=== PATIENT | male | born 1930 | race Caucasian/White ===

== ENCOUNTER 2016-03-31 09:22 | Inpatient (IN) | payer OTHER ==
[~2016-03-31] VITALS: Ht 157.5 cm; Wt 61.2 kg
[2016-03-31 10:21] LABS: HEMATOCRIT 39.8 % (42.0-52.0); HEMOGLOBIN 13.2 g/dl (14.0-18.0); MEAN CORPUSCULAR HEMOGLOBIN 26.6 pg (29.0-33.0); MEAN CORPUSCULAR HGB CONC 33.1 g/dl (32.0-37.0); MEAN CORPUSCULAR VOLUME 80.3 fl (82.0-101.0); MEAN PLATELET VOLUME 7.6 fl (7.4-10.4); PLATELET COUNT 468 10^3/UL (140-440); RED BLOOD COUNT 4.96 10^6/ul (4.70-6.10); RED CELL DISTRIBUTION WIDTH 12.4 % (11.5-14.5); UNCORRECTED WBC 24.1 10^3/ul (4.8-10.8); WHITE BLOOD COUNT 24.1 10^3/ul (4.8-10.8)
[2016-03-31 10:23] LABS: CONDITION 1; LH ANALYZER COMMENTS 1; SUSPECT 1
[2016-03-31 10:31] LABS: ALBUMIN 3.6 g/dl (3.3-4.9)
[2016-03-31 10:32] LABS: POTASSIUM 4.2 mmol/L (3.5-5.1)
[2016-03-31 10:34] LABS: ALBUMIN/GLOBULIN RATIO 1.02; BILIRUBIN,INDIRECT 0.9 mg/dl (0-1.1); BILIRUBIN,TOTAL 0.9 mg/dl (0.2-1.3); CREATININE 0.63 mg/dl (0.61-1.24); TOTAL PROTEIN 7.1 g/dl (6.1-8.1)
--- NOTE | 2016-03-31 10:45 | RADRPT ---
PROCEDURE: XR Lumbar Spine. CLINICAL INDICATION: Low back pain. TECHNIQUE: Three views of the lumbar spine are available for review COMPARISON: None available FINDINGS: There is mild straightening of the lumbar lordosis. Alignment is intact. No acute fracture or dislo cation is seen. The vertebral body heights are all normal. There is moderate to severe disk heigh t loss with discogenic endplate changes at L5-S1 with marked facet arthropathy. There is moderate d isk height loss at L4-L5. The remainder of the intervertebral disk heights are preserved. Paraspino us soft tissues are grossly unremarkable. No radiopaque foreign body is identified. IMPRESSION: 1. No acute fracture or traumatic malalignment. 2. 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 Moderate discogenic diseas e at L5 RPTAT: BB .Nikki Berrios MD, Date Time Electronically viewed and signed by .Nikki Berrios MD, on 03/31/2016 10:45 .O/
--- NOTE | 2016-03-31 10:47 | RADRPT ---
PROCEDURE: XR Cervical Spine. CLINICAL INDICATION: Neck pain TECHNIQUE: 3 views of the cervical spine were performed. The images [facility]. COMPARISON: None. FINDINGS: There is straightening of the cervical lordosis. There is no acute fracture or traumatic malalignme nt. There is moderate disk height loss with endplate osteophytes at C5-C6 and C6-C7. Prominent unc overtebral spurring are seen at C5-C6 and C6-C7. There is no facet arthropathy. The uncovertebral tashia ints are unremarkable. The intervertebral disc spaces are well maintained. There are no abnormal rubén cifications. The prevertebral soft tissues are normal. No radiopaque foreign bodies are identified. IMPRESSION: 1. No acute fracture or traumatic malalignment. 2. Moderate degenerative changes at C5-C6 and C6-C7. RPTAT: BB .Nikki Berrios MD, MD Date Time Electronically viewed and signed by .Nikki Berrios MD, on 03/31/2016 10:46 .O/
--- NOTE | 2016-03-31 10:50 | RADRPT ---
PROCEDURE: XR Chest. CLINICAL INDICATION: Chest pain TECHNIQUE: Single frontal chest x-ray. COMPARISON: None. FINDINGS: There is approximately 6 cm opacity with central lucency which could represent central cavitation in the left mid lung. Several pulmonary nodules are seen in bilateral lungs. There is opacity in the left lung base with blunting of the left costophrenic angle. Left apical air space disease is also identified. There is no pneumothorax. There is aortic atherosclerosis. The osseous structures are intact. IMPRESSION: 1. Approximately 6 cm left hilar opacity with central lucency. Recommend CT chest for further evalu ation. 2. Several small bilateral pulmonary nodules. 3. Focal consolidation in the left lung base with small left pleural effusion. 4. Focal consolidation in the left lung apex. RPTAT: BB .Nikki Berrios MD, Date Time Electronically viewed and signed by .Nikki Berrios MD, on 03/31/2016 10:49 .O/
[2016-03-31 10:55] LABS: TROPONIN-I 0.215 ng/ml (0.00-0.12)
[2016-03-31 11:05] LABS: LYMPHOCYTES # 0.7 10^3/ul (0.8-2.9); MONOCYTE # 2.2 10^3/ul (0.3-0.9); NEUTROPHIL # 20.2 10^3/ul (1.6-7.5)
--- NOTE | 2016-03-31 11:18 | ERA ---
ER Documentation Chief Complaint Date/Time DATE: 03/31/16 TIME: 947 Chief Complaint LT SIDE UPPER BACK PAIN RADIATING TO LOWER BACK X 1 DAY HPI 85-year-old male presents to the emergency department with his son complaining of back pain. Patient was in his normal state of health until approximately 3 months ago which time he immigrated from [facility]. Since then, he has been off his diabetic medications. Patient has been complaining of difficulty breathing and pleuritic chest discomfort as well as a left upper back pain which became worse over the last 1 day. He denies fevers chills sputum production or hemoptysis. He has no significant weight loss. His pain is described as an 8 out of 10. There is no trauma involving the back. ROS All systems reviewed and are negative except as per history of present illness. Medications Home Meds No Active Prescriptions or Reported Meds Allergies Allergies: Coded Allergies: No Known Allergy (Unverified , 03/31/16) PMhx/Soc Hx Alcohol Use: No Hx Tobacco Use: No Smoking Status: Never smoker FmHx Noncontributory for chief complaint Physical Exam Vitals Vital Signs Date Time Temp Pulse Resp B/P Pulse Ox O2 Delivery O2 Flow Rate FiO2 03/31/16 10:06 Nasal Cannula 2 03/31/16 09:27 98.1 115 18 142/67 96 Physical Exam GENERAL: Patient is a thin cachectic ill-appearing gentleman HEENT: Pupils equal, round, and reactive to light. EOMI. There is no scleral icterus. NECK: C-spine is soft and supple, there is no meningismus. There is no cervical lymphadenopathy. LUNGS: Clear to auscultation bilaterally. There are no rales, wheezes or rhonchi. HEART: Regular rate and rhythm, no murmurs, clicks, rubs or gallops. ABDOMEN: Soft, non-tender, non-distended. There are bowel sounds in all four quadrants. No rebound or guarding. EXTREMITIES: There is no peripheral cyanosis or edema. No focal swelling or erythema. Back: No midline spinal tenderness in the cervical or lumbar spine NEURO: The patient moves all four extremities with 5/5 strength. Cranial nerves II - XII are intact. Normal gait. Alert and oriented SKIN: There is no apparent rash or petechiae. HEME/LYMPHATIC: There is no evidence of excessive bruising or lymphedema. PSYCHIATRIC: The patient does not appear anxious or depressed. Result Diagram: 03/31/16 1000 03/31/16 1000 Results 24 hrs Laboratory Tests Test 03/31/16 09:56 03/31/16 10:00 Bedside Glucose 339mg/dL Alanine Aminotransferase (ALT/SGPT) 19IU/L Albumin 3.6g/dl Albumin/Globulin Ratio 1.02 Alkaline Phosphatase 121IU/L Anion Gap 23 Aspartate Amino Transf (AST/SGOT) 20IU/L Band Neutrophils % 4.0% Basophils # 10^3/ul Basophils % % Blood Morphology Comment Blood Urea Nitrogen 19mg/dl Calcium Level 9.0mg/dl Carbon Dioxide Level 20mmol/L Chloride Level 94mmol/L Creatinine 0.63mg/dl Differential Comment MANUAL DIFF Direct Bilirubin 0.00mg/dl Eosinophils # 10^3/ul Eosinophils % % Globulin 3.50g/dl Glucose Level 316mg/dl Hematocrit 39.8% Hemoglobin 13.2g/dl Indirect Bilirubin 0.9mg/dl Lymphocytes # 0.710^3/ul Lymphocytes % 3.0% Mean Corpuscular Hemoglobin 26.6pg Mean Corpuscular Hemoglobin Concent 33.1g/dl Mean Corpuscular Volume 80.3fl Mean Platelet Volume 7.6fl Monocytes # 2.210^3/ul Monocytes % 9.0% Neutrophils # 20.210^3/ul Neutrophils % 84.0% Nucleated Red Blood Cells # 10^3/ul Nucleated Red Blood Cells % /100WBC Platelet Count 90176^3/UL Potassium Level 4.2mmol/L Red Blood Count 4.9610^6/ul Red Cell Distribution Width 12.4% Sodium Level 133mmol/L Total Bilirubin 0.9mg/dl Total Protein 7.1g/dl Troponin I 0.215ng/ml White Blood Count 24.110^3/ul Current Medications Medications (Trade) Dose Ordered Sig/Silvia Route PRN Reason Start Time Stop Time Status Last Admin Dose Admin Insulin Human Regular 4 unit 4 unit ONCE ONCE SC 03/31/16 11:30 03/31/16 11:31 Levofloxacin/ Dextrose 150 ml @ 100 mls/hr ONCE ONCE IVPB 03/31/16 11:30 03/31/16 12:59 Piperacillin Sod/ Tazobactam Sod (Zosyn 3.375gm/ 100 ml (Pmx)) 100 ml @ 200 mls/hr ONCE ONCE IVPB 03/31/16 11:30 03/31/16 11:59 Procedures/MDM Patient was taken to a room, seen and evaluated. Comfort measures were initiated. Diagnostic tests were ordered and reviewed. 3 LEAD RHYTHM STRIP: Sinus tachycardia EK lead EKG reviewed by myself: Sinus tachycardia Normal [place] and intervals Nonspecific ST and T-wave changes without ST elevation Impression: Nonspecific EKG RADIOLOGY: reviewed with the radiologist CONSULTATION: hospitalist was notified for admission REEVALUATION: Patient is remained hemodynamically stable MEDICAL DECISION MAKING: Elderly 85-year-old gentleman with uncontrolled diabetes presents to the emergency department with back pain. Although the differential diagnosis entertained include musculoskeletal complaints, ultimately the patient's evaluation seems indicative of a pulmonary process with referred pain. At this time, based on his chest x-ray, I am concerned over a possible tumor versus abscess versus tuberculosis. Patient has been placed in isolation with a mask. Patient has been covered with antibiotics for possible abscess as well as obvious pneumonia. Patient's blood sugar has been treated with insulin. Patient will require further diagnostic testing with CT scanning as well as further treatment based on that result. Ultimately, patient is obviously high risk and will require admission to the hospital for observation monitoring and treatment. Departure Diagnosis: Primary Impression: Pneumonia Condition: LASHA Tate Mar 31, 2016 11:18
[2016-03-31] MEDS ORDERED: SOD CHLORIDE 0.9% 100 ML ONE (11:19)
[2016-03-31] MEDS ORDERED: IODIXANOL LOCM 100 ML BTL ONE (11:19)
[2016-03-31] MEDS ORDERED: SOD CHLORIDE 0.9% 1,000 ML IV ONE (11:30)
[2016-03-31] MEDS ORDERED: INSULIN REGULAR, HUMAN 100 UNIT/1 ML 3ML VIAL SC ONE (11:30)
[2016-03-31] MEDS ORDERED: PIPER-TAZO 3.375 GM IV (PMX) 100 ML IVPB ONE (11:30)
[2016-03-31] MEDS ORDERED: LEVOFLOXACIN 750MG/D5W (PMX) 150 ML IVPB ONE (11:30)
[2016-03-31] MEDS ORDERED: NACL 0.9% 3 ML SYG IV SCH (12:00)
[2016-03-31] MEDS ORDERED: ACETAMINOPHEN 650 MG SUPP PR PRN (12:00)
[2016-03-31] MEDS ORDERED: ONDANSETRON 4 MG TAB PO PRN (12:00)
[2016-03-31] MEDS ORDERED: DOCUSATE SODIUM 100 MG CAP PO PRN (12:00)
[2016-03-31] MEDS ORDERED: BISACODYL (EC) 5 MG TAB PO PRN (12:00)
[2016-03-31] MEDS: INSULIN ASPART [NOVOLOG] 3 ML PEN SC SCH ×3 (12:00→21:55)
--- NOTE | 2016-03-31 12:09 | RADRPT ---
PROCEDURE: CT Chest With Contrast CLINICAL INDICATION: Possible pulmonary mass TECHNIQUE: Volumetric acquisition of the thorax was performed following the intravenous administra tion of contrast. One or more of the following dose reduction techniques were used: - Automated exposure control. - Adjustment of the mA and/or kV according to patient size. - Use of iterative reconstruction technique. Radiation Dose: CTDI = 6.84 mGy; DLP = 284.99 mGy-cm. COMPARISON: None. FINDINGS: Lung hussein: There is consolidation and volume loss within the left upper lobe most extensive entry manager iorly within the apical posterior segment containing air bronchograms and a 2 cm area of cavitation. There is a smaller area of nodular infiltrate within the left lower lobe containing air bronchogra ms and extending to the posterior lateral pleura. Within the posterior segment of the right upper l obe there is a 1.2 cm noncalcified nodule. There is a 2.4 cm nodular focus with air bronchograms se en within the posterior segment of the right upper lobe. There are also several smaller nodular den sities on the order of 7 and 5 mm within the posterior segment of the right upper lobe. The pleural spaces: There is a moderate water density left pleural fluid accumulation most of which gravitating posteriorly. There is also loculated left pleural fluid accumulation seen anterior medi ally adjacent to the mediastinum. No pneumothorax is evident. Lymph nodes: No pathologically enlarged nodes are evident. Cardiovascular structures: The heart is normal in size. There is a small pericardial effusion. The aorta appears intact and normal in caliber. The central pulmonary arteries appear patent. Thyroid: Unremarkable. Superior abdominal structures: The liver appears fatty infiltrated. No adrenal mass is evident. A 2 cm cyst is seen at the medial superior pole right kidney. There is a small hiatal hernia. A smal l accessory spleen is evident. Osseous structures: Moderate diffuse degenerative spine changes are identified. There are cortical step off this involving the sternum which more likely represent motion artifact then fractures. Cli nical correlation is indicated. A 1 cm hemangioma is seen within the T7 vertebral body. IMPRESSION: 1. There is consolidation and volume loss with air bronchograms involving the left upper lobe parti cularly involving the apical posterior segment. There is an area of necrosis approximate 2 cm in di ameter seen at the posterior lateral aspect of this consolidation. 2. There is a nodular area of consolidation adjacent to the posterior lateral pleural with in the l eft lower lobe containing air bronchograms. 3. A similar nodular infiltrate containing air bronchograms is seen within the posterior segment of the right upper lobe measuring approximately 2.4 cm in diameter. There is also 1.2 cm nodular infi ltrate within the posterior segment of the right upper lobe along with several smaller noncalcified nodular densities on the order of 7-5 mm. These could be inflammatory or neoplastic in etiology. 4. Moderate sized water density left pleural fluid accumulation most of which gravitating posterior ly but there is a loculated component seen along the mediastinum at the medial left upper lung zone. 5. No adenopathy is evident 6. Small pericardial effusion with a normal sized heart. 7. Fatty infiltrated liver with no focal lesion. There is a 2 cm cyst at the medial superior pole right kidney and a small hiatal hernia. 8. Diffuse degenerative spine changes with a 1 cm hemangioma within the T7 vertebral body. Cortica l disruption is seen within the sternum which more likely represents respiratory motion artifact and fractures in view of the lack of surrounding hematoma. Clinical correlation is indicated. Physician Enrique Date Time Electronically viewed and signed by Physician Enrique on 03/31/2016 12:09 /
[2016-03-31 14:06] LABS: CK-MB 2.2 ng/ml (0.0-2.4); TROPONIN-I 0.256 ng/ml (0.00-0.12)
[2016-03-31] MEDS: ASPIRIN 81 MG TAB PO SCH (14:34)
[2016-03-31] MEDS: CEFTRIAXONE 1 GM/50 ML (PMX) 50 ML IVPB SCH (14:34)
[2016-03-31] MEDS: METOPROLOL 25 MG TAB PO SCH ×2 (14:50→21:53)
--- NOTE | 2016-03-31 15:03 | CONS ---
Date/Time of Note Date/Time of Note DATE: 03/31/16 TIME: 14:57 Assessment/Plan Assessment/Plan Additional Assessment/Plan Pneumonia Mildly elevated troponin Diabetes -Patient with CT evidence of pneumonia, effusions. Appears infectious etiology. Troponins are minimally elevated, ECG with no significant ischemic abnormalities , unlikely ACS. Would continue aspirin therapy, obtain echocardiogram, serial cardiac enzymes. Infectious disease and pulmonary evaluation. Consultation Date/Type/Reason Admit Date/Time Type of Consultation: cv Reason for Consultation Elevated troponin Hx of Present Illness This is an 85-year-old male with past medical history of diabetes who recently came here from [facility]. Patient has not taken his diabetic medications for over a month. He came to the emergency room with symptoms of left sided back and chest pain, cough and fatigue. Symptoms have been progressing over the past few days. He denies any fevers but has been having chills. Complains of chest pain with cough and with deep inspiration. He denies exertional chest pain. 12 point review of systems was performed with all pertinent positives and negatives mentioned above and all else is negative Past Medical History Medical History: diabetes Family History Significant Family History: no pertinent family hx Social History Alcohol Use: none Smoking Status: Never smoker Exam/Review of Systems Vital Signs Vitals Vital Signs Date Time Temp Pulse Resp B/P Pulse Ox O2 Delivery O2 Flow Rate FiO2 03/31/16 14:53 108 20 127/64 95 Room Air 03/31/16 10:06 2 03/31/16 09:27 98.1 Exam No apparent distress Constitutional: alert, frail, oriented Head: normocephalic Neck: supple Respiratory: other (course breath sounds bilaterally, no wheezing, mild rhonchi left mid lung base) Cardiovascular: other (S1 and S2 heard), regular rate and rhythm Gastrointestinal: bowel sounds, non-tender, other (no guarding), soft Extremities: other (no edema) Results Result Diagram: 03/31/16 1000 03/31/16 1000 Results 24 hrs Laboratory Tests Test 03/31/16 09:56 03/31/16 10:00 03/31/16 13:08 03/31/16 13:30 Bedside Glucose 339 H 252 H Alanine Aminotransferase (ALT/SGPT) 19 Albumin 3.6 Albumin/Globulin Ratio 1.02 Alkaline Phosphatase 121 Anion Gap 23 H Aspartate Amino Transf (AST/SGOT) 20 Band Neutrophils % 4.0 Basophils # Basophils % Blood Morphology Comment Blood Urea Nitrogen 19 Calcium Level 9.0 Carbon Dioxide Level 20 L Chloride Level 94 L Creatine Kinase 109 171 Creatinine 0.63 Differential Comment MANUAL DIFF Direct Bilirubin 0.00 Eosinophils # Eosinophils % Globulin 3.50 H Glucose Level 316 H Hematocrit 39.8 L Hemoglobin 13.2 L Indirect Bilirubin 0.9 Lymphocytes # 0.7 L Lymphocytes % 3.0 L Mean Corpuscular Hemoglobin 26.6 L Mean Corpuscular Hemoglobin Concent 33.1 Mean Corpuscular Volume 80.3 L Mean Platelet Volume 7.6 Monocytes # 2.2 H Monocytes % 9.0 Neutrophils # 20.2 H Neutrophils % 84.0 H Nucleated Red Blood Cells # Nucleated Red Blood Cells % Platelet Count 468 H Potassium Level 4.2 Red Blood Count 4.96 Red Cell Distribution Width 12.4 Sodium Level 133 L Total Bilirubin 0.9 Total Protein 7.1 Troponin I 0.215 *H 0.256 *H White Blood Count 24.1 H Creatine Kinase Index 1.3 Creatinine Kinase MB (Mass) 2.20 Lactic Acid Level 2.1 Test 03/31/16 14:42 Bedside Glucose 254 H Medications Medications Current Medications Ceftriaxone Sodium 50 ml @ 100 mls/hr Q24H IVPB Last administered on t 14:34; Admin Dose 100 MLS/HR; Start 03/31/16 at 12:00 Levofloxacin/ Dextrose (Levaquin 500mg/ D5W 100 ml (Pmx)) 100 ml @ 100 mls/hr Q24H IVPB ; Start 04/01/16 at 12:00 Ondansetron HCl (Zofran Tab) 4 mg Q6H PRN PO NAUSEA AND/OR VOMITING; Start at 12:00 Acetaminophen (Tylenol Tab) 650 mg Q6H PRN PO PAIN LEVEL 1-3 OR FEVER; Start at 12:00 Acetaminophen (Tylenol Supp) 650 mg Q6H PRN FL PAIN LEVEL 1-3 OR FEVER; Start 03/31/16 at 12:00 Docusate Sodium (Colace) 100 mg Q12H PRN PO CONSTIPATION; Start 03/31/16 at 12: 00 Bisacodyl (Dulcolax) 5 mg DAILY PRN PO CONSTIPATION; Start 03/31/16 at 12:00 Famotidine (Pepcid) 20 mg Q12 PO ; Start 03/31/16 at 21:00 Insulin Glargine (Lantus) 5 unit QPM SC ; Start 03/31/16 at 21:00 Metoprolol Tartrate (Lopressor) 25 mg BID PO Last administered on 03/31/16 14: 50; Admin Dose 25 MG; Start 03/31/16 at 12:00 Aspirin (Aspirin) 81 mg DAILY PO Last administered on 03/31/16 14:34; Admin Dose 81 MG; Start 03/31/16 at 12:00 Procedures Procedures ECG demonstrates sinus tachycardia, nonspecific STT wave abnormalities Juan Lowery DO Mar 31, 2016 15:03
--- NOTE | 2016-03-31 17:05 | CONS ---
DATE OF ADMISSION: 03/31/2016 DATE OF CONSULTATION: 03/31/2016 TYPE OF CONSULTATION: Infectious Disease. REASON FOR CONSULTATION: Antibiotic management. HISTORY OF PRESENT ILLNESS: The patient is an 85-year-old male who presents to the emergen cy room with left-sided upper back pain radiating to lower back of 1 day's duration. The patient im migrated from [facility] 3 months ago. Since then he has been off his diabetic medications and has been complaining of difficulty breathing with pleuritic chest pain and discomfort as well as left u pper back pain which became worse over the last day. Denies fever, chills, sputum production or hem optysis. He has no significant weight loss. His pain is described as 8/10. On admission, his whit e count was 24.1, H and H of 13.2 and 39.8, platelet count 468,000. BUN and creatinine 19/0.63, glu cose random is . Chest x-ray and lumbar spine x-ray which showed no acute fracture or traumati c malalignment, moderate to severe discogenic disease with facet arthropathy at L5-S1, moderate disc ogenic disease at L5. CT scan of the chest there is consolidation and volume loss with air broncho grams involving left upper lobe, particularly involving the apical posterior segment. There is an a jennifer of necrosis approximately 2 cm in diameter seen at the posterior lateral aspect of this consolid ation. There is a nodular area of consolidation adjacent to the posterior lateral pleura within the left lower lobe containing air bronchograms. A similar nodular infiltrate containing air bronchogr ams is seen within the posterior segment of the right upper lobe measuring approximately 2.4 cm in d iameter. There was also a 1.2 cm nodular infiltrate within the posterior segment of the right upper lobe along with several smaller noncalcified nodular densities on the order of 7 to 5 mm. These co uld be inflammatory or neoplastic in etiology, moderate sized water density left pleural fluid accum ulation, most of which is gravitating posteriorly. There is loculated component seen along the medi astinum at the medial left upper lung zone, no adenopathy present. Small pericardial effusion, norm al heart size, fatty infiltration of the liver, 2 cm cyst in the medial superior pole of the right k idney and a small hiatal hernia, diffuse degenerative spine changes with a 1 cm hemangioma within th e T7 vertebral body, cortical disruption is seen within the sternum which more likely represents res piratory motion artifact and fractures. In view of the lack of surrounding hematoma, a cervical spi ne x-ray shows no acute fractures, moderate degenerative changes at C5-C6 and C6-C7. A chest x-ray approximately 6 cm left hilar opacity with central lucency, several small bilateral pulmonary nodule s, focal consolidation in the left lung base with small pleural effusions, focal consolidation in th e left lung apex. The patient was begun in the emergency room on Zosyn and then changed to Levaquin and ceftriaxone. His troponin was elevated at 0.215. AFB cultures and smears were ordered. He remains on ceftriaxone and Levaquin. I do not see culture s done. PAST MEDICAL HISTORY: Operations as outlined. FAMILY HISTORY: Noncontributory. SOCIAL HISTORY: He does not smoke, drink or abuse drugs. ALLERGIES: NONE TO PENICILLIN, SULFA OR FOODS. MEDICATIONS: Per chart. REVIEW OF SYSTEMS: As per HPI. PHYSICAL EXAMINATION: GENERAL: The patient is a thin, cachectic, ill-appearing male who is awake, responsive, in no acute distress. VITAL SIGNS: Stable. He is afebrile. SKIN: Without generalized rash or icterus. HEENT: Within normal limits. NECK: Supple. LYMPH NODES: None palpable. CHEST: Decreased breath sounds at both bases. HEART: Without murmur or gallop. ABDOMEN: Soft, nontender, without organosplenomegaly or masses. EXTREMITIES: Without cyanosis, clubbing, or edema. RECTAL AND GENITAL: Deferred. NEUROLOGIC: No focal neurological abnormalities. IMPRESSION AND PLAN: The patient for the time being has community-acquired pneumonia with consolida tion and effusion, he should be seen by pulmonary. We should probably get a thoracentesis diagnosti c. In addition, we should get cultures of his sputum and blood. I do not see urinalysis either. I will dictate my findings to the hospitalist. Dictated By: BECKI MORLEY MD, JD/RAISA Conf#: [id number] DID#: [id number]
[2016-03-31 17:33] LABS: ADD UMIC NO; URINE BILIRUBIN (Dip) NEGATIVE (NEGATIVE); URINE BLOOD (Dip) NEGATIVE (NEGATIVE); URINE COLOR LT. YELLOW (YELLOW); URINE KETONES (Dip) 3+ (NEGATIVE); URINE LEUKOCYTE ESTERASE (Dip) NEGATIVE (NEGATIVE); URINE NITRITE (Dip) NEGATIVE (NEGATIVE); URINE TOTAL PROTEIN (Dip) NEGATIVE (NEGATIVE); URINE UROBILINOGEN (Dip) 0.2 E.U./dL (0.1-1.0)
[2016-03-31 17:46] LABS: CK-MB 2.42 ng/ml (0.0-2.4)
[2016-03-31 17:49] LABS: TROPONIN-I 0.311 ng/ml (0.00-0.12)
--- NOTE | 2016-03-31 17:54 | HP ---
DATE OF ADMISSION: 03/31/2016 CONSULTANTS: 1. Infectious disease. 2. Technical Publications Writer. 3. Cardiology. CHIEF COMPLAINT: Cough, congestion and upper back pain. HISTORY OF PRESENT ILLNESS: This is an 85-year-old gentleman with past medical history of diabetes mellitus, noncompliant with his medication, who has traveled to [facility] from [facility]. Abo ut 2 months ago has been having 3 weeks of cough and congestion and upper back pain since yesterday. The cough started about 3 weeks ago, not accompanied with any shortness of breath with sputum. Co ugh is productive. No evidence of hematemesis, hematochezia, hematemesis. No night sweats. No lise nge in his activity or strain. He denies having any abdominal pain, nausea, vomiting, diarrhea. No headache, dizziness, lightheadedness. No change in visual acuity, diplopia, photophobia. No neck pain, no restricted range of motion in upper and lower extremity or any other discomfort except what was stated above. The patient does not recall the medication that he was on when he was in [facility], although he has not taken his diabetic medications since he has been in the [facility]. He is planning to travel back to [facility] about a month from now. At this time he resides with his family member, there is no sick contact, nobody else has the above signs and symptoms. Also there is no one in the family is complaining of having cough with shortness of breath. PAST MEDICAL AND SURGICAL HISTORY: Diabetes mellitus. FAMILY HISTORY: Noncontributory. SOCIAL HISTORY: No history of smoking, no alcohol, no illicit drug. Recent travel history from [facility]. MEDICATIONS: Unknown. ALLERGIES: NO KNOWN DRUG ALLERGIES. REVIEW OF SYSTEMS: As above per HPI, otherwise 12 review of systems has been found to be negative. PHYSICAL EXAMINATION: VITAL SIGNS: Temperature 98.1, pulse 108, respiration rate 20, blood pressure 127/64, oxygen 95%. GENERAL APPEARANCE: Patient is lying in bed comfortably without any distress. He is awake, alert, oriented. He is able to answer my questions properly. He is not using any accessory muscles for br eathing. Body habitus within normal limits with a BMI of 23.3. EYES AND ENT: Conjunctivae and lids are normal. Pupils are normal. Extraocular normal. Hearing g rossly normal. Lips, teeth and gums are normal. Oral mucosa is moist. NECK: Supple. Trachea is midline. No lymphadenopathy. RESPIRATORY: Effort is normal. Clear to auscultation bilaterally. CARDIOVASCULAR: Normal S1, S2. Regular rhythm and rate. No murmur, no bruits, no edema. Peripher al pulses, radial pulses palpable. Cap refill is normal. CHEST: Normal expansion of thorax during inspiration. GASTROINTESTINAL: Abdomen is soft, nontender, not distended. Bowel sounds present. No guarding or rebound. GENITOURINARY: Deferred. MUSCULOSKELETAL: Upper and lower extremities within normal limits. There is no CVA tenderness. NEUROLOGIC: Cranial nerves II through XII are grossly intact. PSYCHIATRIC: Normal judgment and insight. Alert and oriented x3. Mood and affect is normal. LABORATORY WORK AND IMAGING: Sodium 133, potassium 4.2, chloride 94, bicarbonate 20, BUN 19, creati nine 0.63, glucose 316, lactic acid 2.1. LFTs all within normal limits. Troponin 0.215 and 0.256. Total protein 7.1, albumin 3.6. WBC 24.1, hemoglobin 13.3, hematocrit 39.8, MCV 80.3, platelets 468. Chest x-ray was approximately 6 cm in left hilar opacity with central lucency. Several small bilateral pulmonary nodules. Focal consolidation left lung base with a small pleural effusion, focal consolidation in left lung apex. CT of the chest with contrast demonstrated there is consolidation and volume loss with air bronchogr ams involving the left upper lobe, particularly involving and apicoposterior segment. There is an a jennifer of necrosis approximately 2 cm in diameter seen at the posterior lateral aspect of this constell ation. There is a nodule area of consolidation, adjacent to posterior lateral pleura within the lef t lower lobe. Continue air bronchograms. This is similar nodular infiltrate continue bronchogram i s seen within the posterior segment of the left upper lobe measuring approximately 2.4 cm in diamete r. There is also a 1.2 cm nodular infiltrates within the posterior segment of the right upper lobe along with several smaller noncalcified nodular density in the order of 7 to 5 mm. This could be in flammatory or neoplastic etiology. Moderate sized wide density left pleural fluid accumulation whi ch is most gravitating posteriorly but does localize component seen along the mediastinum at the med ial left upper lung zone, no other adenopathy is evident. Fatty infiltrate of liver with focal lesi on. There is a 2 cm cyst in the medial superior pole of the right kidney, small hiatal hernia, diff use degenerative spine changes with a 1 cm hemangioma within T7 vertebral body. Cervical spine x-r ay, no acute fracture or traumatic or malalignment, moderate degenerative changes at C5-C6 to C6-C7. ASSESSMENT AND PLAN: 1. Left lower lobe pneumonia/pleural effusion, raw stock machine loader has been consulted. Patient has been placed on Rocephin and Levaquin. We will follow up his recommendations. 2. Several pulmonary nodules seen in bilateral lung. Pulmonology has been consulted. Follow his r ecommendation regarding possible CT-guided biopsy. 3. Uncontrolled diabetes mellitus. Patient has been started on low carbohydrate diet, insulin slid ing scale, Lantus. Follow up hemoglobin A1c in a.m. 4. Microcytic anemia. Follow up iron panel. 5. Non-ST myocardial infarction. Cardiology has been consulted. Patient has been started on aspir in. Follow up lipid panel. Follow cardiology recommendation. We will obtain 2D echocardiogram. 6. Mild hypernatremia. Follow up electrolytes in a.m. 7. For deep venous thrombosis prophylaxis, on sequential compression devices. 8. For gastrointestinal prophylaxis, on Pepcid. 9. We will continue to monitor patient closely. Further recommendations, management and treatment as per clinical course. Total amount of time was spent for evaluation of patient and admission workup 55 minutes. Dictated By: DEBBY CARTER MD PN/NTS Conf#: [id number] DID#: [id number]
[2016-03-31] MEDS ORDERED: INSULIN GLARGINE [LANtus] 3 ML PEN SC SCH (21:00)
[2016-03-31] MEDS: FAMOTIDINE 20 MG TAB PO SCH (21:53)
[2016-03-31 22:00] VITALS: TEMP 98.1
[2016-03-31 22:35] VITALS: PULSE 92
[2016-03-31 22:45] VITALS: BP 115/62; PULSE 101; RESP 18
[2016-03-31 23:18] VITALS: Ht 157.5 cm; Wt 61.2 kg
[2016-04-01] VITALS (15 sets, daily range): BP systolic 100–142; BP diastolic 55–78; PULSE 80–126; RESP 18–20
[2016-04-01 00:34] LABS: CK-MB 1.52 ng/ml (0.0-2.4); TROPONIN-I 0.253 ng/ml (0.00-0.12)
[2016-04-01] MEDS: ACETAMINOPHEN 325 MG TAB PO PRN ×2 (01:17→17:19)
[2016-04-01] MEDS ORDERED: AMIODARONE 150 MG INJ IV STA (05:22)
[2016-04-01] MEDS ORDERED: SOD CHLORIDE 0.9% 250 ML IV ONE (05:30)
[2016-04-01] MEDS ORDERED: AMIODARONE 150MG/D5W BOLUS 100 ML IV ONE (05:30)
[2016-04-01] MEDS ORDERED: AMIODARONE 900 MG in DEXTROSE 5% 482 ML IV SCH (05:40)
[2016-04-01] MEDS: FAMOTIDINE 20 MG TAB PO SCH ×2 (08:12→21:06)
[2016-04-01] MEDS: METOPROLOL 25 MG TAB PO SCH ×2 (08:12→21:06)
[2016-04-01] MEDS: ASPIRIN 81 MG TAB PO SCH (08:12)
[2016-04-01] MEDS: INSULIN ASPART [NOVOLOG] 3 ML PEN SC SCH ×4 (08:40→21:00)
[2016-04-01 10:02] LABS: BASOPHILS % 0.1 % (0.0-2.0); HEMOGLOBIN 13.6 g/dl (14.0-18.0); LYMPHOCYTES # 1.1 10^3/ul (0.8-2.9); LYMPHOCYTES % 4.3 % (15.0-51.0); MEAN CORPUSCULAR HEMOGLOBIN 26.4 pg (29.0-33.0); MEAN CORPUSCULAR HGB CONC 32.4 g/dl (32.0-37.0); MEAN CORPUSCULAR VOLUME 81.5 fl (82.0-101.0); MEAN PLATELET VOLUME 8.1 fl (7.4-10.4); MONOCYTE # 2.5 10^3/ul (0.3-0.9); MONOCYTES % 10.3 % (0.0-11.0); NEUTROPHILS % 85.3 % (39.0-77.0); PLATELET COUNT 404 10^3/UL (140-440); RED BLOOD COUNT 5.15 10^6/ul (4.70-6.10); RED CELL DISTRIBUTION WIDTH 12.3 % (11.5-14.5); UNCORRECTED WBC 24.6 10^3/ul (4.8-10.8); WHITE BLOOD COUNT 24.6 10^3/ul (4.8-10.8)
[2016-04-01 10:13] LABS: CREATININE 0.63 mg/dl (0.61-1.24)
[2016-04-01 10:14] LABS: CALCIUM 8.7 mg/dl (8.4-10.2); CHOL/HDL RATIO 4.5 RATIO
[2016-04-01 10:26] LABS: CONDITION 1; LH ANALYZER COMMENTS 1; SUSPECT 1
[2016-04-01 11:18] LABS: THYROID STIMULATING HORMONE 1.98 MIU/L (0.465-4.680)
--- NOTE | 2016-04-01 11:50 | PN ---
Date/Time of Note Date/Time of Note DATE: 04/01/16 TIME: 11:38 Assessment/Plan VTE Prophylaxis VTE Prophylaxis Intervention: SCD's Lines/Catheters IV Catheter Type (from [facility]): Saline Lock Urinary Cath still in place: No Assessment/Plan Chief Complaint/Hosp Course ASSESSMENT AND PLAN: 1. 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 Patient has been placed on Rocephin and Levaquin. Plan for ultrasound-guided thoracocentesis, follow up cytology, and pleural studies, follow-up AFB 2. Several pulmonary nodules seen in bilateral lung. Pulmonology has been consulted. Follow his recommendation 3. Uncontrolled diabetes mellitus. Patient has been started on low carbohydrate diet, insulin sliding scale, Lantus. 4. Microcytic anemia. Stable 5. Elevated troponin. Cardiology has been consulted. Continue aspirin. lipid panel are in acceptable range. Follow cardiology recommendation. Follow- up 2D echocardiogram. 6. Mild hypernatremia. Follow up electrolytes in a.m. 7. For deep venous thrombosis prophylaxis, on sequential compression devices. 8. For gastrointestinal prophylaxis, on Pepcid. We will continue to monitor patient closely. Further recommendations, management and treatment as per clinical course. Problems: Subjective 24 Hr Interval Summary Free Text/Dictation No acute changes She denies of any chest pain or shortness of breath No nausea vomiting diarrhea Decrease in frequency of cough No hemoptysis Exam/Review of Systems Vital Signs Vitals Vital Signs Date Time Temp Pulse Resp B/P Pulse Ox O2 Delivery O2 Flow Rate FiO2 04/01/16 09:23 89 04/01/16 07:22 97.9 18 142/78 95 04/01/16 04:40 Room Air 03/31/16 10:06 2 Intake and Output 03/31/16 03/31/16 04/01/16 15:00 23:00 07:00 Intake Total 360 ml Output Total 300 ml Balance 60 ml Exam General: The patient is well-developed, Not in acute distress. HEENT: Atraumatic, normocephalic. The pupils are equal and round . Neck: Supple with full range of motion. Chest: Normal expansion of the thorax during inspiration Lungs: Decreased breath sounds in left lower lung field, otherwise no crackles rales or wheezing Heart: Normal S1-S2, Regular rhythm and rate. Abdomen: Soft , nontender, nondistended , bowel sounds are present. Extremities: Normal to inspection, no edema no cyanosis Neurologic: Normal mental status,The patient is awake, alert and oriented . Results Result Diagram: 04/01/16 0920 04/01/16 0920 Results 24 hrs Laboratory Tests Test 03/31/16 13:08 03/31/16 13:30 03/31/16 14:42 03/31/16 17:15 Bedside Glucose 252 H 254 H Creatine Kinase 171 148 Creatine Kinase Index 1.3 1.6 Creatinine Kinase MB (Mass) 2.20 2.42 H Lactic Acid Level 2.1 Troponin I 0.256 *H 0.311 *H Urine Bilirubin NEGATIVE Urine Clarity CLEAR Urine Color LT. YELLOW Urine Glucose 0.5% H Urine Hemoglobin NEGATIVE Urine Ketones 3+ H Urine Leukocyte Esterase NEGATIVE Urine Nitrite NEGATIVE Urine Specific [place] 1.020 Urine Total Protein NEGATIVE Urine Urobilinogen 0.2 E.U./dL Urine pH 5.0 Test 03/31/16 21:05 03/31/16 23:37 04/01/16 02:53 04/01/16 08:10 Bedside Glucose 214 293 H 234 H Creatine Kinase 179 Creatine Kinase Index 0.8 Creatinine Kinase MB (Mass) 1.52 Troponin I 0.253 *H Test 04/01/16 09:20 Anion Gap 19 H Basophils # 0.0 Basophils % 0.1 Blood Morphology Comment Blood Urea Nitrogen 20 Calcium Level 8.7 Carbon Dioxide Level 21 Chloride Level 98 Cholesterol Level 95 L Cholesterol/HDL Ratio 4.5 Creatinine 0.63 Eosinophils # 0.0 Eosinophils % 0.0 Glucose Level 279 H HDL Cholesterol 21 L Hematocrit 42.0 Hemoglobin 13.6 L LDL Cholesterol, Calculated 59 Lymphocytes # 1.1 Lymphocytes % 4.3 L Magnesium Level 2.0 Mean Corpuscular Hemoglobin 26.4 L Mean Corpuscular Hemoglobin Concent 32.4 Mean Corpuscular Volume 81.5 L Mean Platelet Volume 8.1 Monocytes # 2.5 H Monocytes % 10.3 Neutrophils # 21.0 H Neutrophils % 85.3 H Nucleated Red Blood Cells # 0.0 Nucleated Red Blood Cells % 0.0 Platelet Count 404 Potassium Level 4.0 Red Blood Count 5.15 Red Cell Distribution Width 12.3 Sodium Level 134 L Thyroid Stimulating Hormone (TSH) 1.980 Triglycerides Level 77 White Blood Count 24.6 H Medications Medications Current Medications Ceftriaxone Sodium 50 ml @ 100 mls/hr Q24H IVPB Last administered on 14:34; Admin Dose 100 MLS/HR; Start 03/31/16 at 12:00 Levofloxacin/ Dextrose (Levaquin 500mg/ D5W 100 ml (Pmx)) 100 ml @ 100 mls/hr Q24H IVPB ; Start 04/01/16 at 12:00 Ondansetron HCl (Zofran Tab) 4 mg Q6H PRN PO NAUSEA AND/OR VOMITING; Start at 12:00 Acetaminophen (Tylenol Tab) 650 mg Q6H PRN PO PAIN LEVEL 1-3 OR FEVER Last administered on 04/01/16 01:17; Admin Dose 650 MG; Start 03/31/16 at 12:00 Acetaminophen (Tylenol Supp) 650 mg Q6H PRN [place] PAIN LEVEL 1-3 OR FEVER; Start 03/31/16 at 12:00 Docusate Sodium (Colace) 100 mg Q12H PRN PO CONSTIPATION; Start 03/31/16 at 12: 00 Bisacodyl (Dulcolax) 5 mg DAILY PRN PO CONSTIPATION; Start 03/31/16 at 12:00 Famotidine (Pepcid) 20 mg Q12 PO Last administered on 04/01/16 08:12; Admin Dose 20 MG; Start 03/31/16 at 21:00 Insulin Glargine (Lantus) 5 unit QPM SC Last administered on 03/31/16 21:56; Admin Dose 5 UNIT; Start 03/31/16 at 21:00 Metoprolol Tartrate (Lopressor) 25 mg BID PO Last administered on 04/01/16 08: 12; Admin Dose 25 MG; Start 03/31/16 at 12:00 Aspirin (Aspirin) 81 mg DAILY PO Last administered on 04/01/16 08:12; Admin Dose 81 MG; Start 03/31/16 at 12:00 Influenza Virus Vaccine 0.5 ml 0.5 ml ONCE ONCE IM* ; Start 04/03/16 at 09:00; Stop 04/03/16 at 09:01 Amiodarone HCl/ Dextrose (Cordarone Iv/ D5W) 500 ml @ 0 mls/hr Q0M IV Last administered on 04/01/16 06:48; Admin Dose 33.4 MLS/HR; Start 04/01/16 at 05:40 ; Stop 04/02/16 at 05:39 DEBBY CARTER MD Apr 01, 2016 11:50
[2016-04-01] MEDS ORDERED: LEVOFLOXACIN 500MG/D5W (PMX) 100 ML IVPB SCH (12:00)
[2016-04-01] MEDS: CEFTRIAXONE 1 GM/50 ML (PMX) 50 ML IVPB SCH (12:08)
[2016-04-01 12:33] LABS: INR 1.37; PROTIME 16.9 Sec (12.2-14.2); PT RATIO 1.3
[2016-04-01 12:34] LABS: PARTIAL THROMBOPLASTIN TIME 31.7 Sec (25.0-35.0)
--- NOTE | 2016-04-01 14:13 | RADRPT ---
Echocardiogram Report Patient Name: ELENA MADISON Gender: Male Date: 1930 Study Date: 01-Apr-2016 Harness Builder: [facility] Location: [id number] Ref. Physician: DEBBY CARTER Quality: Technically Difficult Study Procedures: Transthoracic echocardiogram with complete 2D, M-Mode, and doppler examination. Indications: Shortness of breath. 2D/M Mode Doppler Measurement Value Normal Ranges Measurement Value Normal Ranges LVIDd 2D 3.9 3.5 - 5.6 cm AV Peak Home 1.3 m/sec LVIDs 2D 3.4 2.1 - 4.1 cm AV Peak PG 6.0 mmHg FS 2D 14.0 % AI Peak PG 39.0 mmHg LVPWd 2D 1.2 0.6 - 1.1 cm AI Peak Home 3.1 m/sec IVSd 2D 1.3 0.6 - 1.1 cm AI PHT 438.0 msec IVS/LVPW 2D 1.1 LVOT Peak Home 0.9 m/sec AoR Diam 2D 2.7 2.0 - 3.7 cm LVOT Peak PG 3.0 mmHg LA/Ao 2D 1 0 - 1 MV E Peak Home 0.9 m/sec EDV 2D 61.2 cm3 ESV 2D 39.0 cm3 LA Dimen 2D 2.7 2.3 - 4.0 cm Findings Left Ventricle: Normal left ventricular cavity size. Left ventricular wall thickness upper limits of normal. Moderate to severe left ventricular systolic dysfunction. Ejection fraction is visually estimated at 35 %. Abnormal Diastolic Function. Right Ventricle: Normal right ventricular size. Normal right ventricular systolic function. Left Atrium: Upper limit of normal left atrial size. Right Atrium: The right atrium is normal in size. Mitral Valve: Normal appearance of the mitral valve. Mild mitral valve regurgitation. Aortic Valve: Aortic valve not well visualized. No hemodynamically significant aortic stenosis by doppler. Trace aortic valve regurgitation. Tricuspid Valve: Normal appearance and function of the tricuspid valve with trace physiologic regurgitation. Pulmonic Valve: Pulmonic valve not well visualized. There is trace pulmonic regurgitation. Pericardium: Trivial pericardial effusion. Left pleural effusion seen. Aorta: Normal aortic root. IVC: Normal size and normal respiratory collapse consistent with normal right atrial pressure. Pulmonary Artery: Not well visualized. Conclusions Normal left ventricular cavity size. Left ventricular wall thickness upper limits of normal. Moderate to severe left ventricular systolic dysfunction. Ejection fraction is visually estimated at 35 %. Abnormal Diastolic Function. Normal right ventricular size. Normal right ventricular systolic function. Upper limit of normal left atrial size. The right atrium is normal in size. Normal appearance of the mitral valve. Mild mitral valve regurgitation. No significant valvular stenosis or regurgitation seen of remaining visualized valves. Trivial pericardial effusion. Left pleural effusion seen. Electronically Signed By: Juan Lowery 01-Apr-2016 14:12:36 -0800 Patient Name: ELENA MADISON Study Date: 01-Apr-[id number]
--- NOTE | 2016-04-01 14:21 | CONS ---
Date/Time of Note Date/Time of Note DATE: 04/01/16 TIME: 14:16 Assessment/Plan Assessment/Plan Additional Assessment/Plan Pneumonia Cardiomyopathy with ejection fraction 35% New-onset atrial fibrillation Mildly elevated troponin Diabetes -Patient with atrial fibrillation new onset this morning, started IV amiodarone and converted to sinus rhythm. Would continue IV amiodarone until tomorrow and start by mouth amiodarone to help maintain sinus rhythm. Given decreased ejection fraction noted on echocardiogram, will start DIAN inhibitor and beta melissa. Consultation Date/Type/Reason Admit Date/Time Mar 31, 2016 at 11:48 Initial Consult Date Type of Consultation: cv 24 HR Interval Summary Free Text/Dictation Patient denies chest pain today, shortness of breath is better and cough Exam/Review of Systems Vital Signs Vitals Vital Signs Date Time Temp Pulse Resp B/P Pulse Ox O2 Delivery O2 Flow Rate FiO2 04/01/16 12:10 80 04/01/16 11:00 98.8 19 140/67 91 04/01/16 08:00 Nasal Cannula 3.0 Intake and Output 03/31/16 03/31/16 04/01/16 15:00 23:00 07:00 Intake Total 360 ml Output Total 300 ml Balance 60 ml Exam No apparent distress Constitutional: alert, frail, oriented Head: normocephalic Neck: supple Respiratory: other (course breath sounds bilaterally with left-sided rhonchi, no wheezing) Cardiovascular: other (S1-S2 heard), regular rate and rhythm Gastrointestinal: bowel sounds, non-tender, soft Extremities: other (no edema) Results Result Diagram: 04/01/16 0920 04/01/16 0920 Results 24 hrs Laboratory Tests Test 03/31/16 14:42 03/31/16 17:15 03/31/16 21:05 03/31/16 23:37 Bedside Glucose 254 H 214 Creatine Kinase 148 179 Creatine Kinase Index 1.6 0.8 Creatinine Kinase MB (Mass) 2.42 H 1.52 Troponin I 0.311 *H 0.253 *H Urine Bilirubin NEGATIVE Urine Clarity CLEAR Urine Color LT. YELLOW Urine Glucose 0.5% H Urine Hemoglobin NEGATIVE Urine Ketones 3+ H Urine Leukocyte Esterase NEGATIVE Urine Nitrite NEGATIVE Urine Specific [place] 1.020 Urine Total Protein NEGATIVE Urine Urobilinogen 0.2 E.U./dL Urine pH 5.0 Test 04/01/16 02:53 1/18/17 08:10 04/01/16 09:20 04/01/16 12:02 Bedside Glucose 293 H 234 H 350 H Anion Gap 19 H Basophils # 0.0 Basophils % 0.1 Blood Morphology Comment Blood Urea Nitrogen 20 Calcium Level 8.7 Carbon Dioxide Level 21 Chloride Level 98 Cholesterol Level 95 L Cholesterol/HDL Ratio 4.5 Creatinine 0.63 Eosinophils # 0.0 Eosinophils % 0.0 Glucose Level 279 H HDL Cholesterol 21 L Hematocrit 42.0 Hemoglobin 13.6 L LDL Cholesterol, Calculated 59 Lymphocytes # 1.1 Lymphocytes % 4.3 L Magnesium Level 2.0 Mean Corpuscular Hemoglobin 26.4 L Mean Corpuscular Hemoglobin Concent 32.4 Mean Corpuscular Volume 81.5 L Mean Platelet Volume 8.1 Monocytes # 2.5 H Monocytes % 10.3 Neutrophils # 21.0 H Neutrophils % 85.3 H Nucleated Red Blood Cells # 0.0 Nucleated Red Blood Cells % 0.0 Platelet Count 404 Potassium Level 4.0 Red Blood Count 5.15 Red Cell Distribution Width 12.3 Sodium Level 134 L Thyroid Stimulating Hormone (TSH) 1.980 Triglycerides Level 77 White Blood Count 24.6 H Test 04/01/16 12:10 Activated Partial Thromboplast Time 31.7 INR International Normalized Ratio 1.37 Prothrombin Time 16.9 H Prothrombin Time Ratio 1.3 Medications Medications Current Medications Ceftriaxone Sodium 50 ml @ 100 mls/hr Q24H IVPB Last administered on 12:08; Admin Dose 100 MLS/HR; Start 03/31/16 at 12:00 Levofloxacin/ Dextrose (Levaquin 500mg/ D5W 100 ml (Pmx)) 100 ml @ 100 mls/hr Q24H IVPB Last administered on 04/01/16 12:08; Admin Dose 100 MLS/HR; Start at 12:00 Ondansetron HCl (Zofran Tab) 4 mg Q6H PRN PO NAUSEA AND/OR VOMITING; Start at 12:00 Acetaminophen (Tylenol Tab) 650 mg Q6H PRN PO PAIN LEVEL 1-3 OR FEVER Last administered on 04/01/16 01:17; Admin Dose 650 MG; Start 03/31/16 at 12:00 Acetaminophen (Tylenol Supp) 650 mg Q6H PRN [place] PAIN LEVEL 1-3 OR FEVER; Start 03/31/16 at 12:00 Docusate Sodium (Colace) 100 mg Q12H PRN PO CONSTIPATION; Start 03/31/16 at 12: 00 Bisacodyl (Dulcolax) 5 mg DAILY PRN PO CONSTIPATION; Start 03/31/16 at 12:00 Famotidine (Pepcid) 20 mg Q12 PO Last administered on 04/01/16 08:12; Admin Dose 20 MG; Start 03/31/16 at 21:00 Insulin Glargine (Lantus) 5 unit QPM SC Last administered on 03/31/16 21:56; Admin Dose 5 UNIT; Start 03/31/16 at 21:00 Metoprolol Tartrate (Lopressor) 25 mg BID PO Last administered on 04/01/16 08: 12; Admin Dose 25 MG; Start 03/31/16 at 12:00 Aspirin (Aspirin) 81 mg DAILY PO Last administered on 04/01/16 08:12; Admin Dose 81 MG; Start 03/31/16 at 12:00 Influenza Virus Vaccine 0.5 ml 0.5 ml ONCE ONCE IM* ; Start 04/03/16 at 09:00; Stop 04/03/16 at 09:01 Amiodarone HCl/ Dextrose (Cordarone Iv/ D5W) 500 ml @ 0 mls/hr Q0M IV Last administered on 04/01/16 06:48; Admin Dose 33.4 MLS/HR; Start 04/01/16 at 05:40 ; Stop 04/02/16 at 05:39 Juan Lowery DO Apr 01, 2016 14:21
[2016-04-01] MEDS ORDERED: MAGNESIUM SULFATE 1 GM/D5W 100 ML IVPB ONE (14:30)
--- NOTE | 2016-04-01 17:36 | CONS ---
DATE OF ADMISSION: 03/31/2016 DATE OF CONSULTATION: 04/01/2016 TYPE OF CONSULTATION: Pulmonary. REASON FOR CONSULTATION: Abnormal chest CT, fever, chills. HISTORY OF PRESENT ILLNESS: This is an 85-year-old gentleman, multiple medical problems, admitted [facility] for cough, congestion, increasing productive sputum. Denies any nausea, vomiting. He has recently traveled from [facility] several months ago, has a history of diabetes mellitus but per ch art appears somewhat noncompliant. No hemoptysis or hematemesis. Objective fever, generalized arth ralgia but no recent weight loss. PAST MEDICAL HISTORY: As above. SOCIAL HISTORY: The patient is a nonsmoker. No alcohol, no history of drug use. Recent travel fro [facility]. ALLERGIES: NO KNOWN ALLERGIES. PHYSICAL EXAMINATION: GENERAL: Chronically ill-appearing elderly gentleman, appears comfortable at rest. No acute distre ss. No accessory muscle use. VITAL SIGNS: Temperature 98, pulse is 80, blood pressure 140/67, O2 saturation 96% on 3 L nasal can nula. NECK: Supple. No JVD or lymphadenopathy. CARDIAC: S1, S2. No added sounds or murmurs. CHEST: Diminished air entry, left lung. ABDOMEN: Soft, nontender. No guarding or rebound. EXTREMITIES: No cyanosis, clubbing, edema. NEUROLOGIC: Generalized weakness. LABORATORIES: White count 24.6, hemoglobin 13.6, platelets of 404. BUN 20, creatinine 0.63. INR 1 .37. 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 No significant mediastinal adenopathy. IMPRESSION AND PLAN: Significant radiographic abnormalities concerning for either infection and/or malignant process in the left upper lobe in a patient who has recently arrived from [facility]. The patient will need: 1. Respiratory isolation and serial sputum studies to rule out TB. 2. QuantiFERON Gold. 3. Place PPD. 4. Check coccidioidomycosis. 5. Pleural fluid analysis with cytology to rule out malignancy, which would be both diagnostic and confirm staging if positive for malignancy. 6. If no resolution of infiltrate and/or dense left upper lobe process, will require bronchoscopy w ith biopsies. Dictated By: CHRISTOPHER RAMOS/RAISA Conf#: [id number] [facility]#: [id number]
--- NOTE | 2016-04-01 17:49 | PN ---
DATE: 04/01/2016 INFECTIOUS DISEASE PROGRESS NOTE SUBJECTIVE: No acute changes overnight. The patient is lying comfortably in bed, complaining of le ft-sided rib pain, no fevers. WBC today 24.6, platelets 404, neutrophils 85.3. BUN 20, creatinine 0.63. MICROBIOLOGY: Urine culture negative. ANTIMICROBIALS: The patient is on Levaquin and Rocephin. He is also on amiodarone. DIAGNOSTICS: Chest x-ray yesterday revealed 6 cm left hilar opacity with focal consolidation. CT o f the chest showed again consolidation volume loss with air bronchograms involving left upper lobe, particularly involving the apical posterior segment with an area of necrosis approximately 2 cm in d iameter. OBJECTIVE: GENERAL: This is a chronically ill-appearing, fragile, elderly man who is awake, in no distress. HEENT: Head atraumatic, normocephalic. Sclerae anicteric. Buccal mucosa dry. CHEST: Rise symmetrical. Breath sounds diminished to bases. HEART: S1, S2. ABDOMEN: Soft, bowel tones present. EXTREMITIES: Without cyanosis. ASSESSMENT: 1. Pneumonia with necrotic mass, rule out malignancy. 2. Poorly controlled diabetes. 3. Cardiomyopathy with elevated troponin and new onset of atrial fibrillation, remains on amiodaron e. PLAN: The patient remains stable. Plan for thoracentesis. He is being followed by multiple consul tants. We will discontinue Levaquin secondary to interaction with amiodarone, keep him on Rocephin, and await final workup. Dictated By: KEITH MENDOZA CARDIOVASCULAR SONOGRAPHER for BECKI PAREDES/RAISA Conf#: [id number] DID#: [id number]
[2016-04-01] MEDS ORDERED: INSULIN ASPART [NOVOLOG] 3 ML PEN SC ONE (21:00)
[2016-04-01] MEDS: LISINOPRIL 5 MG TAB PO SCH (21:06)
[2016-04-01] MEDS: INSULIN GLARGINE [LANtus] 3 ML PEN SC SCH (21:16)
[2016-04-02] VITALS (13 sets, daily range): BP systolic 111–137; BP diastolic 56–78; PULSE 69–93; RESP 18–20
[2016-04-02] MEDS: ACETAMINOPHEN 325 MG TAB PO PRN ×2 (00:06→21:26)
[2016-04-02] MEDS: ACCUCHECK XX SCH (01:56)
[2016-04-02] MEDS: AMIODARONE 200 MG TAB PO SCH ×4 (06:08→20:20)
[2016-04-02 08:10] LABS: HEMATOCRIT 36.8 % (42.0-52.0); MEAN CORPUSCULAR HEMOGLOBIN 26.7 pg (29.0-33.0); MEAN CORPUSCULAR HGB CONC 32.6 g/dl (32.0-37.0); MEAN CORPUSCULAR VOLUME 81.8 fl (82.0-101.0); MEAN PLATELET VOLUME 7.4 fl (7.4-10.4); PLATELET COUNT 425 10^3/UL (140-440); RED CELL DISTRIBUTION WIDTH 12.3 % (11.5-14.5); UNCORRECTED WBC 20.8 10^3/ul (4.8-10.8); WHITE BLOOD COUNT 20.8 10^3/ul (4.8-10.8)
[2016-04-02 08:15] LABS: CONDITION 1; LH ANALYZER COMMENTS 1; SUSPECT 1
[2016-04-02 08:30] LABS: POTASSIUM 4.1 mmol/L (3.5-5.1)
[2016-04-02 08:33] LABS: CREATININE 0.51 mg/dl (0.61-1.24)
[2016-04-02 08:34] LABS: CALCIUM 8.6 mg/dl (8.4-10.2)
[2016-04-02] MEDS: FAMOTIDINE 20 MG TAB PO SCH ×2 (08:47→20:19)
[2016-04-02] MEDS: METOPROLOL 25 MG TAB PO SCH ×2 (08:48→20:18)
[2016-04-02] MEDS: INSULIN ASPART [NOVOLOG] 3 ML PEN SC SCH ×7 (08:59→20:35)
[2016-04-02] MEDS: ASPIRIN 81 MG TAB PO SCH ×2 (10:07→11:23)
[2016-04-02 10:35] LABS: EOSINOPHILS # 0.2 10^3/ul (0.0-0.5); LYMPHOCYTES # 1.2 10^3/ul (0.8-2.9); MICROCYTOSIS 1+; NEUTROPHIL # 18.3 10^3/ul (1.6-7.5)
[2016-04-02 10:36] LABS: HYPOCHROMASIA 2+
[2016-04-02] MEDS: LISINOPRIL 5 MG TAB PO SCH ×2 (10:53→20:18)
--- NOTE | 2016-04-02 12:39 | CONS ---
Date/Time of Note Date/Time of Note DATE: 04/02/16 TIME: 12:37 Assessment/Plan Assessment/Plan Additional Assessment/Plan Pneumonia Cardiomyopathy with ejection fraction 35% New-onset atrial fibrillation Mildly elevated troponin Diabetes -Patient converted back to sinus rhythm yesterday and recurrent atrial fibrillation this morning once IV amiodarone was stopped. Increase dose of by mouth amiodarone, one dose of Cardizem IV. Patient plan for possible procedures , would hold off on initiation of anticoagulation at the current time. Consultation Date/Type/Reason Admit Date/Time Mar 31, 2016 at 11:48 Type of Consultation: cv 24 HR Interval Summary Free Text/Dictation Shortness of breath is better, cough is better, denies palpitations or chest pain Exam/Review of Systems Vital Signs Vitals Vital Signs Date Time Temp Pulse Resp B/P Pulse Ox O2 Delivery O2 Flow Rate FiO2 04/02/16 12:21 93 04/02/16 12:04 98.0 18 129/70 98 04/02/16 11:17 Nasal Cannula 2.0 Intake and Output 04/01/16 04/01/16 04/02/16 14:59 22:59 06:59 Intake Total 50 ml 1000 ml 680 ml Output Total 1200 ml 1025 ml Balance 50 ml -200 ml -345 ml Exam Constitutional: alert, frail, oriented Head: normocephalic Neck: supple Respiratory: other (course breath sounds bilaterally, rhonchi left lung hussein) Cardiovascular: irregular rhythm, other (S1-S2 heard) Gastrointestinal: bowel sounds, non-tender, soft Extremities: other (no edema) Results Result Diagram: 04/02/16 0740 04/02/16 0740 Results 24 hrs Laboratory Tests Test 04/01/16 17:22 04/01/16 20:20 04/02/16 01:53 04/02/16 07:40 Bedside Glucose 340 H 392 H 264 H Anion Gap 14 Basophils # Basophils % Blood Morphology Comment Blood Urea Nitrogen 21 H Calcium Level 8.6 Carbon Dioxide Level 24 Chloride Level 97 Creatinine 0.51 L Eosinophils # 0.2 Eosinophils % 1.0 Glucose Level 235 H Hematocrit 36.8 L Hemoglobin 12.0 L Hypochromasia 2+ Lymphocytes # 1.2 Lymphocytes % 6.0 L Mean Corpuscular Hemoglobin 26.7 L Mean Corpuscular Hemoglobin Concent 32.6 Mean Corpuscular Volume 81.8 L Mean Platelet Volume 7.4 Microcytosis 1+ Monocytes # 1.0 H Monocytes % 5.0 Neutrophils # 18.3 H Neutrophils % 88.0 H Nucleated Red Blood Cells # Nucleated Red Blood Cells % 0.0 Platelet Count 425 Potassium Level 4.1 Red Blood Count 4.50 L Red Cell Distribution Width 12.3 Sodium Level 131 L White Blood Count 20.8 H Test 04/02/16 07:43 04/02/16 12:21 Bedside Glucose 235 H 256 H Medications Medications Current Medications Ceftriaxone Sodium (Rocephin) 50 ml @ 100 mls/hr Q24H IVPB Last administered on 04/01/16 12:08; Admin Dose 100 MLS/HR; Start 03/31/16 at 12:00 Ondansetron HCl (Zofran Tab) 4 mg Q6H PRN PO NAUSEA AND/OR VOMITING; Start at 12:00 Acetaminophen (Tylenol Tab) 650 mg Q6H PRN PO PAIN LEVEL 1-3 OR FEVER Last administered on 04/02/16 00:06; Admin Dose 650 MG; Start 03/31/16 at 12:00 Acetaminophen (Tylenol Supp) 650 mg Q6H PRN [place] PAIN LEVEL 1-3 OR FEVER; Start 03/31/16 at 12:00 Docusate Sodium (Colace) 100 mg Q12H PRN PO CONSTIPATION; Start 03/31/16 at 12: 00 Bisacodyl (Dulcolax) 5 mg DAILY PRN PO CONSTIPATION; Start 03/31/16 at 12:00 Famotidine (Pepcid) 20 mg Q12 PO Last administered on 04/02/16 08:47; Admin Dose 20 MG; Start 03/31/16 at 21:00 Metoprolol Tartrate (Lopressor) 25 mg BID PO Last administered on 04/02/16 08: 48; Admin Dose 25 MG; Start 03/31/16 at 12:00 Influenza Virus Vaccine (Fluzone) 0.5 ml ONCE ONCE IM* ; Start 04/03/16 at 09:00 ; Stop 04/03/16 at 09:01 Lisinopril (Zestril) 2.5 mg BID PO Last administered on 04/02/16 10:53; Admin Dose 2.5 MG; Start 04/01/16 at 21:00 Carvedilol (Coreg) 6.25 mg BID PO Last administered on 04/02/16 08:48; Admin Dose 6.25 MG; Start 04/01/16 at 21:00 Amiodarone HCl (Cordarone) 200 mg BID PO Last administered on 04/02/16 08:49; Admin Dose 200 MG; Start 04/02/16 at 06:00 Aspirin (Aspirin) 81 mg DAILY PO Last administered on 04/02/16 10:07; Admin Dose 81 MG; Start 04/02/16 at 09:00 Insulin Glargine (Lantus) 15 unit HS SC Last administered on 04/01/16 21:16; Admin Dose 15 UNIT; Start 04/01/16 at 21:00 Diagnostic Test (Pha) (Accucheck) 1 ea 02 XX Last administered on 04/02/16 01: 56; Admin Dose 1 EA; Start 04/02/16 at 02:00 Juan Lowery DO Apr 02, 2016 12:39
[2016-04-02] MEDS: CEFTRIAXONE 1 GM/50 ML (PMX) 50 ML IVPB SCH (12:45)
--- NOTE | 2016-04-02 13:22 | PN ---
DATE: 04/02/2016 SUBJECTIVE: The patient remains stable overnight, no new events. PHYSICAL EXAMINATION: VITAL SIGNS: Temperature 97, pulse 81, blood pressure 131/67, O2 saturation 98% on room air. NECK: Supple. No JVD or lymphadenopathy. CARDIAC: S1, S2, no added sounds or murmurs. CHEST: Diminished air entry bilaterally. ABDOMEN: Soft, nontender. No guarding or rebound. EXTREMITIES: No cyanosis, clubbing, edema. NEUROLOGIC: Grossly intact. No focal deficits. IMPRESSION: 1. Dense multifocal pneumonia, left upper lobe. 2. Cavitating lesion with evidence of mycetoma, left lingula. 3. Left lower lobe pleural effusion. PLAN: 1. Pending ultrasound-guided thoracentesis with pleural fluid studies including cytology. 2. Continue broad-spectrum antibiotic coverage. 3. Sputum studies to rule out AFB. 4. Bronchoscopy if AFB studies are negative. Dictated By: CHRISTOPHER RAMOS/RAISA Conf#: [id number] DID#: [id number]
[2016-04-02] MEDS ORDERED: DILTIAZEM 25 MG INJ IV ONE (13:30)
--- NOTE | 2016-04-02 14:21 | CONS ---
Date/Time of Note Date/Time of Note DATE: 04/02/16 TIME: 14:18 Consult Date/Type/Reason Admit Date/Time Mar 31, 2016 at 11:48 Initial Consult Date Type of Consultation: ID Subjective alert, eating lunch, no fevers, nad Objective Vital Signs Date Time Temp Pulse Resp B/P Pulse Ox O2 Delivery O2 Flow Rate FiO2 04/02/16 12:21 93 04/02/16 12:04 98.0 18 129/70 98 04/02/16 11:17 Nasal Cannula 2.0 Intake and Output 04/01/16 04/01/16 04/02/16 15:00 23:00 07:00 Intake Total 50 ml 1000 ml 680 ml Output Total 1200 ml 1025 ml Balance 50 ml -200 ml -345 ml Results/Medications Result Diagram: 04/02/16 0740 04/02/16 0740 Results 24 hrs Laboratory Tests Test 04/01/16 17:22 04/01/16 20:20 04/02/16 01:53 04/02/16 07:40 Bedside Glucose 340 H 392 H 264 H Anion Gap 14 Basophils # Basophils % Blood Morphology Comment Blood Urea Nitrogen 21 H Calcium Level 8.6 Carbon Dioxide Level 24 Chloride Level 97 Creatinine 0.51 L Eosinophils # 0.2 Eosinophils % 1.0 Glucose Level 235 H Hematocrit 36.8 L Hemoglobin 12.0 L Hypochromasia 2+ Lymphocytes # 1.2 Lymphocytes % 6.0 L Mean Corpuscular Hemoglobin 26.7 L Mean Corpuscular Hemoglobin Concent 32.6 Mean Corpuscular Volume 81.8 L Mean Platelet Volume 7.4 Microcytosis 1+ Monocytes # 1.0 H Monocytes % 5.0 Neutrophils # 18.3 H Neutrophils % 88.0 H Nucleated Red Blood Cells # Nucleated Red Blood Cells % 0.0 Platelet Count 425 Potassium Level 4.1 Red Blood Count 4.50 L Red Cell Distribution Width 12.3 Sodium Level 131 L White Blood Count 20.8 H Test 04/02/16 07:43 04/02/16 12:21 Bedside Glucose 235 H 256 H Medications Current Medications Ceftriaxone Sodium (Rocephin) 50 ml @ 100 mls/hr Q24H IVPB Last administered on 04/02/16t 12:45; Admin Dose 100 MLS/HR; Start 03/31/16 at 12:00 Ondansetron HCl (Zofran Tab) 4 mg Q6H PRN PO NAUSEA AND/OR VOMITING; Start at 12:00 Acetaminophen (Tylenol Tab) 650 mg Q6H PRN PO PAIN LEVEL 1-3 OR FEVER Last administered on 04/02/16 00:06; Admin Dose 650 MG; Start 03/31/16 at 12:00 Acetaminophen (Tylenol Supp) 650 mg Q6H PRN [place] PAIN LEVEL 1-3 OR FEVER; Start 03/31/16 at 12:00 Docusate Sodium (Colace) 100 mg Q12H PRN PO CONSTIPATION; Start 03/31/16 at 12: 00 Bisacodyl (Dulcolax) 5 mg DAILY PRN PO CONSTIPATION; Start 03/31/16 at 12:00 Famotidine (Pepcid) 20 mg Q12 PO Last administered on 04/02/16 08:47; Admin Dose 20 MG; Start 03/31/16 at 21:00 Metoprolol Tartrate (Lopressor) 25 mg BID PO Last administered on 04/02/16 08: 48; Admin Dose 25 MG; Start 03/31/16 at 12:00 Influenza Virus Vaccine (Fluzone) 0.5 ml ONCE ONCE IM* ; Start 04/03/16 at 09:00 ; Stop 04/03/16 at 09:01 Lisinopril (Zestril) 2.5 mg BID PO Last administered on 04/02/16 10:53; Admin Dose 2.5 MG; Start 04/01/16 at 21:00 Carvedilol (Coreg) 6.25 mg BID PO Last administered on 04/02/16 08:48; Admin Dose 6.25 MG; Start 04/01/16 at 21:00 Aspirin (Aspirin) 81 mg DAILY PO Last administered on 04/02/16 10:07; Admin Dose 81 MG; Start 04/02/16 at 09:00 Insulin Glargine (Lantus) 15 unit HS SC Last administered on 04/01/16 21:16; Admin Dose 15 UNIT; Start 04/01/16 at 21:00 Diagnostic Test (Pha) (Accucheck) 1 ea 02 XX Last administered on 04/02/16 01: 56; Admin Dose 1 EA; Start 04/02/16 at 02:00 Amiodarone HCl (Cordarone) 400 mg TID PO Last administered on 04/02/16t 13:52; Admin Dose 400 MG; Start 04/02/16 at 13:30 Assessment/Plan Chief Complaint/Hosp Course ANTIMICROBIALS: Rocephin GENERAL: This is a chronically ill-appearing, fragile, elderly man who is awake , in no distress. HEENT: Head atraumatic, normocephalic. Sclerae anicteric. Buccal mucosa dry. CHEST: Rise symmetrical. Breath sounds diminished to bases. HEART: S1, S2. ABDOMEN: Soft, bowel tones present. EXTREMITIES: Without cyanosis. ASSESSMENT: 1. Pneumonia with cavitary mass and LLL pleural effusion, rule out TB/ malignancy. 2. Poorly controlled diabetes. 3. Cardiomyopathy with elevated troponin and new onset of atrial fibrillation, remains on amiodarone. PLAN: Clinically stable. Plan for thoracentesis. Pending AFB smears, pending cocci serology, f/u pulmonary/card rec-s, continue abx [facility] staff Problems: KEITH MENDOZA NP Apr 02, 2016 14:21
--- NOTE | 2016-04-02 14:35 | PN ---
Date/Time of Note Date/Time of Note DATE: 04/02/16 TIME: 14:33 Assessment/Plan VTE Prophylaxis VTE Prophylaxis Intervention: SCD's Lines/Catheters IV C[facility]ter Type (from [facility]): Peripheral IV Urinary Cath still in place: No Assessment/Plan Chief Complaint/Hosp Course ASSESSMENT AND PLAN: 1. Left lower lobe pneumonia/pleural effusion, ophthalmic aide has been consulted. Continue Rocephin and Levaquin. Status post ultrasound-guided thoracocentesis, follow up cytology, and pleural studies, follow-up AFB 2. Several pulmonary nodules seen in bilateral lung. Pulmonology has been consulted. Follow his recommendation 3. Uncontrolled diabetes mellitus. Patient has been started on low carbohydrate diet, insulin sliding scale, Lantus. 4. Microcytic anemia. Stable 5. Elevated troponin. Cardiology has been consulted. Continue aspirin. lipid panel are in acceptable range. Follow cardiology recommendation. Follow- up 2D echocardiogram. 6. Mild hypernatremia. Follow up electrolytes in a.m. 7. For deep venous thrombosis prophylaxis, on sequential compression devices. 8. For gastrointestinal prophylaxis, on Pepcid. We will continue to monitor patient closely. Further recommendations, management and treatment as per clinical course. Problems: Subjective 24 Hr Interval Summary Free Text/Dictation Patient denies of any chest pain or shortness of breath No nausea vomiting diarrhea Tolerating oral intake Exam/Review of Systems Vital Signs Vitals Vital Signs Date Time Temp Pulse Resp B/P Pulse Ox O2 Delivery O2 Flow Rate FiO2 04/02/16 12:21 93 04/02/16 12:04 98.0 18 129/70 98 04/02/16 11:17 Nasal Cannula 2.0 Intake and Output 04/01/16 04/01/16 04/02/16 15:00 23:00 07:00 Intake Total 50 ml 1000 ml 680 ml Output Total 1200 ml 1025 ml Balance 50 ml -200 ml -345 ml Exam General: The patient is well-developed, Not in acute distress. HEENT: Atraumatic, normocephalic. The pupils are equal and round . Neck: Supple with full range of motion. Chest: Normal expansion of the thorax during inspiration Lungs: Clear to auscultation bilaterally Heart: Normal S1-S2, Regular rhythm and rate. Abdomen: Soft , nontender, nondistended , bowel sounds are present. Extremities: Normal to inspection, no edema no cyanosis Neurologic: Normal mental status,The patient is awake, alert and oriented . Results Result Diagram: 04/02/16 0740 04/02/16 0740 Results 24 hrs Laboratory Tests Test 04/01/16 17:22 04/01/16 20:20 04/02/16 01:53 04/02/16 07:40 Bedside Glucose 340 H 392 H 264 H Anion Gap 14 Basophils # Basophils % Blood Morphology Comment Blood Urea Nitrogen 21 H Calcium Level 8.6 Carbon Dioxide Level 24 Chloride Level 97 Creatinine 0.51 L Eosinophils # 0.2 Eosinophils % 1.0 Glucose Level 235 H Hematocrit 36.8 L Hemoglobin 12.0 L Hypochromasia 2+ Lymphocytes # 1.2 Lymphocytes % 6.0 L Mean Corpuscular Hemoglobin 26.7 L Mean Corpuscular Hemoglobin Concent 32.6 Mean Corpuscular Volume 81.8 L Mean Platelet Volume 7.4 Microcytosis 1+ Monocytes # 1.0 H Monocytes % 5.0 Neutrophils # 18.3 H Neutrophils % 88.0 H Nucleated Red Blood Cells # Nucleated Red Blood Cells % 0.0 Platelet Count 425 Potassium Level 4.1 Red Blood Count 4.50 L Red Cell Distribution Width 12.3 Sodium Level 131 L White Blood Count 20.8 H Test 04/02/16 07:43 04/02/16 12:21 Bedside Glucose 235 H 256 H Medications Medications Current Medications Ceftriaxone Sodium (Rocephin) 50 ml @ 100 mls/hr Q24H IVPB Last administered on 04/02/16 12:45; Admin Dose 100 MLS/HR; Start 03/31/16 at 12:00 Ondansetron HCl (Zofran Tab) 4 mg Q6H PRN PO NAUSEA AND/OR VOMITING; Start at 12:00 Acetaminophen (Tylenol Tab) 650 mg Q6H PRN PO PAIN LEVEL 1-3 OR FEVER Last administered on 04/02/16 00:06; Admin Dose 650 MG; Start 03/31/16 at 12:00 Acetaminophen (Tylenol Supp) 650 mg Q6H PRN [place] PAIN LEVEL 1-3 OR FEVER; Start 03/31/16 at 12:00 Docusate Sodium (Colace) 100 mg Q12H PRN PO CONSTIPATION; Start 03/31/16 at 12: 00 Bisacodyl (Dulcolax) 5 mg DAILY PRN PO CONSTIPATION; Start 03/31/16 at 12:00 Famotidine (Pepcid) 20 mg Q12 PO Last administered on 04/02/16 08:47; Admin Dose 20 MG; Start 03/31/16 at 21:00 Metoprolol Tartrate (Lopressor) 25 mg BID PO Last administered on 04/02/16 08: 48; Admin Dose 25 MG; Start 03/31/16 at 12:00 Influenza Virus Vaccine (Fluzone) 0.5 ml ONCE ONCE IM* ; Start 04/03/16 at 09:00 ; Stop 04/03/16 at 09:01 Lisinopril (Zestril) 2.5 mg BID PO Last administered on 04/02/16 10:53; Admin Dose 2.5 MG; Start 04/01/16 at 21:00 Carvedilol (Coreg) 6.25 mg BID PO Last administered on 04/02/16 08:48; Admin Dose 6.25 MG; Start 04/01/16 at 21:00 Aspirin (Aspirin) 81 mg DAILY PO Last administered on 04/02/16 10:07; Admin Dose 81 MG; Start 04/02/16 at 09:00 Insulin Glargine (Lantus) 15 unit HS SC Last administered on 04/01/16 21:16; Admin Dose 15 UNIT; Start 04/01/16 at 21:00 Diagnostic Test (Pha) (Accucheck) 1 ea 02 XX Last administered on 04/02/16 01: 56; Admin Dose 1 EA; Start 04/02/16 at 02:00 Amiodarone HCl (Cordarone) 400 mg TID PO Last administered on 04/02/16 13:52; Admin Dose 400 MG; Start 04/02/16 at 13:30 DEBBY CARTER MD Apr 02, 2016 14:34
[2016-04-02] MEDS ORDERED: LIDOCAINE 1% (MPF) 5 ML VIAL ONE (16:00)
--- NOTE | 2016-04-02 17:01 | RADRPT ---
PROCEDURE: XR Chest. CLINICAL INDICATION: Shortness of breath. Post left thoracentesis. TECHNIQUE: Single frontal view. COMPARISON: 03/31/2016. FINDINGS: There is a cavitary lesion in the mid left lung as seen on prior chest radiograph and CT scan. Patc hy air space disease is present throughout the lungs with left worse than right, also unchanged. The heart is enlarged. There is shift of the mediastinum to the left. A left pleural effusion is unchanged. There is no pneumothorax. IMPRESSION: 1. No pneumothorax following left thoracentesis. 2. No other change from 03/31/2016. RPTAT: QQ .Hipolito Tian MD, MD Date Time Electronically viewed and signed by .Hipolito Tian MD, MD on 04/02/2016 17:01 .R/
--- NOTE | 2016-04-02 17:20 | RADRPT ---
PROCEDURE: US guided left thoracentesis. CLINICAL INDICATION: Shortness of breath. Left pleural effusion. TECHNIQUE: Prior to the procedure, informed consent was obtained. The risks, benefits, and alternatives were e xplained to the patient or the patient's family, including but not limited to bleeding, infection, p ain, visceral or vascular damage, shock, pneumothorax, chest tube placement, air embolism, and . The patient or the patient's family understood the risks and the alternatives and wished to proce ed with the study. Informed written consent was obtained. A procedural pause was performed. The patient's name, date of , and procedure to be performed were verified. Ultrasound of the left hemithorax was performed in the axial and sagittal planes. A left pleural eff usion is noted. Utilizing ultrasound guidance, optimal location for entry to the pleural cavity was ascertained. The overlying skin was prepped and draped in the usual sterile fashion. Approximately 10 ml of 1% Xylocaine was injected locally for pain control. Using ultrasound guidance, a 5-[place] Yueh catheter was introduced into the left pleural space without difficulty. Fluid was aspirated. COMPARISON: None. FINDINGS: Initial ultrasound demonstrates multiloculated fluid in the left pleural space. Approximately 0.175 liters of serous fluid was aspirated and sent to the laboratory. A large amount of multiloculated f luid remains in the left hemithorax following the left thoracentesis. IMPRESSION: 1. Satisfactory ultrasound-guided left thoracentesis. 2. Multiloculated left pleural effusion. RPTAT: QQ .Hipolito Tian MD, MD Date Time Electronically viewed and signed by .Hipolito Tian MD, on 04/02/2016 17:19 .R/
[2016-04-02 17:36] LABS: FLUID TOTAL PROTEIN 4.5 g/dl; FLUID TYPE THORACENTESIS FLUID
[2016-04-02 17:39] LABS: FLUID GLUCOSE 127 mg/dl; FLUID TYPE THORACENTESIS FLUID
[2016-04-02 17:58] LABS: FLUID LD 2753 U/L
[2016-04-02 18:46] LABS: FLUID APPEARANCE CLOUDY; FLUID LYMPHOCYTES 1 %; FLUID NEUTROPHILS 99 %; FLUID RBC EST 1+; FLUID TYPE PLEURAL; FLUID WBC'S 2645 /cmm
[2016-04-02] MEDS: INSULIN GLARGINE [LANtus] 3 ML PEN SC SCH (20:43)
[2016-04-02 22:49] LABS: TIME 2200
[2016-04-03] VITALS (13 sets, daily range): BP systolic 82–133; BP diastolic 50–64; PULSE 64–88; RESP 15–22
[2016-04-03] MEDS: ACCUCHECK XX SCH (01:43)
[2016-04-03] MEDS ORDERED: INFLUENZA VIRUS VACCINE 0.5 ML SYG IM* ONE (09:00)
[2016-04-03] MEDS: AMIODARONE 200 MG TAB PO SCH ×3 (09:01→22:13)
[2016-04-03] MEDS: LISINOPRIL 5 MG TAB PO SCH (09:02)
[2016-04-03] MEDS: METOPROLOL 25 MG TAB PO SCH (09:02)
[2016-04-03] MEDS: FAMOTIDINE 20 MG TAB PO SCH ×2 (09:02→22:13)
[2016-04-03] MEDS: ASPIRIN 81 MG TAB PO SCH (09:02)
[2016-04-03] MEDS: INSULIN ASPART [NOVOLOG] 3 ML PEN SC SCH ×7 (09:09→21:00)
[2016-04-03 09:21] LABS: BASOPHILS % 0.2 % (0.0-2.0); EOSINOPHILS % 0.1 % (0.0-7.0); HEMATOCRIT 36.7 % (42.0-52.0); LYMPHOCYTES # 0.7 10^3/ul (0.8-2.9); MEAN CORPUSCULAR HEMOGLOBIN 26.4 pg (29.0-33.0); MEAN CORPUSCULAR HGB CONC 32.7 g/dl (32.0-37.0); MEAN CORPUSCULAR VOLUME 80.7 fl (82.0-101.0); MEAN PLATELET VOLUME 7.6 fl (7.4-10.4); MONOCYTE # 1.9 10^3/ul (0.3-0.9); MONOCYTES % 10.4 % (0.0-11.0); NEUTROPHIL # 15.5 10^3/ul (1.6-7.5); NEUTROPHILS % 85.3 % (39.0-77.0); PLATELET COUNT 419 10^3/UL (140-440); RED BLOOD COUNT 4.55 10^6/ul (4.70-6.10); RED CELL DISTRIBUTION WIDTH 12.5 % (11.5-14.5); UNCORRECTED WBC 18.2 10^3/ul (4.8-10.8); WHITE BLOOD COUNT 18.2 10^3/ul (4.8-10.8)
[2016-04-03 09:26] LABS: CONDITION 1; LH ANALYZER COMMENTS 1
[2016-04-03 09:33] LABS: POTASSIUM 3.8 mmol/L (3.5-5.1)
[2016-04-03 09:36] LABS: CREATININE 0.61 mg/dl (0.61-1.24)
[2016-04-03 09:37] LABS: CALCIUM 8.5 mg/dl (8.4-10.2)
[2016-04-03] MEDS: CEFTRIAXONE 1 GM/50 ML (PMX) 50 ML IVPB SCH (12:22)
[2016-04-03] MEDS: ACETAMINOPHEN 325 MG TAB PO PRN (12:22)
[2016-04-03] MEDS: LACTOBACILLUS CHEW TAB PO SCH ×2 (13:39→21:00)
[2016-04-03] MEDS: PIPER-TAZO 3.375 GM IV (PMX) 100 ML IVPB SCH ×2 (13:39→22:14)
--- NOTE | 2016-04-03 13:40 | PN ---
DATE: 04/03/2016 SUBJECTIVE: Chart reviewed. Events noted. Patient underwent an ultrasound-guided thoracentesis . PHYSICAL EXAMINATION: VITAL SIGNS: Blood pressure 103/63, pulse 85, respiration 18, temperature 98. Currently on 2 liter s O2 nasal cannula, saturating 98%. HEENT: Pupils are equal and reactive to light. NECK: Supple, no JVD noted, no cervical adenopathy, no carotid bruits heard. LUNGS: Scattered rhonchi. Decreased breath sounds at the left base. CARDIOVASCULAR: S1, S2 normal. ABDOMEN: Soft, nontender. No organomegaly or masses noted. EXTREMITIES: No clubbing or cyanosis noted. NEUROLOGIC: Awake and alert. LABORATORY DATA: Sodium 132, potassium 3.8, chloride 96, CO2 23, BUN 24, creatinine 0.61, glucose 2 65. WBC 18.2, hemoglobin 12, hematocrit 36.7, platelets 419. Pleural fluid shows a glucose of 127, total protein 4.5, LDH of 2753, is pending. IMPRESSION: 1. Multifocal pneumonia with evidence of cavitation. 2. Left pleural effusion, status post thoracentesis. 3. Pleural effusion is clearly exudative in nature. RECOMMENDATIONS: 1. Check pleural fluid Gram stain and AFB smear. 2. Continue current antibiotics as per ID recommendations. 3. Check all cultures. Dictated By: SERGIO ARORA MD, MA/RAISA Conf#: [id number] DID#: [id number]
[2016-04-03] MEDS ORDERED: POTASSIUM CHLORIDE (SR) 20 MEQ TAB PO STA (13:45)
--- NOTE | 2016-04-03 13:54 | CONS ---
Date/Time of Note Date/Time of Note DATE: 04/03/16 TIME: 13:51 Assessment/Plan Assessment/Plan Additional Assessment/Plan Pneumonia Cardiomyopathy with ejection fraction 35% New-onset atrial fibrillation Mildly elevated troponin Diabetes -Patient with paroxysmal H of fibrillation, currently sinus rhythm, would continue amiodarone, decrease dose of Coreg elicitable given lower blood pressure with holding parameters. Maintain potassium above 4.0 and magnesium above 2.0. If patient not planned for any further procedures, would consider starting anticoagulation if no contraindication. Consultation Date/Type/Reason Admit Date/Time Mar 31, 2016 at 11:48 Type of Consultation: cv 24 HR Interval Summary Free Text/Dictation Patient denies shortness of breath or chest pain or palpitations Exam/Review of Systems Vital Signs Vitals Vital Signs Date Time Temp Pulse Resp B/P Pulse Ox O2 Delivery O2 Flow Rate FiO2 04/03/16 13:33 80 04/03/16 12:22 98.0 18 103/63 98 04/03/16 10:22 Nasal Cannula 2.0 Intake and Output 04/02/16 04/02/16 04/03/16 14:59 22:59 06:59 Intake Total 50 ml 700 ml 300 ml Output Total 1175 ml 300 ml Balance 50 ml -475 ml 0 ml Exam Constitutional: alert, frail, oriented Head: normocephalic Neck: supple Respiratory: other (course breath sounds bilaterally, no wheezing) Cardiovascular: other (S1 and S2 heard), regular rate and rhythm Gastrointestinal: bowel sounds, non-tender, soft Extremities: other (no edema) Results Result Diagram: 04/03/16 0830 04/03/16 0830 Results 24 hrs Laboratory Tests Test 04/02/16 16:00 04/02/16 17:00 04/02/16 20:28 04/02/16 22:00 Body Fluid Appearance CLOUDY Body Fluid Color YELLOW Body Fluid Glucose 127 Body Fluid Lactate Dehydrogenase 2753 Body Fluid Lymphocytes (%) 1 Body Fluid Neutrophils % 99 Body Fluid RBC 1+ Body Fluid Total Protein 4.5 Body Fluid Type THORACENTESIS FLUID Body Fluid Volume 190.0 Body Fluid WBC 2645 Bedside Glucose 234 H 277 H TB Skin Test Administer Date 04/02/16 TB Skin Test Administer Time 2200 TB Skin Test Induration Pending TB Skin Test Injection Site Left Upper Forearm Test 04/03/16 01:35 04/03/16 07:54 04/03/16 08:30 04/03/16 11:52 Bedside Glucose 274 H 278 H 355 H Anion Gap 17 H Basophils # 0.0 Basophils % 0.2 Blood Morphology Comment Blood Urea Nitrogen 24 H Calcium Level 8.5 Carbon Dioxide Level 23 Chloride Level 96 L Creatinine 0.61 Eosinophils # 0.0 Eosinophils % 0.1 Glucose Level 265 H Hematocrit 36.7 L Hemoglobin 12.0 L Lymphocytes # 0.7 L Lymphocytes % 4.0 L Mean Corpuscular Hemoglobin 26.4 L Mean Corpuscular Hemoglobin Concent 32.7 Mean Corpuscular Volume 80.7 L Mean Platelet Volume 7.6 Monocytes # 1.9 H Monocytes % 10.4 Neutrophils # 15.5 H Neutrophils % 85.3 H Nucleated Red Blood Cells # 0.0 Nucleated Red Blood Cells % 0.0 Platelet Count 419 Potassium Level 3.8 Red Blood Count 4.55 L Red Cell Distribution Width 12.5 Sodium Level 132 L White Blood Count 18.2 H Medications Medications Current Medications Ondansetron HCl (Zofran Tab) 4 mg Q6H PRN PO NAUSEA AND/OR VOMITING; Start at 12:00 Acetaminophen (Tylenol Tab) 650 mg Q6H PRN PO PAIN LEVEL 1-3 OR FEVER Last administered on 04/03/16 12:22; Admin Dose 650 MG; Start 03/31/16 at 12:00 Acetaminophen (Tylenol Supp) 650 mg Q6H PRN [place] PAIN LEVEL 1-3 OR FEVER; Start 03/31/16 at 12:00 Docusate Sodium (Colace) 100 mg Q12H PRN PO CONSTIPATION; Start 03/31/16 at 12: 00 Bisacodyl (Dulcolax) 5 mg DAILY PRN PO CONSTIPATION; Start 03/31/16 at 12:00 Famotidine (Pepcid) 20 mg Q12 PO Last administered on 04/03/16 09:02; Admin Dose 20 MG; Start 03/31/16 at 21:00 Metoprolol Tartrate (Lopressor) 25 mg BID PO Last administered on 04/03/16 09: 02; Admin Dose 25 MG; Start 03/31/16 at 12:00 Aspirin (Aspirin) 81 mg DAILY PO Last administered on 04/03/16 09:02; Admin Dose 81 MG; Start 04/02/16 at 09:00 Insulin Glargine (Lantus) 15 unit HS SC Last administered on 04/02/16 20:43; Admin Dose 15 UNIT; Start 04/01/16 at 21:00 Diagnostic Test (Pha) 1 ea 1 ea 02 XX Last administered on 04/03/16 01:43; Admin Dose 1 EA; Start 04/02/16 at 02:00 Piperacillin Sod/ Tazobactam Sod (Zosyn 3.375gm/ 100 ml (Pmx)) 100 ml @ 200 mls /hr Q8 IVPB Last administered on 04/03/16 13:39; Admin Dose 200 MLS/HR; Start 04/03/16 at 14:00 Lactobacillus Acidoph/Bulgaricus (Floranex) 1 tab TID PO Last administered on 13:39; Admin Dose 1 TAB; Start 04/03/16 at 13:00 Amiodarone HCl (Cordarone) 200 mg TID PO ; Start 04/03/16 at 21:00; Status UNV Carvedilol (Coreg) 3.25 mg BID PO ; Start 04/03/16 at 21:00; Status UNV Lisinopril (Zestril) 2.5 mg DAILY PO ; Start 04/04/16 at 09:00; Status UNV Juan Lowery DO Apr 03, 2016 13:54
--- NOTE | 2016-04-03 14:03 | PN ---
DATE: 04/03/2016 SUBJECTIVE: Patient is alert, looks comfortable, no fevers. LABORATORY: WBC today 18.2, neutrophils 85.3, BUN 24, creatinine 0.61. MICROBIOLOGY: Pleural fluid cultures pending. Blood culture on admission was negative. DIAGNOSTICS: Chest x-ray post-thoracentesis revealed no pneumothorax. ANTIMICROBIALS: Rocephin. PHYSICAL EXAMINATION: GENERAL: This is well-developed, elderly man who is awake, in no distress. HEENT: Head atraumatic, normocephalic. Sclerae anicteric. Buccal mucosa dry. NECK: Supple, trachea midline. CHEST: Rise symmetrical. Breath sounds with scattered rhonchi. HEART: S1, S2. ABDOMEN: Soft, bowel tones present. EXTREMITIES: No cyanosis. ASSESSMENT: 1. Multifocal pneumonia with cavitary lesion. 2. Pleural effusion left lower lobe status post thoracentesis with pleural cytology consistent with exudate, cultures pending. 3. Poorly controlled diabetes. 4. Cardiomyopathy. PLAN: The patient remains stable pending final workup, pending sputum for AFB smear, pending cocci serology and final pleural fluid cultures. We will change Rocephin to Zosyn. Await for final cultu res and cytology. Follow pulmonary, cardiology recommendations. Dictated By: KEITH MENDOZA PRINCIPAL ANDROID DEVELOPER for BECKI PAREDES/RAISA Conf#: [id number] DID#: [id number]
--- NOTE | 2016-04-03 14:45 | PN ---
Date/Time of Note Date/Time of Note DATE: 04/03/16 TIME: 14:29 Assessment/Plan VTE Prophylaxis VTE Prophylaxis Intervention: LMWH Lines/Catheters [facility] Saline Lock Urinary Cath still in place: No Assessment/Plan Chief Complaint/Hosp Course Hospitalist Coverage: S- no distress. 4 sputum's sent. O- a fib PE No pallor/ jvd/ adenopathy. cachexia s1s2 irreg; no m r g diminished bs bilat bs+ nt nd no r r g; no edema/ Laurent's A/P 1) Multi- lobar Pneumonia. stable, ro TB/ underlying malignancy. ppd done; 4 afb 's sent. 2) Pl effusion; sp thoracentesis 3) Dm/ metabolic syndrome 4) Cardiomyopathy; EF =35%; ischemic? medical management 5) A Fib; new. start lovenox 6) Left sided Collapse 7) Abn Troponin/ demand ischemia? Problems: Exam/Review of Systems Vital Signs Vitals Vital Signs Date Time Temp Pulse Resp B/P Pulse Ox O2 Delivery O2 Flow Rate FiO2 04/03/16 13:33 80 04/03/16 12:22 98.0 18 103/63 98 04/03/16 10:22 Nasal Cannula 2.0 Intake and Output 04/02/16 04/02/16 04/03/16 15:00 23:00 07:00 Intake Total 50 ml 700 ml 300 ml Output Total 1175 ml 300 ml Balance 50 ml -475 ml 0 ml Results Result Diagram: 04/03/16 0830 04/03/16 0830 Results 24 hrs Laboratory Tests Test 04/02/16 16:00 04/02/16 17:00 04/02/16 20:28 04/02/16 22:00 Body Fluid Appearance CLOUDY Body Fluid Color YELLOW Body Fluid Glucose 127 Body Fluid Lactate Dehydrogenase 2753 Body Fluid Lymphocytes (%) 1 Body Fluid Neutrophils % 99 Body Fluid RBC 1+ Body Fluid Total Protein 4.5 Body Fluid Type THORACENTESIS FLUID Body Fluid Volume 190.0 Body Fluid WBC 2645 Bedside Glucose 234 H 277 H TB Skin Test Administer Date 04/02/16 TB Skin Test Administer Time 2200 TB Skin Test Induration Pending TB Skin Test Injection Site Left Upper Forearm Test 04/03/16 01:35 04/03/16 07:54 04/03/16 08:30 04/03/16 11:52 Bedside Glucose 274 H 278 H 355 H Anion Gap 17 H Basophils # 0.0 Basophils % 0.2 Blood Morphology Comment Blood Urea Nitrogen 24 H Calcium Level 8.5 Carbon Dioxide Level 23 Chloride Level 96 L Creatinine 0.61 Eosinophils # 0.0 Eosinophils % 0.1 Glucose Level 265 H Hematocrit 36.7 L Hemoglobin 12.0 L Lymphocytes # 0.7 L Lymphocytes % 4.0 L Mean Corpuscular Hemoglobin 26.4 L Mean Corpuscular Hemoglobin Concent 32.7 Mean Corpuscular Volume 80.7 L Mean Platelet Volume 7.6 Monocytes # 1.9 H Monocytes % 10.4 Neutrophils # 15.5 H Neutrophils % 85.3 H Nucleated Red Blood Cells # 0.0 Nucleated Red Blood Cells % 0.0 Platelet Count 419 Potassium Level 3.8 Red Blood Count 4.55 L Red Cell Distribution Width 12.5 Sodium Level 132 L White Blood Count 18.2 H Medications Medications Current Medications Ondansetron HCl (Zofran Tab) 4 mg Q6H PRN PO NAUSEA AND/OR VOMITING; Start at 12:00 Acetaminophen (Tylenol Tab) 650 mg Q6H PRN PO PAIN LEVEL 1-3 OR FEVER Last administered on 04/03/16 12:22; Admin Dose 650 MG; Start 03/31/16 at 12:00 Acetaminophen (Tylenol Supp) 650 mg Q6H PRN [place] PAIN LEVEL 1-3 OR FEVER; Start 03/31/16 at 12:00 Docusate Sodium (Colace) 100 mg Q12H PRN PO CONSTIPATION; Start 03/31/16 at 12: 00 Bisacodyl (Dulcolax) 5 mg DAILY PRN PO CONSTIPATION; Start 03/31/16 at 12:00 Metoprolol Tartrate (Lopressor) 25 mg BID PO Last administered on 04/03/16 09: 02; Admin Dose 25 MG; Start 03/31/16 at 12:00 Aspirin (Aspirin) 81 mg DAILY PO Last administered on 04/03/16 09:02; Admin Dose 81 MG; Start 04/02/16 at 09:00 Diagnostic Test (Pha) 1 ea 1 ea 02 XX Last administered on 04/03/16 01:43; Admin Dose 1 EA; Start 04/02/16 at 02:00 Piperacillin Sod/ Tazobactam Sod (Zosyn 3.375gm/ 100 ml (Pmx)) 100 ml @ 200 mls /hr Q8 IVPB Last administered on 04/03/16 13:39; Admin Dose 200 MLS/HR; Start 04/03/16 at 14:00 Lactobacillus Acidoph/Bulgaricus (Floranex) 1 tab TID PO Last administered on 13:39; Admin Dose 1 TAB; Start 04/03/16 at 13:00 Amiodarone HCl (Cordarone) 200 mg TID PO ; Start 04/03/16 at 21:00 Carvedilol (Coreg) 3.125 mg BID PO ; Start 04/03/16 at 21:00 Lisinopril (Zestril) 2.5 mg DAILY PO ; Start 04/04/16 at 09:00 Famotidine (Pepcid) 20 mg QPM PO ; Start 04/03/16 at 21:00 Insulin Glargine (Lantus) 20 unit HS SC ; Start 04/03/16 at 21:00 KATE LINDSEY MD Apr 03, 2016 14:39
[2016-04-03] MEDS ORDERED: IPRATROPIUM (HFA) 12.9 GM INHALER INH PRN (15:00)
[2016-04-03] MEDS ORDERED: GUAIFENESIN/DM 5ML CUP PO PRN (15:00)
[2016-04-03] MEDS: SOD CHLORIDE 0.9% 1,000 ML IV SCH (15:30)
[2016-04-03] MEDS: ENOXAPARIN 100 MG/ML SYG SC SCH ×2 (16:31→22:32)
[2016-04-03] MEDS: INSULIN GLARGINE [LANtus] 3 ML PEN SC SCH (21:00)
[2016-04-03] MEDS: DOCUSATE SODIUM 100 MG CAP PO SCH (22:13)
[2016-04-04] VITALS (13 sets, daily range): BP systolic 103–135; BP diastolic 53–69; PULSE 64–74; RESP 16–20
[2016-04-04] MEDS: SOD CHLORIDE 0.9% 1,000 ML IV SCH ×3 (01:00→13:35)
[2016-04-04] MEDS: ACCUCHECK XX SCH (02:00)
[2016-04-04] MEDS: PIPER-TAZO 3.375 GM IV (PMX) 100 ML IVPB SCH ×3 (06:13→22:04)
[2016-04-04 07:23] LABS: ALBUMIN 2.5 g/dl (3.3-4.9)
[2016-04-04 07:24] LABS: POTASSIUM 3.6 mmol/L (3.5-5.1)
[2016-04-04 07:26] LABS: ALBUMIN/GLOBULIN RATIO 0.8; BILIRUBIN,INDIRECT 0.2 mg/dl (0-1.1); BILIRUBIN,TOTAL 0.2 mg/dl (0.2-1.3); CREATININE 0.55 mg/dl (0.61-1.24); TOTAL PROTEIN 5.6 g/dl (6.1-8.1)
[2016-04-04 07:27] LABS: CALCIUM 8.2 mg/dl (8.4-10.2)
[2016-04-04] MEDS: ACETAMINOPHEN 325 MG TAB PO PRN ×2 (07:37→22:04)
[2016-04-04 08:19] LABS: THYROID STIMULATING HORMONE 2.01 MIU/L (0.465-4.680)
[2016-04-04] MEDS: AMIODARONE 200 MG TAB PO SCH ×3 (08:22→22:04)
[2016-04-04] MEDS: ASPIRIN 81 MG TAB PO SCH (08:22)
[2016-04-04] MEDS: LISINOPRIL 5 MG TAB PO SCH (08:23)
[2016-04-04] MEDS: LACTOBACILLUS CHEW TAB PO SCH ×3 (08:23→22:03)
[2016-04-04] MEDS: INSULIN ASPART [NOVOLOG] 3 ML PEN SC SCH ×7 (08:25→21:00)
[2016-04-04] MEDS: ENOXAPARIN 100 MG/ML SYG SC SCH ×2 (08:35→22:07)
--- NOTE | 2016-04-04 11:29 | PN ---
Date/Time of Note Date/Time of Note DATE: 04/04/16 TIME: 11:27 Assessment/Plan VTE Prophylaxis VTE Prophylaxis Intervention: LMWH Lines/Catheters [facility] Peripheral IV Urinary Cath still in place: No Assessment/Plan Chief Complaint/Hosp Course Hospitalist Coverage: S- 04/03 no distress. 4 sputum's sent. 04/04 no distress. No dyspnea diarrhea. Appetite good. O- a fib; 4L nc/ -2 AFBs are negative. PE No pallor. cachexia s1s2 irreg; no m r g diminished bs bilat bs+ nt nd no r r g; no edema A/P 1) Multi- lobar Pneumonia. stable, ro TB/ underlying malignancy. ppd done; 4 afb 's sent. 2) Pl effusion; sp thoracentesis; pathology pending 3) Dm/ metabolic syndrome; stable improved 4) Cmy; EF =35%; ischemic? medical mngmnt 5) A Fib; new. started lovenox 6) Left sided Collapse 7) Abn Troponin/ demand ischemia? 8) Acute hypoxic respiratory failure; taper O2. May need home O2. 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 Problems: Exam/Review of Systems Vital Signs Vitals Vital Signs Date Time Temp Pulse Resp B/P Pulse Ox O2 Delivery O2 Flow Rate FiO2 04/04/16 11:17 97.9 74 18 115/57 95 04/03/16 20:45 Nasal Cannula 2.0 Intake and Output 04/03/16 04/03/16 04/04/16 15:00 23:00 07:00 Intake Total 1050 ml 1500 ml Output Total 500 ml Balance 550 ml 1500 ml Results Result Diagram: 04/03/16 0830 04/04/16 0514 Results 24 hrs Laboratory Tests Test 04/03/16 11:52 04/03/16 17:01 04/03/16 22:11 04/04/16 05:14 Bedside Glucose 355 H 238 H 189 Acetone Level (Chemistry) NEGATIVE Alanine Aminotransferase (ALT/SGPT) 39 Albumin 2.5 L Albumin/Globulin Ratio 0.80 Alkaline Phosphatase 121 Anion Gap 14 Aspartate Amino Transf (AST/SGOT) 49 H Blood Urea Nitrogen 19 Calcium Level 8.2 L Carbon Dioxide Level 25 Chloride Level 99 Creatinine 0.55 L Direct Bilirubin 0.00 Globulin 3.10 Glucose Level 182 Hemoglobin A1c Indirect Bilirubin 0.2 Lactic Acid Level 1.1 Potassium Level 3.6 Sodium Level 134 L Thyroid Stimulating Hormone (TSH) 2.010 Total Bilirubin 0.2 Total Protein 5.6 L Test 04/04/16 07:35 Bedside Glucose 169 Medications Medications Current Medications Ondansetron HCl (Zofran Tab) 4 mg Q6H PRN PO NAUSEA AND/OR VOMITING; Start at 12:00 Acetaminophen (Tylenol Tab) 650 mg Q6H PRN PO PAIN LEVEL 1-3 OR FEVER Last administered on 04/04/16 07:37; Admin Dose 650 MG; Start 03/31/16 at 12:00 Acetaminophen (Tylenol Supp) 650 mg Q6H PRN [place] PAIN LEVEL 1-3 OR FEVER; Start 03/31/16 at 12:00 Bisacodyl (Dulcolax) 5 mg DAILY PRN PO CONSTIPATION; Start 03/31/16 at 12:00 Aspirin (Aspirin) 81 mg DAILY PO Last administered on 04/04/16 08:22; Admin Dose 81 MG; Start 04/02/16 at 09:00 Diagnostic Test (Pha) 1 ea 1 ea 02 XX Last administered on 04/03/16 01:43; Admin Dose 1 EA; Start 04/02/16 at 02:00 Piperacillin Sod/ Tazobactam Sod (Zosyn 3.375gm/ 100 ml (Pmx)) 100 ml @ 200 mls /hr Q8 IVPB Last administered on 04/04/16 06:13; Admin Dose 200 MLS/HR; Start 04/03/16 at 14:00 Lactobacillus Acidoph/Bulgaricus (Floranex) 1 tab TID PO Last administered on 08:23; Admin Dose 1 TAB; Start 04/03/16 at 13:00 Amiodarone HCl (Cordarone) 200 mg TID PO Last administered on 04/04/16 08:22; Admin Dose 200 MG; Start 04/03/16 at 21:00 Carvedilol (Coreg) 3.125 mg BID PO Last administered on 04/04/16 08:23; Admin Dose 3.125 MG; Start 04/03/16 at 21:00 Lisinopril (Zestril) 2.5 mg DAILY PO Last administered on 04/04/16 08:23; Admin Dose 2.5 MG; Start 04/04/16 at 09:00 Famotidine (Pepcid) 20 mg QPM PO Last administered on 04/03/16 22:13; Admin Dose 20 MG; Start 04/03/16 at 21:00 Insulin Glargine (Lantus) 20 unit HS SC Last administered on 04/03/16 21:00; Admin Dose 20 UNIT; Start 04/03/16 at 21:00 Docusate Sodium (Colace) 100 mg HS PO Last administered on 04/03/16 22:13; Admin Dose 100 MG; Start 04/03/16 at 21:00 Enoxaparin Sodium (Lovenox) 60 mg Q12 SC Last administered on 04/04/16 08:35; Admin Dose 60 MG; Start 04/03/16 at 15:00 Guaifenesin/ Dextromethorphan 10 ml 10 ml Q4H PRN PO COUGH; Start 04/03/16 at 15:00 Sodium Chloride (NS) 1,000 ml @ 100 mls/hr Q10H IV Last administered on 01:00; Admin Dose 100 MLS/HR; Start 04/03/16 at 15:00 Influenza Virus Vaccine (Fluzone) 0.5 ml ONCE ONCE IM* ; Start 04/06/16 at 09:00 ; Stop 04/06/16 at 09:01 KATE LINDSEY MD Apr 04, 2016 11:29
--- NOTE | 2016-04-04 16:30 | PN ---
DATE: 04/04/2016 PULMONARY FOLLOW UP SUBJECTIVE: Chart reviewed. Events noted. Patient currently on 2 liters nasal cannula, saturating 99%. PHYSICAL EXAMINATION: VITAL SIGNS: Blood pressure 115/57, pulse 74, respirations 18, temperature 97.9. HEENT: Pupils are equal and reactive to light. NECK: Supple, no JVD noted, no cervical adenopathy noted, no carotid bruits heard. LUNGS: Decreased breath sounds at the bases. CARDIOVASCULAR: S1, S2 normal. ABDOMEN: Soft, nontender. No organomegaly or masses noted. EXTREMITIES: No clubbing, cyanosis noted. NEUROLOGICAL: Awake. LABORATORY DATA: Sodium 134, potassium 3.6, chloride 99, CO2 of 25, BUN 19, creatinine 0.55, glucos e 182. IMPRESSION: 1. Multifocal pneumonia with evidence of cavitation. 2. Exudative pleural effusion, likely parapneumonic. 3. Status post thoracentesis. RECOMMENDATIONS: 1. Check pleural fluid cultures. 2. Antibiotics per ID. 3. Consultants noted. Dictated By: SERGIO ARORA MD, MA/RAISA Conf#: [id number] DID#: [id number]
[2016-04-04 19:15] LABS: TB-NIL 0.22 IU/mL
[2016-04-04] MEDS: INSULIN GLARGINE [LANtus] 3 ML PEN SC SCH (21:00)
--- NOTE | 2016-04-04 21:22 | PN ---
DATE: 04/04/2016 SUBJECTIVE: Patient is awake, looks comfortable. Denies pain; no fevers. Still has some cough on and off. WBC today 18.2, with H and H 12 and 36.7, platelets 419, neutrophils 85.3, BUN 19, creatin ine 0.55. MICROBIOLOGY: Sputum for AFB smear was negative x2 sets. Pleural fluid with thoracentesis smear fo r AFB was also negative. Pleural fluid cultures came back negative, preliminary. ANTIMICROBIALS: Patient is on Zosyn. Status post Rocephin. PHYSICAL EXAMINATION GENERAL: A fragile, elderly man in no distress. HEENT: Head atraumatic, normocephalic. Sclerae are anicteric. Buccal mucosa dry. NECK: Supple. CHEST: Rise symmetrical. Breath sounds with scattered rhonchi. HEART: S1, S2. ABDOMEN: Soft. Bowel tones present. EXTREMITIES: Without cyanosis. ASSESSMENT 1. Multifocal pneumonia with evidence of cavitation. 2. Exudative pleural effusion, status post thoracentesis. 3. Systemic inflammatory response syndrome with leukocytosis, secondary to above. 4. Cardiomyopathy, status post rapid atrial fibrillation. 5. Diabetes, poorly controlled. PLAN: Patient remains stable. White blood cell count tracing down. She is being seen by multiple consultants. We are awaiting 3rd sputum smear for AFB. Follow pathology report of his pleural flui d. Dictated By: KEITH MENDOZA PLEATING MACHINE OPERATOR for BECKI PAREDES/RAISA Conf#: [id number] DID#: [id number]
[2016-04-04 21:45] LABS: FORTY EIGHT HOUR READING 0 mm (0-9)
[2016-04-04] MEDS: FAMOTIDINE 20 MG TAB PO SCH (22:03)
[2016-04-04] MEDS: DOCUSATE SODIUM 100 MG CAP PO SCH (22:03)
[2016-04-05] VITALS (12 sets, daily range): BP systolic 115–139; BP diastolic 56–68; PULSE 60–95; RESP 16–20
[2016-04-05] MEDS: ACCUCHECK XX SCH (02:00)
[2016-04-05] MEDS: PIPER-TAZO 3.375 GM IV (PMX) 100 ML IVPB SCH ×3 (05:45→22:00)
[2016-04-05] MEDS: SOD CHLORIDE 0.9% 1,000 ML IV SCH (05:45)
[2016-04-05 07:07] LABS: BASOPHILS % 0.4 % (0.0-2.0); EOSINOPHILS # 0.1 10^3/ul (0.0-0.5); EOSINOPHILS % 0.6 % (0.0-7.0); HEMATOCRIT 31.2 % (42.0-52.0); HEMOGLOBIN 10.4 g/dl (14.0-18.0); LYMPHOCYTES # 0.8 10^3/ul (0.8-2.9); LYMPHOCYTES % 6.6 % (15.0-51.0); MEAN CORPUSCULAR HEMOGLOBIN 26.5 pg (29.0-33.0); MEAN CORPUSCULAR HGB CONC 33.2 g/dl (32.0-37.0); MEAN CORPUSCULAR VOLUME 79.7 fl (82.0-101.0); MEAN PLATELET VOLUME 7.6 fl (7.4-10.4); MONOCYTE # 1.7 10^3/ul (0.3-0.9); MONOCYTES % 13.9 % (0.0-11.0); NEUTROPHIL # 9.5 10^3/ul (1.6-7.5); NEUTROPHILS % 78.5 % (39.0-77.0); PLATELET COUNT 449 10^3/UL (140-440); RED BLOOD COUNT 3.92 10^6/ul (4.70-6.10); RED CELL DISTRIBUTION WIDTH 12.6 % (11.5-14.5); UNCORRECTED WBC 12.1 10^3/ul (4.8-10.8); WHITE BLOOD COUNT 12.1 10^3/ul (4.8-10.8)
[2016-04-05 07:10] LABS: CONDITION 1; LH ANALYZER COMMENTS 1
[2016-04-05 07:24] LABS: MAGNESIUM 2.1 mg/dl (1.7-2.5); PHOSPHORUS 3.1 mg/dl (2.5-4.9)
[2016-04-05] MEDS: LACTOBACILLUS CHEW TAB PO SCH ×3 (08:11→20:40)
[2016-04-05] MEDS: AMIODARONE 200 MG TAB PO SCH ×3 (08:11→20:40)
[2016-04-05] MEDS: ASPIRIN 81 MG TAB PO SCH (08:11)
[2016-04-05] MEDS: LISINOPRIL 5 MG TAB PO SCH (08:11)
[2016-04-05] MEDS: ENOXAPARIN 100 MG/ML SYG SC SCH ×2 (08:13→20:57)
[2016-04-05] MEDS: ACETAMINOPHEN 325 MG TAB PO PRN ×2 (08:14→20:40)
[2016-04-05] MEDS: INSULIN ASPART [NOVOLOG] 3 ML PEN SC SCH ×7 (08:18→20:58)
[2016-04-05 08:34] LABS: POTASSIUM 3.5 mmol/L (3.5-5.1)
[2016-04-05 08:36] LABS: CREATININE 0.51 mg/dl (0.61-1.24)
[2016-04-05 08:37] LABS: CALCIUM 7.8 mg/dl (8.4-10.2)
--- NOTE | 2016-04-05 11:42 | PN ---
Date/Time of Note Date/Time of Note DATE: 04/05/16 TIME: 11:40 Assessment/Plan VTE Prophylaxis VTE Prophylaxis Intervention: LMWH Lines/Catheters IV [facility] Type [facility]from [facility] Saline Lock Urinary Cath still in place: No Assessment/Plan Chief Complaint/Hosp Course Hospitalist Coverage: S- 04/03 no distress. 4 sputum's sent. 04/04 no distress. No dyspnea diarrhea. Appetite good. 04/05 were stable. No hemoptysis. Heart rate improved stable O- a fib; off nc? Low-grade fever remains -3 AFBs are negative. 04/01 & 2 from 04/02 PE No pallor s1s2 irreg; no m r g diminished bs bilat bs+ nt nd no r r g; no edema A/P 1) Multi- lobar Pneumonia. stable, ro TB/ malignancy. ppd done; 4 afb's sent. 2) Pl effusion; sp thoracentesis; path pending 3) Dm/ metabolic syndrome; stable improved 4) Cmy; EF =35%; ischemic? medical mngmnt; Medsurg transfer once stable 5) A Fib; new. Rate improved. Started lovenox 6) Left sided Collapse 7) Abn Troponin/ demand ischemia? 8) Resp failure; taper O2. May need home O2. 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 Problems: Exam/Review of Systems Vital Signs Vitals Vital Signs Date Time Temp Pulse Resp B/P Pulse Ox O2 Delivery O2 Flow Rate FiO2 04/05/16 11:00 98.7 71 16 115/56 94 04/03/16 20:45 Nasal Cannula 2.0 Intake and Output 04/04/16 04/04/16 04/05/16 15:00 23:00 07:00 Intake Total 850 ml 1100 ml Output Total 2000 ml Balance -1150 ml 1100 ml Results Result Diagram: 04/05/16 0544 04/05/16 0544 Results 24 hrs Laboratory Tests Test 04/04/16 11:58 04/04/16 17:29 04/04/16 22:00 04/05/16 05:44 Bedside Glucose 305 H 85 127 Anion Gap 12 Basophils # 0.0 Basophils % 0.4 Blood Morphology Comment Blood Urea Nitrogen 13 Calcium Level 7.8 L Carbon Dioxide Level 26 Chloride Level 103 Creatinine 0.51 L Eosinophils # 0.1 Eosinophils % 0.6 Glucose Level 123 # Hematocrit 31.2 L Hemoglobin 10.4 L Lymphocytes # 0.8 Lymphocytes % 6.6 L Magnesium Level 2.1 Mean Corpuscular Hemoglobin 26.5 L Mean Corpuscular Hemoglobin Concent 33.2 Mean Corpuscular Volume 79.7 L Mean Platelet Volume 7.6 Monocytes # 1.7 H Monocytes % 13.9 H Neutrophils # 9.5 H Neutrophils % 78.5 H Nucleated Red Blood Cells # 0.0 Nucleated Red Blood Cells % 0.0 Phosphorus Level 3.1 Platelet Count 449 H Potassium Level 3.5 Red Blood Count 3.92 L Red Cell Distribution Width 12.6 Sodium Level 137 White Blood Count 12.1 #H Test 04/05/16 07:30 Bedside Glucose 142 Medications Medications Current Medications Ondansetron HCl (Zofran Tab) 4 mg Q6H PRN PO NAUSEA AND/OR VOMITING; Start at 12:00 Acetaminophen (Tylenol Tab) 650 mg Q6H PRN PO PAIN LEVEL 1-3 OR FEVER Last administered on 04/05/16 08:14; Admin Dose 650 MG; Start 03/31/16 at 12:00 Acetaminophen (Tylenol Supp) 650 mg Q6H PRN [place] PAIN LEVEL 1-3 OR FEVER; Start 03/31/16 at 12:00 Bisacodyl (Dulcolax) 5 mg DAILY PRN PO CONSTIPATION; Start 03/31/16 at 12:00 Aspirin (Aspirin) 81 mg DAILY PO Last administered on 04/05/16 08:11; Admin Dose 81 MG; Start 04/02/16 at 09:00 Diagnostic Test (Pha) 1 ea 1 ea 02 XX Last administered on 04/03/16 01:43; Admin Dose 1 EA; Start 04/02/16 at 02:00 Piperacillin Sod/ Tazobactam Sod (Zosyn 3.375gm/ 100 ml (Pmx)) 100 ml @ 200 mls /hr Q8 IVPB Last administered on 04/05/16 05:45; Admin Dose 200 MLS/HR; Start 04/03/16 at 14:00 Lactobacillus Acidoph/Bulgaricus (Floranex) 1 tab TID PO Last administered on 08:11; Admin Dose 1 TAB; Start 04/03/16 at 13:00 Amiodarone HCl (Cordarone) 200 mg TID PO Last administered on 04/05/16 08:11; Admin Dose 200 MG; Start 04/03/16 at 21:00 Carvedilol (Coreg) 3.125 mg BID PO Last administered on 04/05/16 08:11; Admin Dose 3.125 MG; Start 04/03/16 at 21:00 Lisinopril (Zestril) 2.5 mg DAILY PO Last administered on 04/05/16 08:11; Admin Dose 2.5 MG; Start 04/04/16 at 09:00 Famotidine (Pepcid) 20 mg QPM PO Last administered on 04/04/16 22:03; Admin Dose 20 MG; Start 04/03/16 at 21:00 Insulin Glargine (Lantus) 20 unit HS SC Last administered on 04/04/16 21:00; Admin Dose 20 UNIT; Start 04/03/16 at 21:00 Docusate Sodium (Colace) 100 mg HS PO Last administered on 04/04/16 22:03; Admin Dose 100 MG; Start 04/03/16 at 21:00 Enoxaparin Sodium (Lovenox) 60 mg Q12 SC Last administered on 04/05/16 08:13; Admin Dose 60 MG; Start 04/03/16 at 15:00 Guaifenesin/ Dextromethorphan 10 ml 10 ml Q4H PRN PO COUGH; Start 04/03/16 at 15:00 Sodium Chloride (NS) 1,000 ml @ 50 mls/hr Q20H IV Last administered on 05:45; Admin Dose 50 MLS/HR; Start 04/03/16 at 15:00 Influenza Virus Vaccine (Fluzone) 0.5 ml ONCE ONCE IM* ; Start 04/06/16 at 09:00 ; Stop 04/06/16 at 09:01 KATE LINDSEY MD Apr 05, 2016 11:42
[2016-04-05] MEDS: POTASSIUM CHLORIDE 20 MEQ POWDER FOR ORAL SOLN PO SCH ×2 (12:45→20:42)
--- NOTE | 2016-04-05 17:55 | PN ---
DATE: 04/05/2016 PULMONARY FOLLOWUP SUBJECTIVE: Chart reviewed. Events noted. The patient saturating 94%. The patient does not have any hemoptysis today. Two sputum smears are negative for AFB. Also pleural fluid smear is negative for AFB. PHYSICAL EXAMINATION: VITAL SIGNS: Blood pressure 115/56, pulse 71, respirations 16, temperature 98.7. HEENT: Pupils are equal and reactive to light. NECK: Supple. No JVD noted, no cervical adenopathy, no carotid bruits heard. LUNGS: Fair breath sounds bilaterally. CARDIOVASCULAR: S1, S2 normal. ABDOMEN: Soft, nontender. No organomegaly or masses noted. EXTREMITIES: No clubbing or cyanosis noted. NEUROLOGICAL: Awake. LABORATORY DATA: WBC 12.1, hemoglobin 10.4, hematocrit 31.2, platelets 449. Sodium 137, potassium 3.5, chloride 103, CO2 of 26, BUN 13, creatinine 0.51, glucose 123. IMPRESSION: 1. Multifocal pneumonia with evidence of cavitation. 2. Exudative pleural effusion, likely parapneumonic. 3. Status post thoracentesis. 4. So far, AFB smears are negative. RECOMMENDATIONS: 1. Continue current antibiotics per ID. 2. Check third sputum for AFB. 3. Consultants noted. Dictated By: SERGIO ARORA MD, MA/RAISA Conf#: [id number] DID#: [id number]
--- NOTE | 2016-04-05 18:42 | PN ---
DATE: SUBJECTIVE: No acute changes. The patient is alert, looks comfortable, no fevers. VITAL SIGNS: Stable. LABORATORY DATA: WBC today 12.1 with platelets 449, neutrophils 78.5. BUN 13, creatinine 0.51. MICROBIOLOGY: Sputum for AFB smear pending third set. The first 2 were negative. Thoracentesis fl uid culture had been negative. ANTIMICROBIALS: The patient is on Zosyn. PHYSICAL EXAMINATION: GENERAL: Well-developed, fragile, elderly man who is awake, in no distress. HEENT: Head atraumatic, normocephalic. Sclerae anicteric. Buccal mucosa dry. NECK: Supple. CHEST: Rise symmetrical. Breath sounds diminished to bases with scattered crackles. HEART: S1, S2. ABDOMEN: Soft, bowel sounds present. EXTREMITIES: No cyanosis. ASSESSMENT: 1. Multifocal cavitating pneumonia. 2. Exudative pleural effusion, status post thoracentesis. 3. Systemic inflammatory response syndrome secondary to above. 4. Cardiomyopathy status post rapid atrial fibrillation, on amiodarone. 5. Poorly controlled diabetes. PLAN: The patient remains stable. WBC tracing down. He is on appropriate antimicrobials, pending third sputum for AFB smear. Follow cardiology and pulmonary recommendations. Dictated By: KEITH MENDOZA AGRONOMY RESEARCH MANAGER for BECKI MORLEY MD NI/NTS Conf#: [id number] DID#: [id number] CC: DEBBY CARTER MD;*EndCC*
[2016-04-05] MEDS: DOCUSATE SODIUM 100 MG CAP PO SCH (20:40)
[2016-04-05] MEDS: FAMOTIDINE 20 MG TAB PO SCH (20:41)
[2016-04-05] MEDS: INSULIN GLARGINE [LANtus] 3 ML PEN SC SCH (20:57)
[2016-04-05 21:11] LABS: SEVENTY TWO HOUR READING 0 mm (0-9)
[2016-04-06] VITALS (11 sets, daily range): BP systolic 142–155; BP diastolic 64–76; PULSE 62–82; RESP 14–20
[2016-04-06] MEDS: ACCUCHECK XX SCH (01:17)
[2016-04-06] MEDS: PIPER-TAZO 3.375 GM IV (PMX) 100 ML IVPB SCH ×3 (05:13→21:23)
[2016-04-06 07:41] LABS: BASOPHILS % 0.2 % (0.0-2.0); EOSINOPHILS # 0.1 10^3/ul (0.0-0.5); EOSINOPHILS % 0.6 % (0.0-7.0); HEMATOCRIT 32.5 % (42.0-52.0); HEMOGLOBIN 10.8 g/dl (14.0-18.0); LYMPHOCYTES # 0.7 10^3/ul (0.8-2.9); LYMPHOCYTES % 6.4 % (15.0-51.0); MEAN CORPUSCULAR HEMOGLOBIN 26.9 pg (29.0-33.0); MEAN CORPUSCULAR HGB CONC 33.3 g/dl (32.0-37.0); MEAN CORPUSCULAR VOLUME 80.8 fl (82.0-101.0); MEAN PLATELET VOLUME 7.1 fl (7.4-10.4); MONOCYTE # 1.8 10^3/ul (0.3-0.9); MONOCYTES % 17.2 % (0.0-11.0); NEUTROPHILS % 75.6 % (39.0-77.0); PLATELET COUNT 500 10^3/UL (140-440); RED BLOOD COUNT 4.02 10^6/ul (4.70-6.10); RED CELL DISTRIBUTION WIDTH 12.7 % (11.5-14.5); UNCORRECTED WBC 10.5 10^3/ul (4.8-10.8); WHITE BLOOD COUNT 10.5 10^3/ul (4.8-10.8)
[2016-04-06 07:42] LABS: CONDITION 1; LH ANALYZER COMMENTS 1
[2016-04-06 07:43] LABS: POTASSIUM 3.7 mmol/L (3.5-5.1)
[2016-04-06 07:45] LABS: CREATININE 0.47 mg/dl (0.61-1.24)
[2016-04-06 07:46] LABS: PHOSPHORUS 3.1 mg/dl (2.5-4.9)
[2016-04-06] MEDS ORDERED: INFLUENZA VIRUS VACCINE 0.5 ML SYG IM* ONE (09:00)
[2016-04-06] MEDS: INSULIN ASPART [NOVOLOG] 3 ML PEN SC SCH ×7 (10:14→21:38)
[2016-04-06] MEDS: LACTOBACILLUS CHEW TAB PO SCH ×3 (10:16→21:23)
[2016-04-06] MEDS: ENOXAPARIN 100 MG/ML SYG SC SCH ×2 (10:16→21:39)
[2016-04-06] MEDS: ASPIRIN 81 MG TAB PO SCH (10:17)
[2016-04-06] MEDS: LISINOPRIL 5 MG TAB PO SCH (10:18)
[2016-04-06] MEDS: AMIODARONE 200 MG TAB PO SCH ×3 (10:18→21:23)
[2016-04-06] MEDS: POTASSIUM CHLORIDE 20 MEQ POWDER FOR ORAL SOLN PO SCH ×2 (10:19→21:22)
--- NOTE | 2016-04-06 12:40 | PN ---
Date/Time of Note Date/Time of Note DATE: 04/06/16 TIME: 12:27 Assessment/Plan VTE Prophylaxis VTE Prophylaxis Intervention: LMWH Lines/Catheters IV C[facility]ter Type (from [facility]): Saline Lock Urinary Cath still in place: No Assessment/Plan Assessment/Plan 1. Multilobar cavitating pneumonia, sputum negative for AFB, on Zosyn, follow up with ID 2. Exudative pleural effusion, status post thoracentesis, follow up with culture 3. Systemic inflammatory response syndrome secondary to above. 4. Cardiomyopathy status post rapid atrial fibrillation, on amiodarone. 5. Diabetes mellitus, adjust medications 6. Microcytic anemia, iron panel. Subjective 24 Hr Interval Summary Free Text/Dictation afebrile, no shortness of breath Exam/Review of Systems Vital Signs Vitals Vital Signs Date Time Temp Pulse Resp B/P Pulse Ox O2 Delivery O2 Flow Rate FiO2 04/06/16 12:12 82 04/06/16 07:31 99.1 20 152/76 99 04/03/16 20:45 Nasal Cannula 2.0 Intake and Output 04/05/16 04/05/16 04/06/16 15:00 23:00 07:00 Intake Total 950 ml 500 ml Output Total 1100 ml 1050 ml Balance -150 ml -550 ml Exam Constitutional: alert, oriented, well developed Psych: nl mood/affect, no complaints Head: atraumatic, normocephalic Eyes: EOMI, PERRL, nl conjunctiva, nl lids, nl sclera ENMT: nl external ears & nose, nl lips & teeth Neck: non-tender, supple Respiratory: clear to auscultation, normal air movement Cardiovascular: No S3, No S4, No bruits, No diastolic murmur, No edema, No gallop, No irregular rhythm, No jugular venous distention (JVD), No murmurs/ extra sounds, No nl pulses, No rub, No systolic murmur Gastrointestinal: nl liver, spleen, non-tender, soft, No ascites, No bowel sounds, No distended, No firm, No hepatomegaly, No mass , No rebound or guarding, No splenomegaly, No surgical scars, No tender Musculoskeletal: nl extremities to inspection Extremities: normal pulses, other, No calf tenderness, No clubbing, No cyanosis, No edema, No palpable cord, No pitting pedal edema, No tenderness 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8 L Mean Platelet Volume 7.1 L Monocytes # 1.8 H Monocytes % 17.2 H Neutrophils # 8.0 H Neutrophils % 75.6 Nucleated Red Blood Cells # 0.0 Nucleated Red Blood Cells % 0.0 Platelet Count 500 H Red Blood Count 4.02 L Red Cell Distribution Width 12.7 White Blood Count 10.5 Test 04/06/16 06:42 04/06/16 07:30 04/06/16 11:42 Anion Gap 11 Blood Urea Nitrogen 9 Calcium Level 8.0 L Carbon Dioxide Level 28 Chloride Level 102 Creatinine 0.47 L Glucose Level 144 Phosphorus Level 3.1 Potassium Level 3.7 Sodium Level 137 Bedside Glucose 147 269 H Medications Medications Current Medications Ondansetron HCl (Zofran Tab) 4 mg Q6H PRN PO NAUSEA AND/OR VOMITING; Start at 12:00 Acetaminophen (Tylenol Tab) 650 mg Q6H PRN PO PAIN LEVEL 1-3 OR FEVER Last administered on 04/05/16 20:40; Admin Dose 650 MG; Start 03/31/16 at 12:00 Acetaminophen (Tylenol Supp) 650 mg Q6H PRN [place] PAIN LEVEL 1-3 OR FEVER; Start 03/31/16 at 12:00 Bisacodyl (Dulcolax) 5 mg DAILY PRN PO CONSTIPATION; Start 03/31/16 at 12:00 Aspirin (Aspirin) 81 mg DAILY PO Last administered on 04/06/16 10:17; Admin Dose 81 MG; Start 04/02/16 at 09:00 Diagnostic Test (Pha) 1 ea 1 ea 02 XX Last administered on 04/03/16 01:43; Admin Dose 1 EA; Start 04/02/16 at 02:00 Piperacillin Sod/ Tazobactam Sod (Zosyn 3.375gm/ 100 ml (Pmx)) 100 ml @ 200 mls /hr Q8 IVPB Last administered on 04/06/16 05:13; Admin Dose 200 MLS/HR; Start 04/03/16 at 14:00 Lactobacillus Acidoph/Bulgaricus (Floranex) 1 tab TID PO Last administered on 10:16; Admin Dose 1 TAB; Start 04/03/16 at 13:00 Amiodarone HCl (Cordarone) 200 mg TID PO Last administered on 04/06/16 10:18; Admin Dose 200 MG; Start 04/03/16 at 21:00 Carvedilol (Coreg) 3.125 mg BID PO Last administered on 04/06/16 10:19; Admin Dose 3.125 MG; Start 04/03/16 at 21:00 Lisinopril (Zestril) 2.5 mg DAILY PO Last administered on 04/06/16 10:18; Admin Dose 2.5 MG; Start 04/04/16 at 09:00 Famotidine (Pepcid) 20 mg QPM PO Last administered on 04/05/16 20:41; Admin Dose 20 MG; Start 04/03/16 at 21:00 Insulin Glargine (Lantus) 20 unit HS SC Last administered on 04/05/16 20:57; Admin Dose 20 UNIT; Start 04/03/16 at 21:00 Docusate Sodium (Colace) 100 mg HS PO Last administered on 04/05/16 20:40; Admin Dose 100 MG; Start 04/03/16 at 21:00 Enoxaparin Sodium (Lovenox) 60 mg Q12 SC Last administered on 04/06/16 10:16; Admin Dose 60 MG; Start 04/03/16 at 15:00 Guaifenesin/ Dextromethorphan (Robitussin Dm Liquid Cup) 10 ml Q4H PRN PO COUGH ; Start 04/03/16 at 15:00 Potassium Chloride (Potassium Chloride Pwd/Soln) 40 meq BID PO Last administered on 04/06/16t 10:19; Admin Dose 40 MEQ; Start 04/05/16 at 12:30 JUANY SERRATO MD Apr 06, 2016 12:37
--- NOTE | 2016-04-06 13:15 | CONS ---
Date/Time of Note Date/Time of Note DATE: 04/06/16 TIME: 13:08 Assessment/Plan Assessment/Plan Additional Assessment/Plan Assessment/plan; 1. Patient admitted with left lower lobe pneumonia community-acquired. 2. Status post left thoracentesis. Minimal fluid could be removed. AFB stains are negative so far. 3. Initial presentation and findings are not consistent with Mycobacterium tuberculosis infection. 4. There is a little more clinical and radiological improvement. With improving leukocytosis. Continue current antibiotic treatment as well as other medications. Consultation Date/Type/Reason Admit Date/Time Mar 31, 2016 at 11:48 Initial Consult Date Type of Consultation: cv 24 HR Interval Summary Free Text/Dictation Patient is doing much better. Planes of scant cough. Denies any sputum production. Denies any hemoptysis. Denies any fever. General examination; elderly, awake alert currently in no distress. Exam/Review of Systems Vital Signs Vitals Vital Signs Date Time Temp Pulse Resp B/P Pulse Ox O2 Delivery O2 Flow Rate FiO2 04/06/16 12:12 82 04/06/16 07:31 99.1 20 152/76 99 04/03/16 20:45 Nasal Cannula 2.0 Intake and Output 04/05/16 04/05/16 04/06/16 15:00 23:00 07:00 Intake Total 950 ml 500 ml Output Total 1100 ml 1050 ml Balance -150 ml -550 ml Exam HEENT examination; supple neck, no lymphadenopathy, pharynx is clear, patient is multiple missing teeth and a few remaining carious teeth. Both are small bilaterally. Bilateral ptrygion are present. There are no neck bruits. No lymphadenopathy. Chest examination; right lung is clear to auscultation with minimally decreased breath sounds left lower lobe. S1-S2 audible no murmurs. Regular rate and rhythm. Abdomen examination; soft, nontender, no organomegaly, bowel sounds audible. Nondistended. Extremity examination; no peripheral edema. Pulses 1+ bilaterally. There is no clubbing. 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 Results Result Diagram: 04/06/16 0640 04/06/16 0642 Results 24 hrs Laboratory Tests Test 04/05/16 17:44 04/05/16 20:04 04/06/16 06:10 04/06/16 06:40 Bedside Glucose 172 147 Magnesium Level 2.0 Basophils # 0.0 Basophils % 0.2 Blood Morphology Comment Eosinophils # 0.1 Eosinophils % 0.6 Hematocrit 32.5 L Hemoglobin 10.8 L Lymphocytes # 0.7 L Lymphocytes % 6.4 L Mean Corpuscular Hemoglobin 26.9 L Mean Corpuscular Hemoglobin Concent 33.3 Mean Corpuscular Volume 80.8 L Mean Platelet Volume 7.1 L Monocytes # 1.8 H Monocytes % 17.2 H Neutrophils # 8.0 H Neutrophils % 75.6 Nucleated Red Blood Cells # 0.0 Nucleated Red Blood Cells % 0.0 Platelet Count 500 H Red Blood Count 4.02 L Red Cell Distribution Width 12.7 White Blood Count 10.5 Test 04/06/16 06:42 04/06/16 07:30 04/06/16 11:42 Anion Gap 11 Blood Urea Nitrogen 9 Calcium Level 8.0 L Carbon Dioxide Level 28 Chloride Level 102 Creatinine 0.47 L Glucose Level 144 Phosphorus Level 3.1 Potassium Level 3.7 Sodium Level 137 Bedside Glucose 147 269 H Medications Medications Current Medications Ondansetron HCl (Zofran Tab) 4 mg Q6H PRN PO NAUSEA AND/OR VOMITING; Start at 12:00 Acetaminophen (Tylenol Tab) 650 mg Q6H PRN PO PAIN LEVEL 1-3 OR FEVER Last administered on 04/05/16 20:40; Admin Dose 650 MG; Start 03/31/16 at 12:00 Acetaminophen (Tylenol Supp) 650 mg Q6H PRN [place] PAIN LEVEL 1-3 OR FEVER; Start 03/31/16 at 12:00 Bisacodyl (Dulcolax) 5 mg DAILY PRN PO CONSTIPATION; Start 03/31/16 at 12:00 Aspirin (Aspirin) 81 mg DAILY PO Last administered on 04/06/16 10:17; Admin Dose 81 MG; Start 04/02/16 at 09:00 Diagnostic Test (Pha) 1 ea 1 ea 02 XX Last administered on 04/03/16 01:43; Admin Dose 1 EA; Start 04/02/16 at 02:00 Piperacillin Sod/ Tazobactam Sod (Zosyn 3.375gm/ 100 ml (Pmx)) 100 ml @ 200 mls /hr Q8 IVPB Last administered on 04/06/16 05:13; Admin Dose 200 MLS/HR; Start 04/03/16 at 14:00 Lactobacillus Acidoph/Bulgaricus (Floranex) 1 tab TID PO Last administered on 10:16; Admin Dose 1 TAB; Start 04/03/16 at 13:00 Amiodarone HCl (Cordarone) 200 mg TID PO Last administered on 04/06/16 10:18; Admin Dose 200 MG; Start 04/03/16 at 21:00 Carvedilol (Coreg) 3.125 mg BID PO Last administered on 04/06/16 10:19; Admin Dose 3.125 MG; Start 04/03/16 at 21:00 Lisinopril (Zestril) 2.5 mg DAILY PO Last administered on 04/06/16 10:18; Admin Dose 2.5 MG; Start 04/04/16 at 09:00 Famotidine (Pepcid) 20 mg QPM PO Last administered on 04/05/16 20:41; Admin Dose 20 MG; Start 04/03/16 at 21:00 Docusate Sodium (Colace) 100 mg HS PO Last administered on 04/05/16 20:40; Admin Dose 100 MG; Start 04/03/16 at 21:00 Enoxaparin Sodium (Lovenox) 60 mg Q12 SC Last administered on 04/06/16 10:16; Admin Dose 60 MG; Start 04/03/16 at 15:00 Guaifenesin/ Dextromethorphan (Robitussin Dm Liquid Cup) 10 ml Q4H PRN PO COUGH ; Start 04/03/16 at 15:00 Potassium Chloride (Potassium Chloride Pwd/Soln) 40 meq BID PO Last administered on 04/06/16 10:19; Admin Dose 40 MEQ; Start 04/05/16 at 12:30 Insulin Glargine (Lantus) 24 unit HS SC ; Start 04/06/16 at 21:00 JULIAN CABRAL Apr 06, 2016 13:15
--- NOTE | 2016-04-06 14:03 | CONS ---
Date/Time of Note Date/Time of Note DATE: 04/06/16 TIME: 14:01 Assessment/Plan Assessment/Plan Additional Assessment/Plan Pneumonia Cardiomyopathy with ejection fraction 35% New-onset atrial fibrillation Mildly elevated troponin Diabetes -Patient remains in sinus rhythm, increased dose of Coreg and if blood pressure remained stable, increase DIAN inhibitor in the next one to 2 days. Decrease amiodarone. Patient currently on Lovenox for anticoagulation, if not plan for any further procedures, would transition to oral anticoagulants. Consultation Date/Type/Reason Admit Date/Time Mar 31, 2016 at 11:48 Type of Consultation: cv 24 HR Interval Summary Free Text/Dictation Shortness of breath is better, cough is improving, denies palpitations or chest pain Exam/Review of Systems Vital Signs Vitals Vital Signs Date Time Temp Pulse Resp B/P Pulse Ox O2 Delivery O2 Flow Rate FiO2 04/06/16 12:12 82 04/06/16 07:31 99.1 20 152/76 99 04/03/16 20:45 Nasal Cannula 2.0 Intake and Output 04/05/16 04/05/16 04/06/16 15:00 23:00 07:00 Intake Total 950 ml 500 ml Output Total 1100 ml 1050 ml Balance -150 ml -550 ml Exam No apparent distress Constitutional: alert, frail, oriented Head: normocephalic Neck: supple Respiratory: other (course breath sounds bilaterally with scattered rhonchi in left lung field) Cardiovascular: other (S1 and S2 heard), regular rate and rhythm Gastrointestinal: bowel sounds, non-tender, soft Extremities: other (no edema) Results Result Diagram: 04/06/16 0640 04/06/16 0642 Results 24 hrs Laboratory Tests Test 04/05/16 17:44 04/05/16 20:04 04/06/16 06:10 04/06/16 06:40 Bedside Glucose 172 147 Magnesium Level 2.0 Basophils # 0.0 Basophils % 0.2 Blood Morphology Comment Eosinophils # 0.1 Eosinophils % 0.6 Hematocrit 32.5 L Hemoglobin 10.8 L Lymphocytes # 0.7 L Lymphocytes % 6.4 L Mean Corpuscular Hemoglobin 26.9 L Mean Corpuscular Hemoglobin Concent 33.3 Mean Corpuscular Volume 80.8 L Mean Platelet Volume 7.1 L Monocytes # 1.8 H Monocytes % 17.2 H Neutrophils # 8.0 H Neutrophils % 75.6 Nucleated Red Blood Cells # 0.0 Nucleated Red Blood Cells % 0.0 Platelet Count 500 H Red Blood Count 4.02 L Red Cell Distribution Width 12.7 White Blood Count 10.5 Test 04/06/16 06:42 04/06/16 07:30 04/06/16 11:42 Anion Gap 11 Blood Urea Nitrogen 9 Calcium Level 8.0 L Carbon Dioxide Level 28 Chloride Level 102 Creatinine 0.47 L Glucose Level 144 Phosphorus Level 3.1 Potassium Level 3.7 Sodium Level 137 Bedside Glucose 147 269 H Medications Medications Current Medications Ondansetron HCl (Zofran Tab) 4 mg Q6H PRN PO NAUSEA AND/OR VOMITING; Start at 12:00 Acetaminophen (Tylenol Tab) 650 mg Q6H PRN PO PAIN LEVEL 1-3 OR FEVER Last administered on 04/05/16 20:40; Admin Dose 650 MG; Start 03/31/16 at 12:00 Acetaminophen (Tylenol Supp) 650 mg Q6H PRN [place] PAIN LEVEL 1-3 OR FEVER; Start 03/31/16 at 12:00 Bisacodyl (Dulcolax) 5 mg DAILY PRN PO CONSTIPATION; Start 03/31/16 at 12:00 Aspirin (Aspirin) 81 mg DAILY PO Last administered on 04/06/16 10:17; Admin Dose 81 MG; Start 04/02/16 at 09:00 Diagnostic Test (Pha) 1 ea 1 ea 02 XX Last administered on 04/03/16 01:43; Admin Dose 1 EA; Start 04/02/16 at 02:00 Piperacillin Sod/ Tazobactam Sod (Zosyn 3.375gm/ 100 ml (Pmx)) 100 ml @ 200 mls /hr Q8 IVPB Last administered on 04/06/16 13:14; Admin Dose 200 MLS/HR; Start 04/03/16 at 14:00 Lactobacillus Acidoph/Bulgaricus (Floranex) 1 tab TID PO Last administered on 13:14; Admin Dose 1 TAB; Start 04/03/16 at 13:00 Amiodarone HCl (Cordarone) 200 mg TID PO Last administered on 04/06/16 13:16; Admin Dose 200 MG; Start 04/03/16 at 21:00 Carvedilol (Coreg) 3.125 mg BID PO Last administered on 04/06/16 10:19; Admin Dose 3.125 MG; Start 04/03/16 at 21:00 Lisinopril (Zestril) 2.5 mg DAILY PO Last administered on 04/06/16 10:18; Admin Dose 2.5 MG; Start 04/04/16 at 09:00 Famotidine (Pepcid) 20 mg QPM PO Last administered on 04/05/16 20:41; Admin Dose 20 MG; Start 04/03/16 at 21:00 Docusate Sodium (Colace) 100 mg HS PO Last administered on 04/05/16 20:40; Admin Dose 100 MG; Start 04/03/16 at 21:00 Enoxaparin Sodium (Lovenox) 60 mg Q12 SC Last administered on 04/06/16 10:16; Admin Dose 60 MG; Start 04/03/16 at 15:00 Guaifenesin/ Dextromethorphan (Robitussin Dm Liquid Cup) 10 ml Q4H PRN PO COUGH ; Start 04/03/16 at 15:00 Potassium Chloride (Potassium Chloride Pwd/Soln) 40 meq BID PO Last administered on 04/06/16 10:19; Admin Dose 40 MEQ; Start 04/05/16 at 12:30 Insulin Glargine (Lantus) 24 unit HS SC ; Start 04/06/16 at 21:00 Juan Lowery DO Apr 06, 2016 14:03
--- NOTE | 2016-04-06 17:09 | CONS ---
Date/Time of Note Date/Time of Note DATE: 04/06/16 TIME: 17:06 Assessment/Plan Assessment/Plan Chief Complaint/Hosp Course No events, sleeping, looks comfortable, no fevers, nad MICROBIOLOGY: Sputum for AFB smear 4 sets negative. Thoracentesis fluid culture negative. ANTIMICROBIALS: Zosyn. PHYSICAL EXAMINATION: GENERAL: Well-developed, fragile, elderly man who is awake, in no distress. HEENT: Head atraumatic, normocephalic. Sclerae anicteric. Buccal mucosa dry. NECK: Supple. CHEST: Rise symmetrical. Breath sounds diminished to bases with scattered crackles. HEART: S1, S2. ABDOMEN: Soft, bowel sounds present. EXTREMITIES: No cyanosis. ASSESSMENT: 1. Multifocal cavitating pneumonia===> AFB smear neg 3 sets 2. Exudative pleural effusion, status post thoracentesis. 3. Systemic inflammatory response syndrome secondary to above. 4. Cardiomyopathy status post rapid atrial fibrillation, on amiodarone. 5. Poorly controlled diabetes. PLAN: The patient remains stable. Continue abx, f/u pulmonary/card rec-s, ok dc isolation. DW staff Problems: Consultation Date/Type/Reason Admit Date/Time Mar 31, 2016 at 11:48 Type of Consultation: id Exam/Review of Systems Vital Signs Vitals Vital Signs Date Time Temp Pulse Resp B/P Pulse Ox O2 Delivery O2 Flow Rate FiO2 04/06/16 16:34 72 04/06/16 15:29 97.9 20 142/64 98 04/06/16 12:30 Room Air 04/03/16 20:45 2.0 Intake and Output 04/05/16 04/05/16 04/06/16 15:00 23:00 07:00 Intake Total 950 ml 500 ml Output Total 1100 ml 1050 ml Balance -150 ml -550 ml Results Result Diagram: 04/06/16 0640 04/06/16 0642 Results 24 hrs Laboratory Tests Test 04/05/16 17:44 04/05/16 20:04 04/06/16 06:10 04/06/16 06:40 Bedside Glucose 172 147 Magnesium Level 2.0 Basophils # 0.0 Basophils % 0.2 Blood Morphology Comment Eosinophils # 0.1 Eosinophils % 0.6 Hematocrit 32.5 L Hemoglobin 10.8 L Lymphocytes # 0.7 L Lymphocytes % 6.4 L Mean Corpuscular Hemoglobin 26.9 L Mean Corpuscular Hemoglobin Concent 33.3 Mean Corpuscular Volume 80.8 L Mean Platelet Volume 7.1 L Monocytes # 1.8 H Monocytes % 17.2 H Neutrophils # 8.0 H Neutrophils % 75.6 Nucleated Red Blood Cells # 0.0 Nucleated Red Blood Cells % 0.0 Platelet Count 500 H Red Blood Count 4.02 L Red Cell Distribution Width 12.7 White Blood Count 10.5 Test 04/06/16 06:42 04/06/16 07:30 04/06/16 11:42 Anion Gap 11 Blood Urea Nitrogen 9 Calcium Level 8.0 L Carbon Dioxide Level 28 Chloride Level 102 Creatinine 0.47 L Glucose Level 144 Phosphorus Level 3.1 Potassium Level 3.7 Sodium Level 137 Bedside Glucose 147 269 H Medications Medications Current Medications Ondansetron HCl (Zofran Tab) 4 mg Q6H PRN PO NAUSEA AND/OR VOMITING; Start at 12:00 Acetaminophen (Tylenol Tab) 650 mg Q6H PRN PO PAIN LEVEL 1-3 OR FEVER Last administered on 04/05/16 20:40; Admin Dose 650 MG; Start 03/31/16 at 12:00 Acetaminophen (Tylenol Supp) 650 mg Q6H PRN [place] PAIN LEVEL 1-3 OR FEVER; Start 03/31/16 at 12:00 Bisacodyl (Dulcolax) 5 mg DAILY PRN PO CONSTIPATION; Start 03/31/16 at 12:00 Aspirin (Aspirin) 81 mg DAILY PO Last administered on 04/06/16 10:17; Admin Dose 81 MG; Start 04/02/16 at 09:00 Diagnostic Test (Pha) 1 ea 1 ea 02 XX Last administered on 04/03/16 01:43; Admin Dose 1 EA; Start 04/02/16 at 02:00 Piperacillin Sod/ Tazobactam Sod (Zosyn 3.375gm/ 100 ml (Pmx)) 100 ml @ 200 mls /hr Q8 IVPB Last administered on 04/06/16 13:14; Admin Dose 200 MLS/HR; Start 04/03/16 at 14:00 Lactobacillus Acidoph/Bulgaricus (Floranex) 1 tab TID PO Last administered on 13:14; Admin Dose 1 TAB; Start 04/03/16 at 13:00 Lisinopril (Zestril) 2.5 mg DAILY PO Last administered on 04/06/16 10:18; Admin Dose 2.5 MG; Start 04/04/16 at 09:00 Famotidine (Pepcid) 20 mg QPM PO Last administered on 04/05/16 20:41; Admin Dose 20 MG; Start 04/03/16 at 21:00 Docusate Sodium (Colace) 100 mg HS PO Last administered on 04/05/16 20:40; Admin Dose 100 MG; Start 04/03/16 at 21:00 Enoxaparin Sodium (Lovenox) 60 mg Q12 SC Last administered on 04/06/16 10:16; Admin Dose 60 MG; Start 04/03/16 at 15:00 Guaifenesin/ Dextromethorphan (Robitussin Dm Liquid Cup) 10 ml Q4H PRN PO COUGH ; Start 04/03/16 at 15:00 Potassium Chloride (Potassium Chloride Pwd/Soln) 40 meq BID PO Last administered on 04/06/16 10:19; Admin Dose 40 MEQ; Start 04/05/16 at 12:30 Insulin Glargine (Lantus) 24 unit HS SC ; Start 04/06/16 at 21:00 Amiodarone HCl (Cordarone) 200 mg BID PO ; Start 04/06/16 at 21:00 Carvedilol (Coreg) 6.25 mg BID PO ; Start 04/06/16 at 21:00 KEITH MENDOZA NP Apr 06, 2016 17:09
[2016-04-06] MEDS: DOCUSATE SODIUM 100 MG CAP PO SCH (21:22)
[2016-04-06] MEDS: FAMOTIDINE 20 MG TAB PO SCH (21:23)
[2016-04-06] MEDS: INSULIN GLARGINE [LANtus] 3 ML PEN SC SCH (21:38)
--- NOTE | 2016-04-06 22:03 | PN ---
DATE: 04/04/2016 CARDIOLOGY FOLLOWUP SUBJECTIVE: The patient remains in sinus rhythm, no paroxysmal atrial fibrillation. Denies any carlos alber[address] pain or pressure. Still complains of cough. MEDICATIONS: Reviewed. PHYSICAL EXAMINATION: VITAL SIGNS: Temperature 98, heart rate of 68, blood pressure 132/60, respiration rate 18, saturati ng 97%. HEENT: Normocephalic, atraumatic. Pupils are equal. CARDIOVASCULAR: Regular rate and rhythm. PULMONARY: No wheezes or rhonchi. GASTROINTESTINAL: Soft. EXTREMITIES: Trivial edema. NEUROLOGIC: Awake and alert. PSYCHIATRIC: Calm and pleasant. LABORATORY: Glucose of 85. ASSESSMENT AND PLAN: 1. Paroxysmal atrial fibrillation, currently in sinus rhythm. 2. Pneumonia, rule out pulmonary embolism protocol. 3. Pleural effusion with thoracentesis. 4. Diabetes. 5. History of cardiomyopathy, on medical therapy. RECOMMENDATIONS: Antibiotic as per Internal Medicine. Continue with lisinopril and amiodarone. Co ntinue with the carvedilol. Will continue with the aspirin. Dictated By: SYED VILLALOBOS MD AV/RAISA Conf#: [id number] DID#: [id number] CC: KATE LINDSEY MD;*EndCC*
[2016-04-07] VITALS (12 sets, daily range): BP systolic 112–134; BP diastolic 56–72; PULSE 65–72; RESP 18–20
[2016-04-07] MEDS: ACCUCHECK XX SCH (02:00)
[2016-04-07] MEDS: PIPER-TAZO 3.375 GM IV (PMX) 100 ML IVPB SCH (06:03)
[2016-04-07 07:21] LABS: BASOPHILS % 0.1 % (0.0-2.0); EOSINOPHILS % 0.5 % (0.0-7.0); HEMATOCRIT 31.4 % (42.0-52.0); HEMOGLOBIN 10.4 g/dl (14.0-18.0); LYMPHOCYTES # 0.7 10^3/ul (0.8-2.9); LYMPHOCYTES % 7.6 % (15.0-51.0); MEAN CORPUSCULAR HEMOGLOBIN 26.7 pg (29.0-33.0); MEAN CORPUSCULAR HGB CONC 33.1 g/dl (32.0-37.0); MEAN CORPUSCULAR VOLUME 80.8 fl (82.0-101.0); MEAN PLATELET VOLUME 6.4 fl (7.4-10.4); MONOCYTE # 1.6 10^3/ul (0.3-0.9); MONOCYTES % 16.7 % (0.0-11.0); NEUTROPHIL # 7.1 10^3/ul (1.6-7.5); NEUTROPHILS % 75.1 % (39.0-77.0); PLATELET COUNT 540 10^3/UL (140-440); RED BLOOD COUNT 3.89 10^6/ul (4.70-6.10); RED CELL DISTRIBUTION WIDTH 12.2 % (11.5-14.5); UNCORRECTED WBC 9.4 10^3/ul (4.8-10.8); WHITE BLOOD COUNT 9.4 10^3/ul (4.8-10.8)
[2016-04-07 07:37] LABS: IRON 18 ug/dl (35-150)
[2016-04-07 07:47] LABS: TOTAL IRON BINDING CAPACITY 173 ug/dl (241-421)
[2016-04-07 07:51] LABS: CONDITION 1; LH ANALYZER COMMENTS 1
[2016-04-07 08:06] LABS: THYROID STIMULATING HORMONE 2.96 MIU/L (0.465-4.680)
[2016-04-07] MEDS: LACTOBACILLUS CHEW TAB PO SCH ×3 (08:33→20:54)
[2016-04-07] MEDS: POTASSIUM CHLORIDE 20 MEQ POWDER FOR ORAL SOLN PO SCH ×2 (08:34→20:53)
[2016-04-07] MEDS: ASPIRIN 81 MG TAB PO SCH (08:34)
[2016-04-07] MEDS: AMIODARONE 200 MG TAB PO SCH ×2 (08:36→20:56)
[2016-04-07] MEDS: LISINOPRIL 5 MG TAB PO SCH (08:41)
[2016-04-07] MEDS: INSULIN ASPART [NOVOLOG] 3 ML PEN SC SCH ×7 (08:47→21:09)
[2016-04-07] MEDS: ENOXAPARIN 100 MG/ML SYG SC SCH ×2 (08:50→21:08)
--- NOTE | 2016-04-07 10:31 | CONS ---
Date/Time of Note Date/Time of Note DATE: 04/07/16 TIME: 10:28 Assessment/Plan Assessment/Plan Additional Assessment/Plan Assessment/recommendations; 1. Patient admitted with cavitary pneumonia involving left lower lobe status post thoracentesis with significant clinical improvement. 2. Diabetes stains have been negative 3. 3. Clinical presentation compatible with community acquired pneumonia with significant clinical improvement. Next 4. Underlying COPD currently stable. 5. Proximal atrial fibrillation currently in sinus rhythm. 6. Cardiomyopathy clinically stable and is well compensated. Next 7. Stable diabetes. Continue current treatment for now consider discharged on combination of oral Levaquin with doxycycline at least for 10 day. Patient will need to have a follow-up chest x-ray in about 2 weeks time on outpatient basis. Infectious disease entry level sales consultant is following the patient I would defer definitive antibiotic microbial outpatient regimen to him . Consultation Date/Type/Reason Admit Date/Time Mar 31, 2016 at 11:48 Type of Consultation: id [id number] HR Interval Summary Free Text/Dictation Patient condition is stable. He is doing very well. Denies any shortness of breath. Denies any cough, chest pain, fever, chills. Denies any sputum production, hemoptysis. General examination; elderly awake alert currently in no distress. Exam/Review of Systems Vital Signs Vitals Vital Signs Date Time Temp Pulse Resp B/P Pulse Ox O2 Delivery O2 Flow Rate FiO2 04/07/16 08:14 69 04/07/16 07:08 99.1 19 126/64 94 04/06/16 12:30 Room Air 04/03/16 20:45 2.0 Intake and Output 04/06/16 04/06/16 04/07/16 15:00 23:00 07:00 Intake Total 1640 ml 1000 ml Output Total 2600 ml 1400 ml Balance -960 ml -400 ml Exam HEENT examination; supple neck, no JVD, no lymphadenopathy. Pharynx is clear. Patient does have multiple missing teeth. Chest examination; diminished breath sounds left lower lobe rest of the lung hussein are clear but also revealed diminished breath sounds. S1-S2 audible no murmurs regular rhythm. Abdomen examination; soft, nontender, no organomegaly. Bowel sounds audible. Extremity examination; no peripheral edema. Pulses 1+ bilaterally. 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 Results Result Diagram: 04/07/16 0701 04/06/16 0642 Results 24 hrs Laboratory Tests Test 1/23/17 11:42 04/06/16 17:14 04/06/16 21:21 04/07/16 06:02 Bedside Glucose 269 H 186 261 H 256 H Test 04/07/16 07:01 04/07/16 07:50 04/07/16 08:22 Basophils # 0.0 Basophils % 0.1 Blood Morphology Comment Eosinophils # 0.0 Eosinophils % 0.5 Ferritin 619.0 H Hematocrit 31.4 L Hemoglobin 10.4 L Iron Level 18 L Lymphocytes # 0.7 L Lymphocytes % 7.6 L Mean Corpuscular Hemoglobin 26.7 L Mean Corpuscular Hemoglobin Concent 33.1 Mean Corpuscular Volume 80.8 L Mean Platelet Volume 6.4 L Monocytes # 1.6 H Monocytes % 16.7 H Neutrophils # 7.1 Neutrophils % 75.1 Nucleated Red Blood Cells # 0.0 Nucleated Red Blood Cells % 0.0 Percent Iron Saturation 10 L Platelet Count 540 H Red Blood Count 3.89 L Red Cell Distribution Width 12.2 Thyroid Stimulating Hormone (TSH) 2.960 Total Iron Binding Capacity 173 L White Blood Count 9.4 Lab Scanned Report REFERENCE LAB Bedside Glucose 180 Medications Medications Current Medications Ondansetron HCl (Zofran Tab) 4 mg Q6H PRN PO NAUSEA AND/OR VOMITING; Start at 12:00 Acetaminophen (Tylenol Tab) 650 mg Q6H PRN PO PAIN LEVEL 1-3 OR FEVER Last administered on 04/05/16 20:40; Admin Dose 650 MG; Start 03/31/16 at 12:00 Acetaminophen (Tylenol Supp) 650 mg Q6H PRN [place] PAIN LEVEL 1-3 OR FEVER; Start 03/31/16 at 12:00 Bisacodyl (Dulcolax) 5 mg DAILY PRN PO CONSTIPATION; Start 03/31/16 at 12:00 Aspirin (Aspirin) 81 mg DAILY PO Last administered on 04/07/16 08:34; Admin Dose 81 MG; Start 04/02/16 at 09:00 Diagnostic Test (Pha) 1 ea 1 ea 02 XX Last administered on 04/03/16 01:43; Admin Dose 1 EA; Start 04/02/16 at 02:00 Piperacillin Sod/ Tazobactam Sod (Zosyn 3.375gm/ 100 ml (Pmx)) 100 ml @ 200 mls /hr Q8 IVPB Last administered on 04/07/16 06:03; Admin Dose 200 MLS/HR; Start 04/03/16 at 14:00 Lactobacillus Acidoph/Bulgaricus (Floranex) 1 tab TID PO Last administered on 08:33; Admin Dose 1 TAB; Start 04/03/16 at 13:00 Lisinopril (Zestril) 2.5 mg DAILY PO Last administered on 04/07/16 08:41; Admin Dose 2.5 MG; Start 04/04/16 at 09:00 Famotidine (Pepcid) 20 mg QPM PO Last administered on 04/06/16 21:23; Admin Dose 20 MG; Start 04/03/16 at 21:00 Docusate Sodium (Colace) 100 mg HS PO Last administered on 04/06/16 21:22; Admin Dose 100 MG; Start 04/03/16 at 21:00 Enoxaparin Sodium (Lovenox) 60 mg Q12 SC Last administered on 04/07/16 08:50; Admin Dose 60 MG; Start 04/03/16 at 15:00 Guaifenesin/ Dextromethorphan (Robitussin Dm Liquid Cup) 10 ml Q4H PRN PO COUGH ; Start 04/03/16 at 15:00 Potassium Chloride (Potassium Chloride Pwd/Soln) 40 meq BID PO Last administered on 04/07/16 08:34; Admin Dose 40 MEQ; Start 04/05/16 at 12:30 Insulin Glargine (Lantus) 24 unit HS SC Last administered on 04/06/16 21:38; Admin Dose 24 UNIT; Start 04/06/16 at 21:00 Amiodarone HCl (Cordarone) 200 mg BID PO Last administered on 04/07/16 08:36; Admin Dose 200 MG; Start 04/06/16 at 21:00 Carvedilol (Coreg) 6.25 mg BID PO Last administered on 04/07/16 08:36; Admin Dose 6.25 MG; Start 04/06/16 at 21:00 JULIAN CABRAL Apr 07, 2016 10:31
--- NOTE | 2016-04-07 12:48 | PN ---
Date/Time of Note Date/Time of Note DATE: 04/07/16 TIME: 12:43 Assessment/Plan VTE Prophylaxis VTE Prophylaxis Intervention: LMWH Lines/Catheters [facility] Saline Lock Urinary Cath still in place: No Assessment/Plan Assessment/Plan 1. Multilobar cavitating pneumonia, sputum negative for AFB, on Zosyn, follow up with ID, repeat CXR 2. Exudative pleural effusion, status post thoracentesis, follow up with culture 3. Systemic inflammatory response syndrome secondary to above. 4. Cardiomyopathy status post rapid atrial fibrillation, on amiodarone. 5. Diabetes mellitus, adjust medications 6. Microcytic anemia, stable Subjective 24 Hr Interval Summary Free Text/Dictation some cough, afebrile Exam/Review of Systems Vital Signs Vitals Vital Signs Date Time Temp Pulse Resp B/P Pulse Ox O2 Delivery O2 Flow Rate FiO2 04/07/16 12:09 65 04/07/16 11:22 98.6 19 112/56 96 04/06/16 12:30 Room Air 04/03/16 20:45 2.0 Intake and Output 04/06/16 04/06/16 04/07/16 15:00 23:00 07:00 Intake Total 1640 ml 1000 ml Output Total 2600 ml 1400 ml Balance -960 ml -400 ml Exam Constitutional: alert, oriented, well developed Psych: nl mood/affect, no complaints Head: atraumatic, normocephalic Eyes: EOMI, PERRL, nl conjunctiva, nl lids, nl sclera ENMT: mucosa pink and moist, nl external ears & nose, nl lips & teeth, nl nasal mucosa & septum Neck: non-tender, supple Respiratory: normal air movement, other (some rhonchi) Cardiovascular: nl pulses, regular rate and rhythm, No S3, No S4, No bruits, No diastolic murmur, No edema, No gallop, No irregular rhythm, No jugular venous distention (JVD), No murmurs/extra sounds, No rub, No systolic murmur Gastrointestinal: nl liver, spleen, soft, No ascites, No bowel sounds, No distended, No firm, No hepatomegaly, No mass , No non-tender, No rebound or guarding, No splenomegaly, No surgical scars, No tender Musculoskeletal: nl extremities to inspection Neurological: 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 MACHINE OPERATOR II-XII intact, nl mental status, nl speech, nl strength Skin: nl turgor, rash or lesions Lymph: nl lymph nodes Results Result Diagram: 04/07/16 0701 04/06/16 0642 Results 24 hrs Laboratory Tests Test 04/06/16 17:14 04/06/16 21:21 04/07/16 06:02 04/07/16 07:01 Bedside Glucose 186 261 H 256 H Basophils # 0.0 Basophils % 0.1 Blood Morphology Comment Eosinophils # 0.0 Eosinophils % 0.5 Ferritin 619.0 H Hematocrit 31.4 L Hemoglobin 10.4 L Iron Level 18 L Lymphocytes # 0.7 L Lymphocytes % 7.6 L Mean Corpuscular Hemoglobin 26.7 L Mean Corpuscular Hemoglobin Concent 33.1 Mean Corpuscular Volume 80.8 L Mean Platelet Volume 6.4 L Monocytes # 1.6 H Monocytes % 16.7 H Neutrophils # 7.1 Neutrophils % 75.1 Nucleated Red Blood Cells # 0.0 Nucleated Red Blood Cells % 0.0 Percent Iron Saturation 10 L Platelet Count 540 H Red Blood Count 3.89 L Red Cell Distribution Width 12.2 Thyroid Stimulating Hormone (TSH) 2.960 Total Iron Binding Capacity 173 L White Blood Count 9.4 Test 04/07/16 07:50 04/07/16 08:22 04/07/16 12:00 Lab Scanned Report REFERENCE LAB Bedside Glucose 180 208 Medications Medications Current Medications Ondansetron HCl (Zofran Tab) 4 mg Q6H PRN PO NAUSEA AND/OR VOMITING; Start at 12:00 Acetaminophen (Tylenol Tab) 650 mg Q6H PRN PO PAIN LEVEL 1-3 OR FEVER Last administered on 04/05/16 20:40; Admin Dose 650 MG; Start 03/31/16 at 12:00 Acetaminophen (Tylenol Supp) 650 mg Q6H PRN [place] PAIN LEVEL 1-3 OR FEVER; Start 03/31/16 at 12:00 Bisacodyl (Dulcolax) 5 mg DAILY PRN PO CONSTIPATION; Start 03/31/16 at 12:00 Aspirin (Aspirin) 81 mg DAILY PO Last administered on 04/07/16 08:34; Admin Dose 81 MG; Start 04/02/16 at 09:00 Diagnostic Test (Pha) 1 ea 1 ea 02 XX Last administered on 04/03/16 01:43; Admin Dose 1 EA; Start 04/02/16 at 02:00 Piperacillin Sod/ Tazobactam Sod (Zosyn 3.375gm/ 100 ml (Pmx)) 100 ml @ 200 mls /hr Q8 IVPB Last administered on 04/07/16 06:03; Admin Dose 200 MLS/HR; Start 04/03/16 at 14:00 Lactobacillus Acidoph/Bulgaricus (Floranex) 1 tab TID PO Last administered on 08:33; Admin Dose 1 TAB; Start 04/03/16 at 13:00 Lisinopril (Zestril) 2.5 mg DAILY PO Last administered on 04/07/16 08:41; Admin Dose 2.5 MG; Start 04/04/16 at 09:00 Famotidine (Pepcid) 20 mg QPM PO Last administered on 04/06/16 21:23; Admin Dose 20 MG; Start 04/03/16 at 21:00 Docusate Sodium (Colace) 100 mg HS PO Last administered on 04/06/16 21:22; Admin Dose 100 MG; Start 04/03/16 at 21:00 Enoxaparin Sodium (Lovenox) 60 mg Q12 SC Last administered on 04/07/16 08:50; Admin Dose 60 MG; Start 04/03/16 at 15:00 Guaifenesin/ Dextromethorphan (Robitussin Dm Liquid Cup) 10 ml Q4H PRN PO COUGH ; Start 04/03/16 at 15:00 Potassium Chloride (Potassium Chloride Pwd/Soln) 40 meq BID PO Last administered on 04/07/16 08:34; Admin Dose 40 MEQ; Start 04/05/16 at 12:30 Insulin Glargine (Lantus) 24 unit HS SC Last administered on 04/06/16 21:38; Admin Dose 24 UNIT; Start 04/06/16 at 21:00 Amiodarone HCl (Cordarone) 200 mg BID PO Last administered on 04/07/16 08:36; Admin Dose 200 MG; Start 04/06/16 at 21:00 Carvedilol (Coreg) 6.25 mg BID PO Last administered on 04/07/16 08:36; Admin Dose 6.25 MG; Start 04/06/16 at 21:00 JUANY SERRATO MD Apr 07, 2016 12:48
--- NOTE | 2016-04-07 13:51 | PN ---
Date/Time of Note Date/Time of Note DATE: 04/07/16 TIME: 13:51 Assessment/Plan VTE Prophylaxis VTE Prophylaxis Intervention: SCD's Lines/Catheters [facility] Saline Lock Urinary Cath still in place: No Assessment/Plan Assessment/Plan Pneumonia Cardiomyopathy with ejection fraction 35% New-onset atrial fibrillation Mildly elevated troponin Diabetes -Patient remains in sinus rhythm, increased dose of Coreg and if blood pressure remained stable, increase DIAN inhibitor in the next one to 2 days. Decrease amiodarone . Patient currently on Lovenox for anticoagulation, if not plan for any further procedures, would transition to oral anticoagulants. Subjective 24 Hr Interval Summary Free Text/Dictation THe patinet withno change Exam/Review of Systems Vital Signs Vitals Vital Signs Date Time Temp Pulse Resp B/P Pulse Ox O2 Delivery O2 Flow Rate FiO2 04/07/16 12:09 65 04/07/16 11:22 98.6 19 112/56 96 04/06/16 12:30 Room Air 04/03/16 20:45 2.0 Intake and Output 04/06/16 04/06/16 04/07/16 15:00 23:00 07:00 Intake Total 1640 ml 1000 ml Output Total 2600 ml 1400 ml Balance -960 ml -400 ml Results Result Diagram: 04/07/16 0701 04/06/16 0642 Results 24 hrs Laboratory Tests Test 04/06/16 17:14 04/06/16 21:21 04/07/16 06:02 04/07/16 07:01 Bedside Glucose 186 261 H 256 H Basophils # 0.0 Basophils % 0.1 Blood Morphology Comment Eosinophils # 0.0 Eosinophils % 0.5 Ferritin 619.0 H Hematocrit 31.4 L Hemoglobin 10.4 L Iron Level 18 L Lymphocytes # 0.7 L Lymphocytes % 7.6 L Mean Corpuscular Hemoglobin 26.7 L Mean Corpuscular Hemoglobin Concent 33.1 Mean Corpuscular Volume 80.8 L Mean Platelet Volume 6.4 L Monocytes # 1.6 H Monocytes % 16.7 H Neutrophils # 7.1 Neutrophils % 75.1 Nucleated Red Blood Cells # 0.0 Nucleated Red Blood Cells % 0.0 Percent Iron Saturation 10 L Platelet Count 540 H Red Blood Count 3.89 L Red Cell Distribution Width 12.2 Thyroid Stimulating Hormone (TSH) 2.960 Total Iron Binding Capacity 173 L White Blood Count 9.4 Test 04/07/16 07:50 04/07/16 08:22 04/07/16 12:00 Lab Scanned Report REFERENCE LAB Bedside Glucose 180 208 Medications Medications Current Medications Ondansetron HCl (Zofran Tab) 4 mg Q6H PRN PO NAUSEA AND/OR VOMITING; Start at 12:00 Acetaminophen (Tylenol Tab) 650 mg Q6H PRN PO PAIN LEVEL 1-3 OR FEVER Last administered on 04/05/16 20:40; Admin Dose 650 MG; Start 03/31/16 at 12:00 Acetaminophen (Tylenol Supp) 650 mg Q6H PRN [place] PAIN LEVEL 1-3 OR FEVER; Start 03/31/16 at 12:00 Bisacodyl (Dulcolax) 5 mg DAILY PRN PO CONSTIPATION; Start 03/31/16 at 12:00 Aspirin (Aspirin) 81 mg DAILY PO Last administered on 04/07/16 08:34; Admin Dose 81 MG; Start 04/02/16 at 09:00 Diagnostic Test (Pha) 1 ea 1 ea 02 XX Last administered on 04/03/16 01:43; Admin Dose 1 EA; Start 04/02/16 at 02:00 Piperacillin Sod/ Tazobactam Sod (Zosyn 3.375gm/ 100 ml (Pmx)) 100 ml @ 200 mls /hr Q8 IVPB Last administered on 04/07/16 06:03; Admin Dose 200 MLS/HR; Start 04/03/16 at 14:00 Lactobacillus Acidoph/Bulgaricus (Floranex) 1 tab TID PO Last administered on 08:33; Admin Dose 1 TAB; Start 04/03/16 at 13:00 Lisinopril (Zestril) 2.5 mg DAILY PO Last administered on 04/07/16 08:41; Admin Dose 2.5 MG; Start 04/04/16 at 09:00 Famotidine (Pepcid) 20 mg QPM PO Last administered on 04/06/16 21:23; Admin Dose 20 MG; Start 04/03/16 at 21:00 Docusate Sodium (Colace) 100 mg HS PO Last administered on 04/06/16 21:22; Admin Dose 100 MG; Start 04/03/16 at 21:00 Enoxaparin Sodium (Lovenox) 60 mg Q12 SC Last administered on 04/07/16 08:50; Admin Dose 60 MG; Start 04/03/16 at 15:00 Guaifenesin/ Dextromethorphan (Robitussin Dm Liquid Cup) 10 ml Q4H PRN PO COUGH ; Start 04/03/16 at 15:00 Potassium Chloride (Potassium Chloride Pwd/Soln) 40 meq BID PO Last administered on 04/07/16 08:34; Admin Dose 40 MEQ; Start 04/05/16 at 12:30 Insulin Glargine (Lantus) 24 unit HS SC Last administered on 04/06/16 21:38; Admin Dose 24 UNIT; Start 04/06/16 at 21:00 Amiodarone HCl (Cordarone) 200 mg BID PO Last administered on 04/07/16 08:36; Admin Dose 200 MG; Start 04/06/16 at 21:00 Carvedilol (Coreg) 6.25 mg BID PO Last administered on 04/07/16 08:36; Admin Dose 6.25 MG; Start 04/06/16 at 21:00 GENE KELLEY MD Apr 07, 2016 13:51
--- NOTE | 2016-04-07 14:04 | CONS ---
Date/Time of Note Date/Time of Note DATE: 04/07/16 TIME: 14:00 Assessment/Plan Assessment/Plan Chief Complaint/Hosp Course Subjective: Awake, looks comfortable no fevers, nad MICROBIOLOGY: Sputum for AFB smear 4 sets negative. Thoracentesis fluid culture negative. ANTIMICROBIALS: Zosyn. PHYSICAL EXAMINATION: GENERAL: Well-developed, fragile, elderly man who is awake, in no distress. HEENT: Head atraumatic, normocephalic. Sclerae anicteric. Buccal mucosa dry. NECK: Supple. CHEST: Rise symmetrical. Breath sounds diminished to bases with scattered crackles. HEART: S1, S2. ABDOMEN: Soft, bowel sounds present. EXTREMITIES: No cyanosis. ASSESSMENT: 1. Multifocal cavitating pneumonia===> AFB smear neg 3 sets 2. Exudative pleural effusion, status post thoracentesis. 3. Systemic inflammatory response syndrome secondary to above. 4. Cardiomyopathy status post rapid atrial fibrillation, on amiodarone. 5. Poorly controlled diabetes. PLAN: The patient remains stable. As per pulmonary rec-s will change abx to PO abx==> Augmentin and Doxycycline==> Levaquin is contraindicated with Cordarone, continue for 2 more weeks, f/u repeat cxr in 2 weeks [facility] staff Problems: Consultation Date/Type/Reason Admit Date/Time Mar 31, 2016 at 11:48 Type of Consultation: id Exam/Review of Systems Vital Signs Vitals Vital Signs Date Time Temp Pulse Resp B/P Pulse Ox O2 Delivery O2 Flow Rate FiO2 04/07/16 12:09 65 04/07/16 11:22 98.6 19 112/56 96 04/06/16 12:30 Room Air 04/03/16 20:45 2.0 Intake and Output 04/06/16 04/06/16 04/07/16 15:00 23:00 07:00 Intake Total 1640 ml 1000 ml Output Total 2600 ml 1400 ml Balance -960 ml -400 ml Results Result Diagram: 04/07/16 0701 04/06/16 0642 Results 24 hrs Laboratory Tests Test 04/06/16 17:14 04/06/16 21:21 04/07/16 06:02 04/07/16 07:01 Bedside Glucose 186 261 H 256 H Basophils # 0.0 Basophils % 0.1 Blood Morphology Comment Eosinophils # 0.0 Eosinophils % 0.5 Ferritin 619.0 H Hematocrit 31.4 L Hemoglobin 10.4 L Iron Level 18 L Lymphocytes # 0.7 L Lymphocytes % 7.6 L Mean Corpuscular Hemoglobin 26.7 L Mean Corpuscular Hemoglobin Concent 33.1 Mean Corpuscular Volume 80.8 L Mean Platelet Volume 6.4 L Monocytes # 1.6 H Monocytes % 16.7 H Neutrophils # 7.1 Neutrophils % 75.1 Nucleated Red Blood Cells # 0.0 Nucleated Red Blood Cells % 0.0 Percent Iron Saturation 10 L Platelet Count 540 H Red Blood Count 3.89 L Red Cell Distribution Width 12.2 Thyroid Stimulating Hormone (TSH) 2.960 Total Iron Binding Capacity 173 L White Blood Count 9.4 Test 04/07/16 07:50 04/07/16 08:22 04/07/16 12:00 Lab Scanned Report REFERENCE LAB Bedside Glucose 180 208 Medications Medications Current Medications Ondansetron HCl (Zofran Tab) 4 mg Q6H PRN PO NAUSEA AND/OR VOMITING; Start at 12:00 Acetaminophen (Tylenol Tab) 650 mg Q6H PRN PO PAIN LEVEL 1-3 OR FEVER Last administered on 04/05/16 20:40; Admin Dose 650 MG; Start 03/31/16 at 12:00 Acetaminophen (Tylenol Supp) 650 mg Q6H PRN [place] PAIN LEVEL 1-3 OR FEVER; Start 03/31/16 at 12:00 Bisacodyl (Dulcolax) 5 mg DAILY PRN PO CONSTIPATION; Start 03/31/16 at 12:00 Aspirin (Aspirin) 81 mg DAILY PO Last administered on 04/07/16 08:34; Admin Dose 81 MG; Start 04/02/16 at 09:00 Diagnostic Test (Pha) 1 ea 1 ea 02 XX Last administered on 04/03/16 01:43; Admin Dose 1 EA; Start 04/02/16 at 02:00 Piperacillin Sod/ Tazobactam Sod (Zosyn 3.375gm/ 100 ml (Pmx)) 100 ml @ 200 mls /hr Q8 IVPB Last administered on 04/07/16 06:03; Admin Dose 200 MLS/HR; Start 04/03/16 at 14:00 Lactobacillus Acidoph/Bulgaricus (Floranex) 1 tab TID PO Last administered on 08:33; Admin Dose 1 TAB; Start 04/03/16 at 13:00 Lisinopril (Zestril) 2.5 mg DAILY PO Last administered on 04/07/16 08:41; Admin Dose 2.5 MG; Start 04/04/16 at 09:00 Famotidine (Pepcid) 20 mg QPM PO Last administered on 04/06/16 21:23; Admin Dose 20 MG; Start 04/03/16 at 21:00 Docusate Sodium (Colace) 100 mg HS PO Last administered on 04/06/16 21:22; Admin Dose 100 MG; Start 04/03/16 at 21:00 Enoxaparin Sodium (Lovenox) 60 mg Q12 SC Last administered on 04/07/16 08:50; Admin Dose 60 MG; Start 04/03/16 at 15:00 Guaifenesin/ Dextromethorphan (Robitussin Dm Liquid Cup) 10 ml Q4H PRN PO COUGH ; Start 04/03/16 at 15:00 Potassium Chloride (Potassium Chloride Pwd/Soln) 40 meq BID PO Last administered on 04/07/16 08:34; Admin Dose 40 MEQ; Start 04/05/16 at 12:30 Insulin Glargine (Lantus) 24 unit HS SC Last administered on 04/06/16 21:38; Admin Dose 24 UNIT; Start 04/06/16 at 21:00 Amiodarone HCl (Cordarone) 200 mg BID PO Last administered on 04/07/16 08:36; Admin Dose 200 MG; Start 04/06/16 at 21:00 Carvedilol (Coreg) 6.25 mg BID PO Last administered on 04/07/16 08:36; Admin Dose 6.25 MG; Start 04/06/16 at 21:00 KEITH MENDOZA NP Apr 07, 2016 14:04
--- NOTE | 2016-04-07 14:43 | RADRPT ---
PROCEDURE: XR Chest. CLINICAL INDICATION: Pneumonia TECHNIQUE: Chest AP portable. COMPARISON: 04/02/2016 FINDINGS: The mediastinal structures are unremarkable. There is calcification of the thoracic aorta (consiste nt with atherosclerosis). There is mild cardiomegaly. There is pulmonary venous hypertension. The re is no change in the extensive left lung patchy consolidations. There is a small to moderate-size d left pleural effusion. There are senescent changes of the axial skeleton. IMPRESSION: Moderate cardiac enlargement. Pulmonary venous hypertension. No change in extensive left lung patchy consolidation most marked at the base. Small to moderate-sized left pleural effusion. RPTAT: HGDB .Oleg Huang MD, MD Date Time Electronically viewed and signed by .Oleg Huang MD, on 04/07/2016 14:42 .B/
[2016-04-07] MEDS: DOXYCYCLINE 100 MG TAB PO SCH (20:52)
[2016-04-07] MEDS: AMOXICILLIN/CLAV 875 MG TAB PO SCH (20:52)
[2016-04-07] MEDS: FAMOTIDINE 20 MG TAB PO SCH (20:53)
[2016-04-07] MEDS: DOCUSATE SODIUM 100 MG CAP PO SCH (20:53)
[2016-04-07] MEDS: INSULIN GLARGINE [LANtus] 3 ML PEN SC SCH (21:08)
[2016-04-08] VITALS (10 sets, daily range): BP systolic 116–135; BP diastolic 60–74; PULSE 59–71; RESP 18–20
[2016-04-08] MEDS: ACCUCHECK XX SCH (02:00)
[2016-04-08 06:48] LABS: BASOPHILS % 0.3 % (0.0-2.0); EOSINOPHILS # 0.1 10^3/ul (0.0-0.5); EOSINOPHILS % 1.4 % (0.0-7.0); HEMATOCRIT 31.3 % (42.0-52.0); HEMOGLOBIN 10.4 g/dl (14.0-18.0); LYMPHOCYTES # 1.1 10^3/ul (0.8-2.9); LYMPHOCYTES % 11.4 % (15.0-51.0); MEAN CORPUSCULAR HEMOGLOBIN 26.6 pg (29.0-33.0); MEAN CORPUSCULAR HGB CONC 33.3 g/dl (32.0-37.0); MEAN CORPUSCULAR VOLUME 80.1 fl (82.0-101.0); MEAN PLATELET VOLUME 6.4 fl (7.4-10.4); MONOCYTE # 1.8 10^3/ul (0.3-0.9); MONOCYTES % 19.1 % (0.0-11.0); NEUTROPHIL # 6.5 10^3/ul (1.6-7.5); NEUTROPHILS % 67.8 % (39.0-77.0); PLATELET COUNT 599 10^3/UL (140-440); RED BLOOD COUNT 3.91 10^6/ul (4.70-6.10); RED CELL DISTRIBUTION WIDTH 12.3 % (11.5-14.5); UNCORRECTED WBC 9.6 10^3/ul (4.8-10.8); WHITE BLOOD COUNT 9.6 10^3/ul (4.8-10.8)
[2016-04-08 06:54] LABS: CONDITION 1; LH ANALYZER COMMENTS 1
[2016-04-08] MEDS: INSULIN ASPART [NOVOLOG] 3 ML PEN SC SCH ×6 (07:55→18:05)
[2016-04-08] MEDS: POTASSIUM CHLORIDE 20 MEQ POWDER FOR ORAL SOLN PO SCH (09:01)
[2016-04-08] MEDS: AMOXICILLIN/CLAV 875 MG TAB PO SCH (09:02)
[2016-04-08] MEDS: ASPIRIN 81 MG TAB PO SCH (09:02)
[2016-04-08] MEDS: AMIODARONE 200 MG TAB PO SCH (09:03)
[2016-04-08] MEDS: DOXYCYCLINE 100 MG TAB PO SCH (09:03)
[2016-04-08] MEDS: LACTOBACILLUS CHEW TAB PO SCH ×2 (09:03→12:55)
[2016-04-08] MEDS: LISINOPRIL 5 MG TAB PO SCH (09:04)
[2016-04-08] MEDS: ENOXAPARIN 100 MG/ML SYG SC SCH (09:14)
--- NOTE | 2016-04-08 09:36 | CONS ---
Date/Time of Note Date/Time of Note DATE: 04/08/16 TIME: 09:30 Assessment/Plan Assessment/Plan Additional Assessment/Plan Assessment and recommendations; 1. Patient admitted with left lower lobe pneumonia status post thoracentesis findings are compatible with community acquired pneumonia without any evidence of Mycobacterium tuberculosis infection. Next 2. Paroxysmal atrial fibrillation currently in sinus rhythm. Patient can be transferred to the medical floor or perhaps can be discharged home as well on oral antibiotics. Antibiotics are to be prescribed by the infectious disease etl consultant. A follow-up chest x-ray will be required in 2 weeks time. Consultation Date/Type/Reason Admit Date/Time Mar 31, 2016 at 11:48 Type of Consultation: id [id number] HR Interval Summary Free Text/Dictation Patient's condition is stable. He denies any shortness of breath. Any chest pain. Also denies any coughing, wheezing, hemoptysis. Exam/Review of Systems Vital Signs Vitals Vital Signs Date Time Temp Pulse Resp B/P Pulse Ox O2 Delivery O2 Flow Rate FiO2 04/08/16 08:14 67 04/08/16 07:00 98.8 19 116/69 97 04/06/16 12:30 Room Air Intake and Output 04/07/16 04/07/16 04/08/16 15:00 23:00 07:00 Intake Total 720 ml 950 ml Output Total 950 ml 1100 ml Balance -230 ml -150 ml Exam HEENT examination; supple neck, no JVD, no lymphadenopathy, patient has a multiple missing teeth, pharynx is clear. Chest examination; diminished breath sounds bilaterally with improved breath sounds in left lower lobe area. S1-S2 audible. Regular rhythm. Abdomen examination; soft, nontender, nondistended, no organomegaly, bowel sounds audible. Extremity examination no peripheral edema. 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 Results Result Diagram: 04/08/16 0615 04/06/16 0642 Results 24 hrs Laboratory Tests Test 04/07/16 12:00 04/07/16 17:53 04/07/16 20:52 04/08/16 06:05 Bedside Glucose 208 158 201 125 Test 04/08/16 06:15 04/08/16 07:57 Basophils # 0.0 Basophils % 0.3 Blood Morphology Comment Eosinophils # 0.1 Eosinophils % 1.4 Hematocrit 31.3 L Hemoglobin 10.4 L Lymphocytes # 1.1 Lymphocytes % 11.4 L Mean Corpuscular Hemoglobin 26.6 L Mean Corpuscular Hemoglobin Concent 33.3 Mean Corpuscular Volume 80.1 L Mean Platelet Volume 6.4 L Monocytes # 1.8 H Monocytes % 19.1 H Neutrophils # 6.5 Neutrophils % 67.8 Nucleated Red Blood Cells # 0.0 Nucleated Red Blood Cells % 0.0 Platelet Count 599 H Red Blood Count 3.91 L Red Cell Distribution Width 12.3 White Blood Count 9.6 Bedside Glucose 115 Medications Medications Current Medications Ondansetron HCl (Zofran Tab) 4 mg Q6H PRN PO NAUSEA AND/OR VOMITING; Start at 12:00 Acetaminophen (Tylenol Tab) 650 mg Q6H PRN PO PAIN LEVEL 1-3 OR FEVER Last administered on 04/05/16 20:40; Admin Dose 650 MG; Start 03/31/16 at 12:00 Acetaminophen (Tylenol Supp) 650 mg Q6H PRN [place] PAIN LEVEL 1-3 OR FEVER; Start 03/31/16 at 12:00 Bisacodyl (Dulcolax) 5 mg DAILY PRN PO CONSTIPATION; Start 03/31/16 at 12:00 Aspirin (Aspirin) 81 mg DAILY PO Last administered on 04/08/16 09:02; Admin Dose 81 MG; Start 04/02/16 at 09:00 Diagnostic Test (Pha) (Accucheck) 1 ea 02 XX Last administered on 04/03/16 01: 43; Admin Dose 1 EA; Start 04/02/16 at 02:00 Lactobacillus Acidoph/Bulgaricus (Floranex) 1 tab TID PO Last administered on 09:03; Admin Dose 1 TAB; Start 04/03/16 at 13:00 Lisinopril (Zestril) 2.5 mg DAILY PO Last administered on 04/08/16 09:04; Admin Dose 2.5 MG; Start 04/04/16 at 09:00 Famotidine (Pepcid) 20 mg QPM PO Last administered on 04/07/16 20:53; Admin Dose 20 MG; Start 04/03/16 at 21:00 Docusate Sodium (Colace) 100 mg HS PO Last administered on 04/07/16 20:53; Admin Dose 100 MG; Start 04/03/16 at 21:00 Enoxaparin Sodium (Lovenox) 60 mg Q12 SC Last administered on 04/08/16 09:14; Admin Dose 60 MG; Start 04/03/16 at 15:00 Guaifenesin/ Dextromethorphan (Robitussin Dm Liquid Cup) 10 ml Q4H PRN PO COUGH Last administered on 04/07/16 20:53; Admin Dose 10 ML; Start 04/03/16 at 15:00 Potassium Chloride (Potassium Chloride Pwd/Soln) 40 meq BID PO Last administered on 04/08/16 09:01; Admin Dose 40 MEQ; Start 04/05/16 at 12:30 Insulin Glargine (Lantus) 24 unit HS SC Last administered on 04/07/16 21:08; Admin Dose 24 UNIT; Start 04/06/16 at 21:00 Amiodarone HCl (Cordarone) 200 mg BID PO Last administered on 04/08/16 09:03; Admin Dose 200 MG; Start 04/06/16 at 21:00 Carvedilol (Coreg) 6.25 mg BID PO Last administered on 04/08/16 09:04; Admin Dose 6.25 MG; Start 04/06/16 at 21:00 Doxycycline Hyclate (Vibramycin) 100 mg BID PO Last administered on 04/08/16 09:03; Admin Dose 100 MG; Start 04/07/16 at 21:00 Amoxicillin/ Clavulanate Potassium (Augmentin) 875 mg BID PO Last administered on 04/08/16 09:02; Admin Dose 875 MG; Start 04/07/16 at 21:00 JULIAN CABRAL Apr 08, 2016 09:36
--- NOTE | 2016-04-08 13:30 | PN ---
Date/Time of Note Date/Time of Note DATE: 04/08/16 TIME: 13:29 Assessment/Plan VTE Prophylaxis VTE Prophylaxis Intervention: SCD's Lines/Catheters IV [facility] [place] Lock Urinary Cath still in place: No Assessment/Plan Assessment/Plan Pneumonia Cardiomyopathy with ejection fraction 35% New-onset atrial fibrillation Mildly elevated troponin Diabetes -Patient remains in sinus rhythm, -continue coreg/acei -on amiodarone > may d/c in the future if persistent afib .-Patient currently on Lovenox for anticoagulation, if not plan for any further procedures, would transition to oral anticoagulants. Subjective 24 Hr Interval Summary Free Text/Dictation The patient with no change Exam/Review of Systems Vital Signs Vitals Vital Signs Date Time Temp Pulse Resp B/P Pulse Ox O2 Delivery O2 Flow Rate FiO2 04/08/16 12:33 71 04/08/16 12:00 97.9 20 129/73 64 04/06/16 12:30 Room Air Intake and Output 04/07/16 04/07/16 04/08/16 15:00 23:00 07:00 Intake Total 720 ml 950 ml Output Total 950 ml 1100 ml Balance -230 ml -150 ml Results Result Diagram: 04/08/16 0615 04/06/16 0642 Results 24 hrs Laboratory Tests Test 04/07/16 17:53 04/07/16 20:52 04/08/16 06:05 04/08/16 06:15 Bedside Glucose 158 201 125 Basophils # 0.0 Basophils % 0.3 Blood Morphology Comment Eosinophils # 0.1 Eosinophils % 1.4 Hematocrit 31.3 L Hemoglobin 10.4 L Lymphocytes # 1.1 Lymphocytes % 11.4 L Mean Corpuscular Hemoglobin 26.6 L Mean Corpuscular Hemoglobin Concent 33.3 Mean Corpuscular Volume 80.1 L Mean Platelet Volume 6.4 L Monocytes # 1.8 H Monocytes % 19.1 H Neutrophils # 6.5 Neutrophils % 67.8 Nucleated Red Blood Cells # 0.0 Nucleated Red Blood Cells % 0.0 Platelet Count 599 H Red Blood Count 3.91 L Red Cell Distribution Width 12.3 White Blood Count 9.6 Test 04/08/16 07:57 04/08/16 12:13 Bedside Glucose 115 149 Medications Medications Current Medications Ondansetron HCl (Zofran Tab) 4 mg Q6H PRN PO NAUSEA AND/OR VOMITING; Start at 12:00 Acetaminophen (Tylenol Tab) 650 mg Q6H PRN PO PAIN LEVEL 1-3 OR FEVER Last administered on 04/05/16 20:40; Admin Dose 650 MG; Start 03/31/16 at 12:00 Acetaminophen (Tylenol Supp) 650 mg Q6H PRN [place] PAIN LEVEL 1-3 OR FEVER; Start 03/31/16 at 12:00 Bisacodyl (Dulcolax) 5 mg DAILY PRN PO CONSTIPATION; Start 03/31/16 at 12:00 Aspirin (Aspirin) 81 mg DAILY PO Last administered on 04/08/16 09:02; Admin Dose 81 MG; Start 04/02/16 at 09:00 Diagnostic Test (Pha) (Accucheck) 1 ea 02 XX Last administered on 04/03/16 01: 43; Admin Dose 1 EA; Start 04/02/16 at 02:00 Lactobacillus Acidoph/Bulgaricus (Floranex) 1 tab TID PO Last administered on 09:03; Admin Dose 1 TAB; Start 04/03/16 at 13:00 Lisinopril (Zestril) 2.5 mg DAILY PO Last administered on 04/08/16 09:04; Admin Dose 2.5 MG; Start 04/04/16 at 09:00 Famotidine (Pepcid) 20 mg QPM PO Last administered on 04/07/16 20:53; Admin Dose 20 MG; Start 04/03/16 at 21:00 Docusate Sodium (Colace) 100 mg HS PO Last administered on 04/07/16 20:53; Admin Dose 100 MG; Start 04/03/16 at 21:00 Enoxaparin Sodium (Lovenox) 60 mg Q12 SC Last administered on 04/08/16 09:14; Admin Dose 60 MG; Start 04/03/16 at 15:00 Guaifenesin/ Dextromethorphan (Robitussin Dm Liquid Cup) 10 ml Q4H PRN PO COUGH Last administered on 04/07/16 20:53; Admin Dose 10 ML; Start 04/03/16 at 15:00 Potassium Chloride (Potassium Chloride Pwd/Soln) 40 meq BID PO Last administered on 04/08/16 09:01; Admin Dose 40 MEQ; Start 04/05/16 at 12:30 Insulin Glargine (Lantus) 24 unit HS SC Last administered on 04/07/16 21:08; Admin Dose 24 UNIT; Start 04/06/16 at 21:00 Amiodarone HCl (Cordarone) 200 mg BID PO Last administered on 04/08/16 09:03; Admin Dose 200 MG; Start 04/06/16 at 21:00 Carvedilol (Coreg) 6.25 mg BID PO Last administered on 04/08/16 09:04; Admin Dose 6.25 MG; Start 04/06/16 at 21:00 Doxycycline Hyclate (Vibramycin) 100 mg BID PO Last administered on 04/08/16 09:03; Admin Dose 100 MG; Start 04/07/16 at 21:00 Amoxicillin/ Clavulanate Potassium (Augmentin) 875 mg BID PO Last administered on 04/08/16 09:02; Admin Dose 875 MG; Start 04/07/16 at 21:00 GENE KELLEY MD Apr 08, 2016 13:30
[2016-04-08] MEDS ORDERED: ASPI81TA3 PO (13:33)
[2016-04-08] MEDS ORDERED: AMOX1TAB10 PO (13:33)
[2016-04-08] MEDS ORDERED: DOXY100T2 PO (13:33)
[2016-04-08] MEDS ORDERED: LANT3I SC (13:33)
[2016-04-08] MEDS ORDERED: LISI-313 PO (13:33)
[2016-04-08] MEDS ORDERED: CARV3.1260 PO (13:33)
[2016-04-08] MEDS ORDERED: NOVO3I SC ×2 (13:33)
[2016-04-08] MEDS ORDERED: ACID1TAB14 PO (13:33)
[2016-04-08] MEDS ORDERED: AMIO200T2 PO (13:33)
[2016-04-08] MEDS ORDERED: APIX5TAB PO (13:44)
--- NOTE | 2016-04-08 13:44 | DS ---
Date/Time of Note Date/Time of Note DATE: 04/08/16 TIME: 13:34 Discharge Summary Admission/Discharge Info Admit Date/Time Mar 31, 2016 at 11:48 Discharge Date/Time Final Diagnosis 1. Multilobar cavitating pneumonia, improving, follow up with PCP 2. Exudative pleural effusion, status post thoracentesis 3. Systemic inflammatory response syndrome secondary to above, resolved 4. Cardiomyopathy status post rapid atrial fibrillation, on amiodarone. follow up with cardiology 5. Diabetes mellitus, on insulins, follow up with PCP 6. Microcytic anemia, stable Hx of Present Illness HISTORY OF PRESENT ILLNESS: This is an 85-year-old gentleman with past medical history of diabetes mellitus, noncompliant with his medication, who has traveled to [facility] from [facility]. About 2 months ago has been having 3 weeks of cough and congestion and upper back pain since yesterday. The cough started about 3 weeks ago, not accompanied with any shortness of breath with sputum. Cough is productive. No evidence of hematemesis, hematochezia, hematemesis. No night sweats. No change in his activity or strain. He denies having any abdominal pain, nausea, vomiting, diarrhea. No headache, dizziness, lightheadedness. No change in visual acuity, diplopia, photophobia. No neck pain, no restricted range of motion in upper and lower extremity or any other discomfort except what was stated above. The patient does not recall the medication that he was on when he was in [facility], although he has not taken his diabetic medications since he has been in the [facility]. He is planning to travel back to [facility] about a month from now. At this time he resides with his family member, there is no sick contact, nobody else has the above signs and symptoms. Also there is no one in the family is complaining of having cough with shortness of breath. Hospital Course X-ray indicated multilobar pneumonia that he had negative AFBs. He has been treated with antibiotics that significantly improved his symptoms. He is afebrile and no shortness of breath. He will be on augmentin and doxycycline for another week. Patient has patient had atrial fibrillation that converted to sinus rhythm and he is on amiodarone 200 mg po daily. and he is on eliquis 5 mg po bid. 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 Patient is stable cardiac sprague. He will follow up with Dr. Daniels for further medication adjustment. Home Meds Active Scripts Lisinopril* (Lisinopril*) 5 Mg Tablet, 2.5 MG PO DAILY for 30 Days, TAB Prov:JUANY SERRATO MD 04/08/16 Lactobacillus Acidoph/Bulgaricus* (Floranex*) 1 Each Tablet, 1 TAB PO TID for 10 Days, TAB Prov:JUANY SERRATO MD 04/08/16 Insulin Aspart* (Novolog Insulin Pen*) 100 Unit/Ml Soln, 0 UNIT SC WITH MEALS BEDTIME for 30 Days Prov:JUANY SERRATO MD 04/08/16 Insulin Glargine* (Lantus*) 100 Unit/Ml Soln, 24 UNIT SC HS for 30 Days Prov:JUANY SERRATO MD 04/08/16 Insulin Aspart* (Novolog Insulin Pen*) 100 Unit/Ml Soln, 10 UNIT SC WITH MEALS for 30 Days Prov:JUANY SERRATO MD 04/08/16 Doxycycline* (Vibramycin*) 100 Mg Tab, 100 MG PO BID for 7 Days, TAB Prov:JUANY SERRATO MD 04/08/16 Carvedilol* (Carvedilol*) 3.125 Mg Tablet, 6.25 MG PO BID for 30 Days, TAB Prov:JUANY SERRATO MD 04/08/16 Aspirin (Aspirin) 81 Mg Chew, 81 MG PO DAILY for 30 Days, TAB Prov:JUANY SERRATO MD 04/08/16 Amoxicillin/Potassium Clav (Amox-Clav 875-125 mg Tablet) 875-125 mg Tab, 875 MG PO BID for 7 Days, TAB Prov:JUANY SERRATO MD 04/08/16 Amiodarone Hcl* (Amiodarone Hcl*) 200 Mg Tablet, 200 MG PO BID for 30 Days, TAB Prov:JUANY SERRATO MD 04/08/16 Follow-up Plan PCP [address] Daniels in 1-2 weeks Pending Labs Laboratory Tests Test 04/07/16 17:53 04/07/16 20:52 04/08/16 06:05 04/08/16 06:15 Bedside Glucose 158mg/dL (70-220) 201mg/dL (70-220) 125mg/dL (70-220) Basophils # 0.010^3/ul (0.0-0.1) Basophils % 0.3% (0.0-2.0) Blood Morphology Comment Eosinophils # 0.110^3/ul (0.0-0.5) Eosinophils % 1.4% (0.0-7.0) Hematocrit 31.3% (42.0-52.0) Hemoglobin 10.4g/dl (14.0-18.0) Lymphocytes # 1.110^3/ul (0.8-2.9) Lymphocytes % 11.4% (15.0-51.0) Mean Corpuscular Hemoglobin 26.6pg (29.0-33.0) Mean Corpuscular Hemoglobin Concent 33.3g/dl (32.0-37.0) Mean Corpuscular Volume 80.1fl (82.0-101.0) Mean Platelet Volume 6.4fl (7.4-10.4) Monocytes # 1.810^3/ul (0.3-0.9) Monocytes % 19.1% (0.0-11.0) Neutrophils # 6.510^3/ul (1.6-7.5) Neutrophils % 67.8% (39.0-77.0) Nucleated Red Blood Cells # 0.010^3/ul (0.0-0.0) Nucleated Red Blood Cells % 0.0/100WBC (0.0-0.0) Platelet Count 36494^3/UL (140-440) Red Blood Count 3.9110^6/ul (4.70-6.10) Red Cell Distribution Width 12.3% (11.5-14.5) White Blood Count 9.610^3/ul (4.8-10.8) Test 04/08/16 07:57 04/08/16 12:13 Bedside Glucose 115mg/dL (70-220) 149mg/dL (70-220) JUANY SERRATO MD Apr 08, 2016 13:44
--- NOTE | 2016-04-08 15:07 | CONS ---
Date/Time of Note Date/Time of Note DATE: 04/08/16 TIME: 15:07 Assessment/Plan Assessment/Plan Chief Complaint/Hosp Course Subjective: Awake, looks comfortable no fevers, nad MICROBIOLOGY: Sputum for AFB smear 4 sets negative. Thoracentesis fluid culture negative. ANTIMICROBIALS: Augmentin, Doxycycline PHYSICAL EXAMINATION: GENERAL: Well-developed, fragile, elderly man who is awake, in no distress. HEENT: Head atraumatic, normocephalic. Sclerae anicteric. Buccal mucosa dry. NECK: Supple. CHEST: Rise symmetrical. Breath sounds diminished to bases with scattered crackles. HEART: S1, S2. ABDOMEN: Soft, bowel sounds present. EXTREMITIES: No cyanosis. ASSESSMENT: 1. Multifocal cavitating pneumonia===> AFB smear neg 3 sets 2. Exudative pleural effusion, status post thoracentesis. 3. Systemic inflammatory response syndrome secondary to above. 4. Cardiomyopathy status post rapid atrial fibrillation, on amiodarone. 5. Poorly controlled diabetes. PLAN: The patient remains stable. As per pulmonary rec-s will change abx to PO abx==> Augmentin and Doxycycline==> Levaquin is contraindicated with Cordarone, continue for 2 more weeks, f/u repeat cxr in 2 weeks [facility] staff Problems: Consultation Date/Type/Reason Admit Date/Time Mar 31, 2016 at 11:48 Type of Consultation: id Exam/Review of Systems Vital Signs Vitals Vital Signs Date Time Temp Pulse Resp B/P Pulse Ox O2 Delivery O2 Flow Rate FiO2 04/08/16 12:33 71 04/08/16 12:00 97.9 20 129/73 64 04/06/16 12:30 Room Air Intake and Output 04/07/16 04/07/16 04/08/16 15:00 23:00 07:00 Intake Total 720 ml 950 ml Output Total 950 ml 1100 ml Balance -230 ml -150 ml Results Result Diagram: 04/08/16 0615 04/06/16 0642 Results 24 hrs Laboratory Tests Test 04/07/16 17:53 04/07/16 20:52 04/08/16 06:05 04/08/16 06:15 Bedside Glucose 158 201 125 Basophils # 0.0 Basophils % 0.3 Blood Morphology Comment Eosinophils # 0.1 Eosinophils % 1.4 Hematocrit 31.3 L Hemoglobin 10.4 L Lymphocytes # 1.1 Lymphocytes % 11.4 L Mean Corpuscular Hemoglobin 26.6 L Mean Corpuscular Hemoglobin Concent 33.3 Mean Corpuscular Volume 80.1 L Mean Platelet Volume 6.4 L Monocytes # 1.8 H Monocytes % 19.1 H Neutrophils # 6.5 Neutrophils % 67.8 Nucleated Red Blood Cells # 0.0 Nucleated Red Blood Cells % 0.0 Platelet Count 599 H Red Blood Count 3.91 L Red Cell Distribution Width 12.3 White Blood Count 9.6 Test 04/08/16 07:57 04/08/16 12:13 Bedside Glucose 115 149 Medications Medications Current Medications Ondansetron HCl (Zofran Tab) 4 mg Q6H PRN PO NAUSEA AND/OR VOMITING; Start at 12:00 Acetaminophen (Tylenol Tab) 650 mg Q6H PRN PO PAIN LEVEL 1-3 OR FEVER Last administered on 04/05/16 20:40; Admin Dose 650 MG; Start 03/31/16 at 12:00 Acetaminophen (Tylenol Supp) 650 mg Q6H PRN [place] PAIN LEVEL 1-3 OR FEVER; Start 03/31/16 at 12:00 Bisacodyl (Dulcolax) 5 mg DAILY PRN PO CONSTIPATION; Start 03/31/16 at 12:00 Aspirin (Aspirin) 81 mg DAILY PO Last administered on 04/08/16 09:02; Admin Dose 81 MG; Start 04/02/16 at 09:00 Diagnostic Test (Pha) (Accucheck) 1 ea 02 XX Last administered on 04/03/16 01: 43; Admin Dose 1 EA; Start 04/02/16 at 02:00 Lactobacillus Acidoph/Bulgaricus (Floranex) 1 tab TID PO Last administered on 12:55; Admin Dose 1 TAB; Start 04/03/16 at 13:00 Lisinopril (Zestril) 2.5 mg DAILY PO Last administered on 04/08/16 09:04; Admin Dose 2.5 MG; Start 04/04/16 at 09:00 Famotidine (Pepcid) 20 mg QPM PO Last administered on 04/07/16 20:53; Admin Dose 20 MG; Start 04/03/16 at 21:00 Docusate Sodium (Colace) 100 mg HS PO Last administered on 04/07/16 20:53; Admin Dose 100 MG; Start 04/03/16 at 21:00 Enoxaparin Sodium (Lovenox) 60 mg Q12 SC Last administered on 04/08/16 09:14; Admin Dose 60 MG; Start 04/03/16 at 15:00 Guaifenesin/ Dextromethorphan (Robitussin Dm Liquid Cup) 10 ml Q4H PRN PO COUGH Last administered on 04/07/16 20:53; Admin Dose 10 ML; Start 04/03/16 at 15:00 Potassium Chloride (Potassium Chloride Pwd/Soln) 40 meq BID PO Last administered on 04/08/16 09:01; Admin Dose 40 MEQ; Start 04/05/16 at 12:30 Insulin Glargine (Lantus) 24 unit HS SC Last administered on 04/07/16 21:08; Admin Dose 24 UNIT; Start 04/06/16 at 21:00 Amiodarone HCl (Cordarone) 200 mg BID PO Last administered on 04/08/16 09:03; Admin Dose 200 MG; Start 04/06/16 at 21:00 Carvedilol (Coreg) 6.25 mg BID PO Last administered on 04/08/16 09:04; Admin Dose 6.25 MG; Start 04/06/16 at 21:00 Doxycycline Hyclate (Vibramycin) 100 mg BID PO Last administered on 04/08/16 09:03; Admin Dose 100 MG; Start 04/07/16 at 21:00 Amoxicillin/ Clavulanate Potassium (Augmentin) 875 mg BID PO Last administered on 04/08/16 09:02; Admin Dose 875 MG; Start 04/07/16 at 21:00 KEITH MENDOZA NP Apr 08, 2016 15:07
== END 2016-04-08 18:05 | disposition home or self-care (01) | DRG 193 ==
LOC: E/R 09:22 → TEL 11:48
PROVIDERS: ADMIT Family Medicine; ATTEND Family Medicine
PROC: 0W9B3ZZ Drainage of Left Pleural Cavity, Percutaneous Approach (ICD-10-PCS; principal; 2016-04-02)
DX: J18.1 Lobar pneumonia, unspecified organism (principal); J96.01 Acute respiratory failure with hypoxia; E87.0 Hyperosmolality and hypernatremia; R64 Cachexia; J90 Pleural effusion, not elsewhere classified; I24.8 Other forms of acute ischemic heart disease; I42.9 Cardiomyopathy, unspecified; E11.65 Type 2 diabetes mellitus with hyperglycemia; J98.19 Other pulmonary collapse; Z68.24 Body mass index [BMI] 24.0-24.9, adult; Z91.14 Patient's other noncompliance with medication regimen; D50.9 Iron deficiency anemia, unspecified; I48.91 Unspecified atrial fibrillation; J98.4 Other disorders of lung
CPT/HCPCS: 32555; 36415; 71010; 71260; 72040; 72100; 80048; 80053; 80061; 81003; 82010; 82306; 82550; 82553; 82728; 82945; 82962; 83036; 83540; 83605; 83615; 83735; 84100; 84157; 84443; 84484; 85025; 85610; 85730; 86480; 86580; 86635; 87040; 87070; 87086; 87102; 87116; 88104; 88305; 89050; 90686; 93005; 93306; 96372; 96374; 96375; J0282; J0696; J1650; J1815; J1956; J2543; J3475; J7030; J7040; Q9967